=== PATIENT | female | born 1930 | race Caucasian/White ===

== ENCOUNTER 2016-10-07 02:12 | Inpatient (IN) | payer OTHER, MEDICARE ==
[~2016-10-07] VITALS: Ht 167.6 cm; Wt 69.3 kg
[2016-10-07] VITALS (8 sets, daily range): BP systolic 97–122; BP diastolic 45–59; PULSE 80–112; RESP 18–22; TEMP 97.2–98.5; O2SAT 94–100
[2016-10-07] MEDS ORDERED: ONDANSETRON HCL 4 MG/2 ML VIAL ONE (02:19)
[2016-10-07] MEDS ORDERED: SODIUM CHLORIDE 0.9% FLUSH 10 ML FLUSH IVF PRN (02:45)
[2016-10-07 02:58] LABS: AUTOMATED NEUTROPHIL # 7.1 TH/MM3 (1.8-7.7); BASOPHIL # 0.1 TH/MM3 (0-0.2); BASOPHIL % 0.9 % (0.0-2.0); EOSINOPHIL # 0.1 TH/MM3 (0-0.4); EOSINOPHIL % 1.2 % (0.0-4.0); HEMO FLAGS DIFF FINAL; LYMPH % 20.5 % (9.0-44.0); MEAN CORPUSCULAR HEMOGLOBIN 31.5 PG (27.0-34.0); MEAN CORPUSCULAR HGB CONC 34.3 % (32.0-36.0); MONO % 5.6 % (0.0-8.0); NEUT % 71.8 % (16.0-70.0); PLATELET COUNT 221 TH/MM3 (150-450); RED BLOOD COUNT 4.13 MIL/MM3 (4.00-5.30); RED CELL DISTRIBUTION WIDTH 15.8 % (11.6-17.2); WHITE BLOOD COUNT 9.8 TH/MM3 (4.0-11.0)
[2016-10-07] MEDS ORDERED: ONDANSETRON HCL 4 MG/2 ML VIAL IV PUSH ONE (03:00)
[2016-10-07 03:08] LABS: APTT (PATIENT) 22.9 SEC (24.3-30.1); PROTHROMBIN TIME - PATIENT 10.8 SEC (9.8-11.6)
[2016-10-07 03:14] LABS: ALT (GPT) 75 U/L (10-53); ANION GAP 8 MEQ/L (5-15); AST (GOT) 109 U/L (15-37); BICARBONATE 25.2 MEQ/L (21.0-32.0); CHLORIDE 107 MEQ/L (98-107); GLOMERULAR FILTRATION RATE 52 ML/MIN (>89); POTASSIUM 4.1 MEQ/L (3.5-5.1); SODIUM (NA) 140 MEQ/L (136-145)
--- NOTE | 2016-10-07 03:14 | RADRPT ---
EXAM DATE/TIME: 10/07/2016 02:59 [facility] COMPARISON: No previous studies available for comparison. INDICATIONS : Short of breath. MEDICAL HISTORY : None. SURGICAL HISTORY : None. ENCOUNTER: Initial ACUITY: 1 day PAIN SCORE: 6/10 LOCATION: Bilateral chest FINDINGS: There is bilateral mostly basilar lung consolidation, worse on the right. Heart size enlarged. Mitral annular calcifications present. Tortuous atherosclerotic aorta. CONCLUSION: 1. Bilateral mostly basilar lung consolidation. Cardiomegaly. Findings could be characteristic of con gestive heart failure. Cannot exclude underlying pneumonia on the right. No pneumothorax. Parker Holman MD on October 07, 2016 at 3:12 Board Certified Radiologist. This report was verified electronically.
[2016-10-07] MEDS ORDERED: FUROSEMIDE 40 MG/4 ML VIAL IV PUSH ONE (03:15)
[2016-10-07 03:20] LABS: ALKALINE PHOSPHATASE 122 U/L (45-117); BLOOD UREA NITROGEN 24 MG/DL (7-18); TOTAL BILIRUBIN ADULT 0.7 MG/DL (0.2-1.0)
[2016-10-07 03:28] LABS: CREATINE KINASE 94 U/L (26-192)
[2016-10-07] MEDS ORDERED: ASPIRIN 81 MG CHEW TAB CHEW ONE (03:45)
[2016-10-07] MEDS ORDERED: METF500T PO (03:59)
[2016-10-07] MEDS ORDERED: LEVO25TA4 PO (03:59)
[2016-10-07] MEDS ORDERED: TRAZ50TA12 PO (03:59)
[2016-10-07] MEDS ORDERED: TRAM50TA PO (03:59)
[2016-10-07] MEDS ORDERED: SIMV5TAB3 PO (03:59)
--- NOTE | 2016-10-07 04:19 | PD ---
HPI Chief Complaint: Respiratory Distress Time Seen by Provider: 02:32 Travel History International Travel<30 days: No Contact w/Intl Traveler<30days: No Traveled to known affect area: No History of Present Illness HPI Patient is a 86 year old female who comes in complaining of SOB. She says she has had worsening SOB for the past month. Tonight it got much worse and she had to call 9--1. When EMS arrived, she had an oxygen saturation of 80% and was struggling to breath. She was given albuterol and placed on CPAP. She says she never had any chest pain. She does say she has been feeling weak. Laying down and any exertion make the SOB worse. She denies fever or chills. She has not had any swelling of her extremities. PFSH Past Medical History High Cholesterol: Yes Diabetes: Yes Patient Takes Glucophage: Yes Diminished Hearing: No Thyroid Disease: Yes Tetanus Vaccination: Unknown Influenza Vaccination: Yes Social History Alcohol Use: No Tobacco Use: No Substance Use: No Allergies-Medications (Allergen,Severity, Reaction): Coded Allergies: Penicillin (Verified Allergy, Unknown, 10/07/16) Reported Meds & Prescriptions Reported Meds & Active Scripts Active Reported Simvastatin 5 Mg Tab 5 Mg PO DAILY Metformin (Metformin HCl) 500 Mg Tab 500 Mg PO DAILY With a meal Levothyroxine (Levothyroxine Sodium) 25 Mcg Tab 25 Mcg PO DAILY Tramadol (Tramadol HCl) 50 Mg Tab 50 Mg PO Q4H PRN Trazodone (Trazodone HCl) 50 Mg Tab 50 Mg PO HS Review of Systems Except as stated in HPI: all other systems reviewed are Neg General / Constitutional: No: Fever, Chills HENT: No: Headaches Cardiovascular: No: Chest Pain or Discomfort Respiratory: Positive: Shortness of Breath Gastrointestinal: No: Nausea, Vomiting Musculoskeletal: No: Edema, Pain Skin: No Rash, No Change in Pigmentation Neurologic: Positive: Weakness Physical Exam Narrative GENERAL: Awake and alert, in mild respiratory distress. SKIN: Focused skin assessment warm/dry. HEAD: Atraumatic. Normocephalic. EYES: Pupils equal and round. No scleral icterus. ENT: Mucous membranes pink and moist. NECK: Trachea midline. No JVD. CARDIOVASCULAR: Regular rate and rhythm. No murmur appreciated. RESPIRATORY: No accessory muscle use. Crackles at both lung bases. Breath sounds equal bilaterally. GASTROINTESTINAL: Abdomen soft, non-tender, nondistended. MUSCULOSKELETAL: No obvious deformities. No clubbing. No cyanosis. No edema. NEUROLOGICAL: Awake and alert. No obvious cranial nerve deficits. Motor grossly within normal limits. Normal speech. PSYCHIATRIC: Appropriate mood and affect; insight and judgment normal. Data Data Last Documented VS Vital Signs Date Time Temp Pulse Resp B/P Pulse Ox O2 Delivery O2 Flow Rate FiO2 10/07/16 02:25 110 22 96 Nasal Cannula 4 10/07/16 02:20 97.7 115/58 Orders Ondansetron Inj (Zofran Inj) (10/07/16 02:19) Complete Blood Count With Diff (10/07/16 02:33) Comprehensive Metabolic Panel (10/07/16 02:33) B-Type Natriuretic Peptide (10/07/16 02:33) Act Partial Throm Time (Ptt) (10/07/16 02:33) Prothrombin Time / Inr (Pt) (10/07/16 02:33) Ckmb (Isoenzyme) Profile (10/07/16 02:33) Troponin I (10/07/16 02:33) Iv Access Insert/Monitor (10/07/16 02:33) Ecg Monitoring (10/07/16 02:33) Oximetry (10/07/16 02:33) Oxygen Administration (10/07/16 02:33) Chest, Single Ap (10/07/16 02:33) Sodium Chloride 0.9% Flush (Ns Flush) (10/07/16 02:45) Ondansetron Inj (Zofran Inj) (10/07/16 03:00) Furosemide Inj (Lasix Inj) (10/07/16 03:15) Aspirin Chew (Aspirin Chew) (10/07/16 03:45) Admit Order (Ed Use Only) (10/07/16 ) Labs Laboratory Tests Test 10/07/16 02:30 White Blood Count 9.8 TH/MM3 Red Blood Count 4.13 MIL/MM3 Hemoglobin 13.0 GM/DL Hematocrit 38.0 % Mean Corpuscular Volume 92.0 FL Mean Corpuscular Hemoglobin 31.5 PG Mean Corpuscular Hemoglobin 34.3 % Concent Red Cell Distribution Width 15.8 % Platelet Count 221 TH/MM3 Mean Platelet Volume 8.4 FL Neutrophils (%) (Auto) 71.8 % Lymphocytes (%) (Auto) 20.5 % Monocytes (%) (Auto) 5.6 % Eosinophils (%) (Auto) 1.2 % Basophils (%) (Auto) 0.9 % Neutrophils # (Auto) 7.1 TH/MM3 Lymphocytes # (Auto) 2.0 TH/MM3 Monocytes # (Auto) 0.5 TH/MM3 Eosinophils # (Auto) 0.1 TH/MM3 Basophils # (Auto) 0.1 TH/MM3 CBC Comment DIFF FINAL Differential Comment Prothrombin Time 10.8 SEC Prothromb Time International 1.0 RATIO Ratio Activated Partial 22.9 SEC Thromboplast Time Sodium Level 140 MEQ/L Potassium Level 4.1 MEQ/L Chloride Level 107 MEQ/L Carbon Dioxide Level 25.2 MEQ/L Anion Gap 8 MEQ/L Blood Urea Nitrogen 24 MG/DL Creatinine 1.00 MG/DL Estimat Glomerular Filtration 52 ML/MIN Rate Random Glucose 233 MG/DL Calcium Level 9.1 MG/DL Total Bilirubin 0.7 MG/DL Aspartate Amino Transf 109 U/L (AST/SGOT) Alanine Aminotransferase 75 U/L (ALT/SGPT) Alkaline Phosphatase 122 U/L Total Creatine Kinase 94 U/L Troponin I 0.14 NG/ML B-Type Natriuretic Peptide 429 PG/ML Total Protein 6.7 GM/DL Albumin 3.5 GM/DL Thyroid Stimulating Hormone 0.416 uIU/ML 3rd Gen [facility] Medical Decision Making Medical Screen Exam Complete: Yes Emergency Medical Condition: Yes Interpretation(s) ECG shows sinus tachycardia, no ST elevation, t wave inversions in V5 and V6, 1mm depression in I and avL. Differential Diagnosis ACS vs pneumonia vs CHF Narrative Course Patient is a 86 year old female who comes in complaining of SOB. Exam shows crackles at both bases of the lungs. Patient is maintaining an oxygen saturation of 96% on NC. She is much more comfortable with her breathing now. IV established, labs sent. Connected to a dynamometer tuner. Labs show a troponin of 0.14. Patient given aspirin. She never had chest pain , so will hold heparin for now and see if her troponin goes up. BNP is elevated to 429. Given Lasix. AST and ALT are also mildly elevated. Chest XR shows bilateral pleural effusions and cardiomegaly. Patient will be admitted for further management. Diagnosis Primary Impression: CHF (congestive heart failure) Qualified Code: I50.21 - Acute systolic congestive heart failure Additional Impression: Hypoxia Admitting Information Admitting Physician Requests: Admit Donna Carreno MD Oct 07, 2016 04:19
[2016-10-07] MEDS ORDERED: LEVOFLOXACIN 750 MG TAB PO ONE (04:45)
[2016-10-07] MEDS ORDERED: traMADol HCL 50 MG TAB PO PRN (04:45)
[2016-10-07] MEDS ORDERED: BISACODYL 10 MG SUPP PR PRN (04:45)
[2016-10-07] MEDS ORDERED: SENNOSIDES 8.6 MG TAB PO PRN (04:45)
[2016-10-07] MEDS ORDERED: NALOXONE HCL 0.4 MG/ML AMP IV PRN (04:45)
[2016-10-07] MEDS ORDERED: ONDANSETRON HCL 4 MG/2 ML VIAL IVP PRN (04:45)
[2016-10-07] MEDS ORDERED: MAGNESIUM HYDROXIDE SUSP 30 ML CUP PO PRN (04:45)
[2016-10-07] MEDS ORDERED: SODIUM CHLORIDE 0.9% FLUSH 10 ML FLUSH IV FLUSH PRN (04:45)
[2016-10-07] MEDS ORDERED: DEXTROSE 50% IN WATER 50 ML VIAL(D50) IV PUSH PRN (05:00)
[2016-10-07] MEDS ORDERED: RESP: IPRATROPIUM 0.5 MG/2.5 ML NEB NEB PRN (05:00)
[2016-10-07] MEDS ORDERED: GLUCAGON 1 MG/ML VIAL OTHER PRN (05:00)
[2016-10-07] MEDS: LEVOTHYROXINE SODIUM 25 MCG TAB PO SCH (05:54)
--- NOTE | 2016-10-07 06:58 | RADRPT ---
EXAM DATE/TIME: 10/07/2016 06:36 [facility] COMPARISON: CHEST SINGLE AP, October 07, 2016, 2:59. INDICATIONS : Possible pneumonia. Short of breath. MEDICAL HISTORY : None. SURGICAL HISTORY : None. ENCOUNTER: Subsequent ACUITY: 2 days PAIN SCORE: 6/10 LOCATION: Bilateral chest FINDINGS: PA and lateral views of the chest demonstrate bilateral pleural effusions, right greater than left wi th basilar airspace consolidation. No pneumothorax. CONCLUSION: Basilar airspace disease and pleural effusions, right greater than left with cardiomegaly. Findings m ost characteristic of congestive heart failure. No significant change from earlier exam. Parker Holman MD on October 07, 2016 at 6:55 Board Certified Radiologist. This report was verified electronically.
[2016-10-07] MEDS: INSULIN ASPART SUPPLEMENTAL SCALE SQ SCH ×4 (07:00→21:00)
[2016-10-07] MEDS: SODIUM CHLORIDE 0.9% FLUSH 10 ML FLUSH IV FLUSH SCH ×2 (09:00→21:00)
[2016-10-07] MEDS ORDERED: HEPARIN-D5W INJ 250 ML IV SCH (10:00)
[2016-10-07 10:44] LABS: MEAN CELL VOLUME 89.6 FL (80.0-100.0); MEAN CORPUSCULAR HEMOGLOBIN 30.8 PG (27.0-34.0); MEAN CORPUSCULAR HGB CONC 34.4 % (32.0-36.0); PLATELET COUNT 191 TH/MM3 (150-450); RED BLOOD COUNT 3.68 MIL/MM3 (4.00-5.30); REVIEW FLAG FINAL; WHITE BLOOD COUNT 5.9 TH/MM3 (4.0-11.0)
[2016-10-07 10:52] LABS: APTT (PATIENT) 25.8 SEC (24.3-30.1); PROTHROMBIN TIME - PATIENT 10.9 SEC (9.8-11.6)
[2016-10-07] MEDS: PRAVASTATIN SOD 10 MG TAB PO SCH (11:20)
[2016-10-07] MEDS: ASPIRIN EC 81 MG TABEC PO SCH (11:20)
--- NOTE | 2016-10-07 11:42 | HHI.HP ---
HPI Service [facility] Primary Care Physician Merari Hopkins M.D. Admission Diagnosis CHF, SOB Diagnoses: Chief Complaint: Shortness of breath Travel History International Travel<30 Days: No Contact w/Intl Traveler <30 Da: No Traveled to Known Affected Are: No History of Present Illness 86-year-old female with past medical history of DM, HLD, depression/insomnia, hypothyroidism, Hx breast CA who presented with shortness of breath. The patient states that she's been having worsening shortness of breath over the past month. She states yesterday the shortness of breath became severe and she could not find a position to catch her breath so she called the paramedics. She actually had an appointment to see her PCP about this problem today. She states the shortness breath is worse whenever she lays flat. She states occasionally she gets mild leg swelling, none currently. She states she does not exert herself, so she does not know if that makes the shortness of breath worse. She denies any chest pain. She has been having night sweats recently. She's also been having dry coughing. She has been following with a reworker for a lung nodule seen on imaging 3 months ago, has follow-up imaging scheduled. She's not sure what her reworker name is. She also believes that she had an ultrasound for chest 3 or 4 months ago, believes that was normal. Review of Systems Except as stated in HPI: all other systems reviewed are Neg Past Family Social History Past Medical History Diabetes mellitus Hyperlipidemia Depression/insomnia History of lung nodule Hypothyroidism History of breast cancer treated with radiation, chemotherapy, mastectomy in 2006 Past Surgical History Mastectomy Hernia surgeries 2 due to bowel obstruction Cholecystectomy Hysterectomy with associated bladder surgery Appendectomy Reported Medications Simvastatin 5 Mg Tab 5 Mg PO DAILY Metformin (Metformin HCl) 500 Mg Tab 500 Mg PO DAILY With a meal Levothyroxine (Levothyroxine Sodium) 25 Mcg Tab 25 Mcg PO DAILY Tramadol (Tramadol HCl) 50 Mg Tab 50 Mg PO Q4H PRN Trazodone (Trazodone HCl) 50 Mg Tab 50 Mg PO HS Allergies: Coded Allergies: Penicillin (Verified Allergy, Unknown, 3/29/17) Active Ordered Medications Current Medications Medications (Trade) Dose Ordered Sig/Eddie Route Start Time Stop Time Status Last Admin (NS Flush) 2 ml UNSCH PRN IV FLUSH 10/07/16 04:45 (NS Flush) 2 ml BID IV FLUSH 10/07/16 09:00 (Zofran Inj) 4 mg Q6H PRN IVP 10/07/16 04:45 (Dulcolax Supp) 10 mg DAILY PRN GA 10/07/16 04:45 (Milk Of Magnesia Liq) 30 ml Q12H PRN PO 10/07/16 04:45 (Senokot) 17.2 mg Q12H PRN PO 10/07/16 04:45 (Narcan Inj) 0.4 mg UNSCH PRN IV 10/07/16 04:45 (Synthroid) 25 mcg DAILY@0600 PO 10/07/16 06:00 10/07/16 05:54 (Ultram) 50 mg Q4H PRN PO 10/07/16 04:45 (Desyrel) 50 mg HS PO 10/07/16 21:00 (Pravachol) 10 mg DAILY PO 10/07/16 09:00 10/07/16 11:20 (Levaquin) 750 mg DAILY PO 10/08/16 09:00 (Ecotrin Ec) 81 mg DAILY PO 10/07/16 09:00 10/07/16 11:20 (D50w (Vial) Inj) 25 ml UNSCH PRN IV PUSH 10/07/16 05:00 Glucagon 1 mg 1 mg UNSCH PRN OTHER 10/07/16 05:00 (Heparin-D5W Inj) 250 ml @ 0 mls/hr TITRATE IV 10/07/16 10:00 (Lasix Inj) 40 mg BID@09,18 IV PUSH 10/07/16 18:00 Family History Mother at age 32 of pneumonia during childbirth Father age 80 of PE Social History Denies any alcohol or tobacco use , lives at home by herself Physical Exam Vital Signs Vital Signs Date Time Temp Pulse Resp B/P Pulse Ox O2 Delivery O2 Flow Rate FiO2 10/07/16 05:13 80 18 97/45 96 4 10/07/16 04:45 87 18 119/58 100 Nasal Cannula 4 10/07/16 04:45 87 18 99 4 10/07/16 04:45 99 Nasal Cannula 4 10/07/16 02:25 110 22 96 Nasal Cannula 4 10/07/16 02:20 97.7 112 22 115/58 96 10/07/16 02:15 94 Nasal Cannula 4.00 10/07/16 02:15 94 4.00 Physical Exam GENERAL: Well-developed well-nourished. In no acute distress. SKIN: Warm and dry. No lesions noted. HEENT: Normocephalic. Pupils equal and round. Mucous membranes pink and moist. CARDIOVASCULAR: Regular rate and rhythm. No murmur appreciated. RESPIRATORY: No accessory muscle use. Clear to auscultation. Bibasilar crackles. GASTROINTESTINAL: Abdomen soft, non-tender, nondistended. Bowel sounds x4. MUSCULOSKELETAL: No obvious deformities. No clubbing or cyanosis. No edema. NEUROLOGICAL: Awake and alert. No focal neurological deficits. Moves upper and lower extremities spontaneously. Normal speech. PSYCHIATRIC: Appropriate mood and affect; insight and judgment normal. Laboratory Laboratory Tests Test 10/07/16 10/07/16 10/07/16 02:30 08:40 10:24 White Blood Count 9.8 5.9 Red Blood Count 4.13 3.68 Hemoglobin 13.0 11.3 Hematocrit 38.0 33.0 Mean Corpuscular Volume 92.0 89.6 Mean Corpuscular Hemoglobin 31.5 30.8 Mean Corpuscular Hemoglobin 34.3 34.4 Concent Red Cell Distribution Width 15.8 16.0 Platelet Count 221 191 Mean Platelet Volume 8.4 7.8 Neutrophils (%) (Auto) 71.8 Lymphocytes (%) (Auto) 20.5 Monocytes (%) (Auto) 5.6 Eosinophils (%) (Auto) 1.2 Basophils (%) (Auto) 0.9 Neutrophils # (Auto) 7.1 Lymphocytes # (Auto) 2.0 Monocytes # (Auto) 0.5 Eosinophils # (Auto) 0.1 Basophils # (Auto) 0.1 CBC Comment DIFF FINAL Differential Comment Prothrombin Time 10.8 10.9 Prothromb Time International 1.0 1.0 Ratio Activated Partial 22.9 25.8 Thromboplast Time Sodium Level 140 Potassium Level 4.1 Chloride Level 107 Carbon Dioxide Level 25.2 Anion Gap 8 Blood Urea Nitrogen 24 Creatinine 1.00 Estimat Glomerular Filtration 52 Rate Random Glucose 233 Calcium Level 9.1 Total Bilirubin 0.7 Aspartate Amino Transf 109 (AST/SGOT) Alanine Aminotransferase 75 (ALT/SGPT) Alkaline Phosphatase 122 Total Creatine Kinase 94 Troponin I 0.14 0.48 B-Type Natriuretic Peptide 429 Total Protein 6.7 Albumin 3.5 Thyroid Stimulating Hormone 0.416 3rd Gen Result Diagram: 10/07/16 1024 10/07/16229 Imaging Last Impressions Chest X-Ray 10/07/16232 Signed Impressions: Service Date/Time: Friday, October 07, 2016 02:59 - CONCLUSION: 1. Bilateral mostly basilar lung consolidation. Cardiomegaly. Findings could be characteristic of congestive heart failure. Cannot exclude underlying pneumonia on the right. No pneumothorax. Parker Holman MD Assessment and Plan Assessment and Plan 86-year-old female with past medical history of DM, HLD, depression/insomnia, hypothyroidism, Hx breast CA who presented with shortness of breath NSTEMI: Troponin 0.14->0.48. Third set pending. EKG with NSR, lateral T-wave inversions, no previous EKGs for comparison. Discussed with cardiology, Dr. Augustin, recommended treating for CHF for now, heparin drip, and he will evaluate the patient. Start on aspirin daily. Continue statin. Suspected new onset CHF: Presented with orthopnea, BNP 429, chest x-ray with bibasilar airspace disease and pleural effusions. Diuresis with IV Lasix. Monitor I's and O's. Echocardiogram. Cardiology eval as above. History of pulmonary nodule: With new pleural effusions as above. Continue Levaquin for now. Consult pulmonology. O2 and nebs as needed. Diabetes mellitus: Hold home metformin. SSI with Accu-Cheks. Check hemoglobin A1c. Other chronic medical conditions including hypothyroidism and insomnia: Stable at this time will continue home medications as indicated. DVT prophylaxis: On heparin GTT Written by Harris Dyer, acting as scribe for Dr. Breen on 10/07/16 at 11:42. All or portions of this note were transcribed by damian PHILLIPS. I, Dr. Magalis Breen personally performed the history, physical exam, and medical decision making; and confirmed the accuracy of the information in the transcribed note. Authenticated by Dr. Magalis Breen on 10/07/16 at 11:42. Discussed Condition With Patient with son at bedside, Harris Navarro Oct 07, 2016 11:42 Magalis Breen MD Oct 07, 2016 15:40
--- NOTE | 2016-10-07 12:26 | EC ---
Study Study Date:10/07/2016 STUDY CONCLUSIONS SUMMARY - Left ventricle: The cavity size was normal. Wall thickness was normal. Systolic function was normal. The estimated ejection fraction was 55%, in the range of 50% to 55%. Possible mild hypokinesis of the posterior myocardium. - Mitral valve: Severely calcified annulus. Moderate to severe regurgitation directed eccentrically and posteriorly. - Tricuspid valve: Mild regurgitation. - Pericardium, extracardiac: A trivial pericardial effusion was identified. If LV function is below 40, please consider prescribing an ACEI or ARB or document rationale for non-use. PROCEDURE DATA STUDY STATUS: Elective. Procedure: Transthoracic echocardiography. Image quality was good. Scanning was performed from the parasternal, apical, and subcostal acoustic windows. Study completion: The patient tolerated the procedure well. Transthoracic echocardiography. M-mode, complete 2D, complete spectral Doppler, and color Doppler. Patient status: Inpatient. CARDIAC ANATOMY LEFT VENTRICLE: The cavity size was normal. Wall thickness was normal. Systolic function was normal. The estimated ejection fraction was 55%, in the range of 50% to 55%. Regional wall motion abnormalities: Possible mild hypokinesis of the posterior myocardium. AORTIC VALVE: Trileaflet; mildly thickened leaflets. Doppler: Transvalvular velocity was within the normal range. There was no stenosis. No regurgitation. AORTA: Aortic root: The aortic root was normal in size. MITRAL VALVE: Severely calcified annulus. Doppler: Transvalvular velocity was within the normal range. There was no evidence for stenosis. Moderate to severe regurgitation directed eccentrically and posteriorly. LEFT ATRIUM: The atrium was at the upper limits of normal in size. RIGHT VENTRICLE: The cavity size was normal. Wall thickness was normal. PULMONIC VALVE: Doppler: Transvalvular velocity was within the normal range. There was no evidence for stenosis. No regurgitation. TRICUSPID VALVE: Structurally normal valve. Doppler: Transvalvular velocity was within the normal range. Mild regurgitation. PULMONARY ARTERY: The main pulmonary artery was normal-sized. Systolic pressure was within the normal range. RIGHT ATRIUM: The atrium was normal in size. PERICARDIUM: A trivial pericardial effusion was identified. Prepared and signed by Flynn Augustin [id number]
[2016-10-07] MEDS: LISINOPRIL 5 MG TAB PO SCH ×2 (13:21→22:52)
[2016-10-07] MEDS: POTASSIUM CHLORIDE 20 MEQ CONTROLLED RELEASE TAB PO SCH ×2 (13:21→22:52)
--- NOTE | 2016-10-07 14:41 | MB ---
cc: OMAR HERNANDEZ M.D. DATE OF CONSULTATION: 10/07/2016 REASON FOR CONSULTATION: Pulmonary edema. HISTORY OF PRESENT ILLNESS Judy Quinones is a 86-year-old female with no previous history of heart disease. She has had longstanding diabetes, she has hyperlipidemia. She began noticing shortness of breath for at least a month. She decided not to see her primary care doctor even though she was not feeling well. She has had orthopnea. She has not noticed any peripheral edema. Her breathing has gotten progressively worse to the point where it became acutely severe and she called paramedics and was brought to the hospital. Chest x-ray showing clear evidence of CHF and her echo showing severe mitral regurgitation. She has had a cardiac workup many years ago which was unremarkable, it was part of a preop clearance. She has not had any typical anginal pain. She did have some pain in her back by her left shoulder blade lasting about 20 minutes about two nights ago and no other symptoms that I could construe as angina. She has had radiation to the mediastinum when she had radiation for her breast cancer. PAST MEDICAL HISTORY Past medical history includes: 1. Type 2 diabetes. 2. Hypothyroidism on replacement therapy. 3. Hyperlipidemia on treatment. 4. History of lung nodule. 5. She had breast cancer in 2006 treated with mastectomy, chemotherapy and radiation therapy. 6. Spinal stenosis. 7. 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 8. Chronic back pain. PAST SURGICAL HISTORY Past surgical history includes: 1. Right mastectomy. 2. Hernia surgeries. 3. Cholecystectomy. 4. Hysterectomy. 5. Appendectomy. 6. Tonsillectomy. 7. Hemorrhoidectomy. 8. She has had right rotator cuff repair. SOCIAL HISTORY Lives alone. 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 She was born in [place]. 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 ALLERGIES PENICILLIN. FAMILY HISTORY Mother at age 82, she does not know her medical history. Her father of a pulmonary embolism and had angina before his , he was 80 years old. REVIEW OF SYSTEMS Notable for incontinence. PHYSICAL EXAMINATION GENERAL: Reveals an elderly but alert, spry female. She is wrapped in multiple blankets because she is cold. Shortness of breath has been improving since she came in. VITAL SIGNS: Charted. She is not hypertensive. She was hypoxic down to 80% when paramedics first arrived. HEENT: Exam unremarkable. NECK: Notable for jugular venous distension. CHEST: Shows bibasilar rales. CARDIAC: Exam shows a grade 2/6 mitral regurgitation murmur heard out lateral on the left anterior axillary line region. Normal first and second heart sounds. Regular rate and rhythm. ABDOMEN: Soft, nontender. EXTREMITIES: Show no peripheral edema. Peripheral pulses are intact. IMAGING STUDIES Chest x-ray showing cardiomegaly and CHF. ECHOCARDIOGRAM Echo shows preserved ejection fraction but with moderate to severe mitral regurgitation with a highly eccentric jet oriented posteriorly. LABORATORY DATA BUN is 24, creatinine 1.0. Liver tests are mildly elevated. Troponin has gone from 0.14 to 0.48. BNP is elevated at 429, hematocrit 33.0, it was 38.0 yesterday. IMPRESSION Acute CHF. Ejection fraction is normal, so we will classify it as acute diastolic CHF related to CHF due to mitral regurgitation. Troponin is mildly elevated but her sat was only 80% which has picked up, so do not know if this is a type 1 or a type 2 CO. She certainly does not have symptoms to suggest a type 1 CO. EKG just shows sinus rhythm, low voltage and nonspecific mildly inverted T-waves, V5, V6 and inferiorly. She seems to be improving with diuretic therapy. I am going to add LANA inhibitor for unloading purposes. I will see how her blood pressure responds. I would like to add a beta-harsha too, but I am going to start with the LANA inhibitor. She needs to continue diuresis, monitoring electrolytes. Further therapy to be determined. MD KALLI Bustillos/ARMIN /12:40 PM /2:08 PM
[2016-10-07 16:03] LABS: HEMOGLOBIN A1a 0.9 %; HEMOGLOBIN A1b 0.5 %; HEMOGLOBIN Ao 87.7 %; HEMOGLOBIN F 0.9 %; HEMOGLOBIN LA1C 1.8 %; HEMOGLOBIN P3 3.4 %
[2016-10-07] MEDS: FUROSEMIDE 40 MG/4 ML VIAL IV PUSH SCH (17:26)
[2016-10-07] MEDS: ENOXAPARIN SODIUM 80 MG/0.8 ML SYRINGE SQ SCH (17:26)
[2016-10-07 19:18] LABS: BLOOD GAS BASE EXCESS 3.4 mmol/L (-2-2); BLOOD GAS CARBOXYHEMOGLOBIN 1.7 % (0-4); BLOOD GAS HCO3 27 mmol/L (22-26); BLOOD GAS METHEMOGLOBIN 0.7 % (0-2); BLOOD GAS O2 HGB SATURATION 91 % (90-100); BLOOD GAS OXYGEN CONTENT 14.9 Vol % (12.0-20.0); BLOOD GAS PCO2 37 mmHg (38-42); BLOOD GAS PO2 63 mmHg (61-120); BLOOD GAS TOTAL HGB 11.7 G/DL (12.0-16.0); CRITICAL VALUE NO; TEMP CORR TO 98.6
[2016-10-07 19:19] LABS: DRAW SITE LT RADIAL; FIO2 21 %; NUMBER OF ARTERIAL PUNCTURES 1; OXYGEN DEVICE ROOM AIR; STAT NO; ULNAR PULSE PRESENT
--- NOTE | 2016-10-07 19:58 | EKG ---
Date Performed: 10/07/2016 Time Performed: 09:00:49 PTAGE: 86 years EKG: Sinus rhythm LOW QRS VOLTAGE IN EXTREMITY LEADS NONSPECIFIC ST & T-WAVE ABNORMALITY BORDERLINE ECG PREVIOUS TRACING : 10/07/2016 02.21 Compared to the previous tracing rate slower DOCTOR: Latasha Jacobo Interpretating Date/Time 10/07/2016 19:56:52
--- NOTE | 2016-10-07 20:20 | EKG ---
Date Performed: 10/07/2016 Time Performed: 02:21:40 PTAGE: 86 years EKG: SINUS TACHYCARDIA ST DEVIATION AND MODERATE T-WAVE ABNORMALITY ABNORMAL ECG NO PREVIOUS TRACING DOCTOR: Latasha Jacobo Interpretating Date/Time 10/07/2016 20:19:01
--- NOTE | 2016-10-07 21:09 | MB ---
cc: ROBYN RAI DATE OF CONSULTATION 10/07/2016 REASON FOR CONSULTATION Respiratory distress and hypoxia. HISTORY OF THE PRESENT ILLNESS This is an 86-year-old lady with a history of diabetes and depression as well as hypothyroidism presented to the emergency room with shortness of breath and epigastric distress. The patient apparently has been more short of breath over the past several weeks and on the day of admission she could not catch her breath and thus was brought by [facility] and evaluated in the emergency room. The patient also complained of some leg swelling but denied chest pains. She had some epigastric pains. She has had no nausea or vomiting but has reflux. She has been coughing and apparently does have a lung nodule which was evaluated [address] scan. PAST HISTORY The patient's past history has included: 1. Diabetes mellitus. 2. History of hyperlipidemia. 3. History of depression and anxiety. 4. History of hypothyroidism. 5. Prior history of breast cancer with radiation and chemotherapy. Mastectomy on the right and lumpectomy on the left. 6. She has had a bowel obstruction with two surgeries on her abdomen. 7. And a previous hysterectomy with bladder repair. 8. As well as a cholecystectomy. 9. And appendectomy. MEDICATIONS List: 1. Metformin 500 mg daily. 2. Levothyroxine 25 mcg a day. 3. Tramadol p.r.n. 4. Trazodone 50 milligrams bedtime. ALLERGIES PENICILLIN. FAMILY HISTORY Significant for pulmonary emboli in her father. Mother of pneumonia. SOCIAL HISTORY Habits, the patient smoked remotely for about 10 years and then quit. No alcohol use. Lives by herself. REVIEW OF SYSTEMS The patient has lost some weight. She has no headaches or blackouts. No urinary symptoms. No leg or calf muscle pains. She has some joint pains of her extremities. No GI symptoms except for history of diarrhea. PHYSICAL EXAMINATION GENERAL: This is average built elderly white female who is alert in no acute distress. VITAL SIGNS: Blood pressure is 120/60, pulse is 90, respiratory rate 18, temperature 97.5. HEENT: Head is normocephalic. Pupils are reactive and equal. Tongue is moist. Throat is not injected. NECK: Supple. No lymphadenopathy. No bruits or thyroid enlargement. CHEST: Decreased excursions with diminished breath sounds over the bases with a few basilar crackles. HEART: The heart sounds are regular S1-S2. No murmur. No S3 gallop. ABDOMEN: Soft. Protuberant without masses. No organomegaly or tenderness. EXTREMITIES: No edema. No calf tenderness. Reflexes 1+ with no gross motor deficits. NEUROLOGICAL: Cranial nerves are grossly intact. SKIN: No lesions observed. IMPRESSION 1. Pulmonary edema with basilar atelectasis. 2. History of lung nodule. 3. History of breast cancer status post radiation and chemotherapy and mastectomy. 4. Hyperlipidemia. 5. Diabetes mellitus type 2. PLAN The patient has been placed on O2 at 2 liters p.r.n. We will get a bedside pulmonary function study and get a CTA of the chest to rule out PE and also evaluate the lung nodule. We will follow up with a chest x-ray PA and lateral. The patient will be placed on DuoNeb solution with a nebulizer q.i.d. Diuretic therapy is being managed by cardiology and anticoagulation as well. Thank you Dr. Breen for this consultation. MD ALIYAH Davis/ABBI /6:48 PM /8:57 PM
[2016-10-07] MEDS: RESP: ALBUTEROL 2.5 MG/IPRATROPIUM 0.5 MG NEB (SCH) NEB (22:14)
[2016-10-07] MEDS: traZODone HCL 50 MG TAB PO SCH (22:52)
[2016-10-08] VITALS (10 sets, daily range): BP systolic 98–133; BP diastolic 54–67; PULSE 76–89; RESP 16–20; TEMP 97.4–97.8; O2SAT 93–98
[2016-10-08] MEDS: ENOXAPARIN SODIUM 80 MG/0.8 ML SYRINGE SQ SCH ×2 (06:36→18:41)
[2016-10-08] MEDS: LEVOTHYROXINE SODIUM 25 MCG TAB PO SCH (06:36)
[2016-10-08] MEDS: INSULIN ASPART SUPPLEMENTAL SCALE SQ SCH ×4 (06:36→21:00)
[2016-10-08] MEDS: RESP: ALBUTEROL 2.5 MG/IPRATROPIUM 0.5 MG NEB (SCH) NEB ×4 (08:00→19:53)
[2016-10-08 08:05] LABS: AUTOMATED NEUTROPHIL # 3.4 TH/MM3 (1.8-7.7); BASOPHIL % 0.6 % (0.0-2.0); EOSINOPHIL # 0.1 TH/MM3 (0-0.4); EOSINOPHIL % 1.8 % (0.0-4.0); HEMO FLAGS DIFF FINAL; LYMPH % 19.1 % (9.0-44.0); MEAN CELL VOLUME 89.2 FL (80.0-100.0); MEAN CORPUSCULAR HEMOGLOBIN 30.9 PG (27.0-34.0); MEAN CORPUSCULAR HGB CONC 34.7 % (32.0-36.0); MONO % 10.4 % (0.0-8.0); NEUT % 68.1 % (16.0-70.0); PLATELET COUNT 169 TH/MM3 (150-450); RED BLOOD COUNT 4.03 MIL/MM3 (4.00-5.30); RED CELL DISTRIBUTION WIDTH 15.6 % (11.6-17.2)
[2016-10-08 08:12] LABS: CHLORIDE 106 MEQ/L (98-107); POTASSIUM 3.7 MEQ/L (3.5-5.1); SODIUM (NA) 143 MEQ/L (136-145)
[2016-10-08] MEDS ORDERED: IOHEXOL 350 MG/ML 10 ML VIAL (for RAD DIAG) IV ONE (08:35)
[2016-10-08 08:44] LABS: ALKALINE PHOSPHATASE 92 U/L (45-117); ALT (GPT) 50 U/L (10-53); ANION GAP 8 MEQ/L (5-15); AST (GOT) 39 U/L (15-37); BICARBONATE 29.3 MEQ/L (21.0-32.0); BLOOD UREA NITROGEN 19 MG/DL (7-18); CREATINE KINASE 123 U/L (26-192); GLOMERULAR FILTRATION RATE 55 ML/MIN (>89); HDL CHOLESTEROL 72.6 MG/DL (40.0-60.0); LDL CHOLESTEROL 55 MG/DL (0-99); MAGNESIUM 2.1 MG/DL (1.5-2.5); TOTAL BILIRUBIN ADULT 0.7 MG/DL (0.2-1.0)
--- NOTE | 2016-10-08 08:56 | RADRPT ---
EXAM DATE/TIME: 10/08/2016 08:19 [facility] COMPARISON: No previous studies available for comparison. INDICATIONS : Shortness of breath, chest pain. IV CONTRAST: 50 cc Omnipaque 350 (iohexol) IV RADIATION DOSE: 11.65 CTDIvol (mGy) MEDICAL HISTORY : Diabetes mellitus type 2. SURGICAL HISTORY : None. ENCOUNTER: Initial ACUITY: 1 day PAIN SCALE: 0/10 LOCATION: chest TECHNIQUE: Volumetric scanning of the chest was performed using a pulmonary embolism protocol MIP images were re constructed. Using automated exposure control and adjustment of the mA and/or kV according to patien t size, radiation dose was kept as low as reasonably achievable to obtain optimal diagnostic quality images. FINDINGS: Examination of the pulmonary vasculature demonstrates good filling of the main, lobar and segmental b ranches. There are no filling defects to suggest pulmonary embolism. Multiplanar reconstructions are also unremarkable. Large right-sided and moderate left-sided effusion is present. No pulmonary nodules are identified. T here is subsegmental atelectasis in the both bases. Examination of the mediastinum demonstrates no abnormally enlarged lymph nodes by CT criteria. No axi llary or hilar abnormalities are identified. Coronary artery calcifications are present. The visualiz ed upper abdomen demonstrates no abnormality. There is heavy calcification of the mitral valve annulu s CONCLUSION: 1. No evidence of pulmonary embolism. 2. Bilateral effusions right greater than left Trevor Clemons MD on October 08, 2016 at 8:52 Board Certified Radiologist. This report was verified electronically.
[2016-10-08] MEDS ORDERED: LEVOFLOXACIN 750 MG TAB PO SCH (09:00)
--- NOTE | 2016-10-08 09:45 | PD.CARD.PN ---
Subjective Subjective Remarks SOB improving Objective Medications Current Medications Medications (Trade) Dose Ordered Sig/Eddie Route Start Time Stop Time Status Last Admin (NS Flush) 2 ml UNSCH PRN IV FLUSH 10/07/16 04:45 (NS Flush) 2 ml BID IV FLUSH 10/07/16 09:00 10/07/16 21:00 (Zofran Inj) 4 mg Q6H PRN IVP 10/07/16 04:45 (Dulcolax Supp) 10 mg DAILY PRN MD 10/07/16 04:45 (Milk Of Magnesia Liq) 30 ml Q12H PRN PO 10/07/16 04:45 (Senokot) 17.2 mg Q12H PRN PO 10/07/16 04:45 (Narcan Inj) 0.4 mg UNSCH PRN IV 10/07/16 04:45 (Synthroid) 25 mcg DAILY@0600 PO 10/07/16 06:00 10/08/16 06:36 (Ultram) 50 mg Q4H PRN PO 10/07/16 04:45 (Desyrel) 50 mg HS PO 10/07/16 21:00 10/07/16 22:52 (Pravachol) 10 mg DAILY PO 10/07/16 09:00 10/07/16 11:20 (Levaquin) 750 mg DAILY PO 10/08/16 09:00 (Ecotrin Ec) 81 mg DAILY PO 10/07/16 09:00 10/07/16 11:20 (D50w (Vial) Inj) 25 ml UNSCH PRN IV PUSH 10/07/16 05:00 (Glucagon Inj) 1 mg UNSCH PRN OTHER 10/07/16 05:00 (Lasix Inj) 40 mg BID@09,18 IV PUSH 10/07/16 18:00 10/07/16 17:26 (Prinivil) 5 mg BID PO 10/07/16 13:00 10/07/16 22:52 (Lovenox Inj) 68 mg Q12H SQ 10/07/16 18:00 10/08/16 06:36 Vital Signs / I&O Vital Signs Date Time Temp Pulse Resp B/P Pulse Ox O2 Delivery O2 Flow Rate FiO2 10/08/16 08:00 97.8 83 18 133/67 94 10/08/16 04:00 97.5 84 16 118/60 96 10/08/16 04:00 Room Air 10/08/16 00:01 97.6 86 17 111/60 96 10/08/16 00:01 Room Air 10/07/16 20:09 87 10/07/16 20:00 97.2 89 18 122/59 96 10/07/16 20:00 Room Air 10/07/16 14:45 98.5 87 20 109/58 95 10/07/16 13:05 90 20 114/56 99 Nasal Cannula 2 I/O 10/07/16 10/07/16 10/07/16 10/08/16 10/08/16 10/08/16 07:00 15:00 23:00 07:00 15:00 23:00 Intake Total 240 ml Balance 240 ml Intake Oral 240 ml # Voids 2 2 Physical Exam Alert CVP mildly elevated Chest dimished bases CV S1S2 RRR Abd soft Ext: no edema Laboratory Laboratory Tests Test 10/07/16 10/07/16 10/07/16 10/08/16 10:24 15:03 19:08 06:15 White Blood Count 5.9 TH/MM3 5.0 TH/MM3 Red Blood Count 3.68 MIL/MM3 4.03 MIL/MM3 Hemoglobin 11.3 GM/DL 12.5 GM/DL Hematocrit 33.0 % 36.0 % Mean Corpuscular Volume 89.6 FL 89.2 FL Mean Corpuscular Hemoglobin 30.8 PG 30.9 PG Mean Corpuscular Hemoglobin 34.4 % 34.7 % Concent Red Cell Distribution Width 16.0 % 15.6 % Platelet Count 191 TH/MM3 169 TH/MM3 Mean Platelet Volume 7.8 FL 8.2 FL Prothrombin Time 10.9 SEC Prothromb Time International 1.0 RATIO Ratio Activated Partial 25.8 SEC Thromboplast Time Troponin I 0.71 NG/ML Blood Gas Puncture Site LT RADIAL Blood Gas Patient Temperature 98.6 Blood Gas HCO3 27 mmol/L Blood Gas Base Excess 3.4 mmol/L Blood Gas Oxygen Saturation 91 % Arterial Blood pH 7.48 Arterial Blood Partial 37 mmHg Pressure CO2 Arterial Blood Partial 63 mmHg Pressure O2 Arterial Blood Oxygen Content 14.9 Vol % Arterial Blood 1.7 % Carboxyhemoglobin Arterial Blood Methemoglobin 0.7 % Blood Gas Hemoglobin 11.7 G/DL Oxygen Delivery Device ROOM AIR Blood Gas Inspired Oxygen 21 % Neutrophils (%) (Auto) 68.1 % Lymphocytes (%) (Auto) 19.1 % Monocytes (%) (Auto) 10.4 % Eosinophils (%) (Auto) 1.8 % Basophils (%) (Auto) 0.6 % Neutrophils # (Auto) 3.4 TH/MM3 Lymphocytes # (Auto) 1.0 TH/MM3 Monocytes # (Auto) 0.5 TH/MM3 Eosinophils # (Auto) 0.1 TH/MM3 Basophils # (Auto) 0.0 TH/MM3 CBC Comment DIFF FINAL Differential Comment Sodium Level 143 MEQ/L Potassium Level 3.7 MEQ/L Chloride Level 106 MEQ/L Carbon Dioxide Level 29.3 MEQ/L Anion Gap 8 MEQ/L Blood Urea Nitrogen 19 MG/DL Creatinine 0.96 MG/DL Estimat Glomerular Filtration 55 ML/MIN Rate Random Glucose 95 MG/DL Calcium Level 8.6 MG/DL Magnesium Level 2.1 MG/DL Total Bilirubin 0.7 MG/DL Aspartate Amino Transf 39 U/L (AST/SGOT) Alanine Aminotransferase 50 U/L (ALT/SGPT) Alkaline Phosphatase 92 U/L Total Creatine Kinase 123 U/L Total Protein 6.3 GM/DL Albumin 3.3 GM/DL Triglycerides Level 72 MG/DL Cholesterol Level 142 MG/DL LDL Cholesterol 55 MG/DL HDL Cholesterol 72.6 MG/DL Cholesterol/HDL Ratio 1.95 RATIO Imaging Last [address] Angiography 10/08/16 1842 Signed Impressions: Service Date/Time: September 08:19 - CONCLUSION: 1. No evidence of pulmonary embolism. 2. Bilateral effusions right greater than left Trevor Clemons MD Chest X-Ray 10/07/16 0233 Signed Impressions: Service Date/Time: Friday, October 07, 2016 02:59 - CONCLUSION: 1. Bilateral mostly basilar lung consolidation. Cardiomegaly. Findings could be characteristic of congestive heart failure. Cannot exclude underlying pneumonia on the right. No pneumothorax. Parker Holman MD Chest X-Ray 10/07/16 0000 Signed Impressions: Service Date/Time: Friday, October 07, 2016 06:36 - CONCLUSION: Basilar airspace disease and pleural effusions, right greater than left with cardiomegaly. Findings most characteristic of congestive heart failure. No significant change from earlier exam. Parker Holman MD Assessment and Plan Problem List: (1) CHF (congestive heart failure) Assessment and Plan: due to MR (2) Mitral regurgitation Assessment and Plan: Mod to severe (3) Pleural effusion due to CHF (congestive heart failure) Assessment and Plan: will need much more diuresis (4) Elevated troponin Assessment and Plan: possible type 2 CA secondary to prior severe hypoxia. No angina. Medical therapy due to age Problem Qualifiers (1) CHF (congestive heart failure): Qualified Code: I50.21 - Acute systolic congestive heart failure Flynn Augustin MD Oct 08, 2016 09:45
[2016-10-08] MEDS: LISINOPRIL 5 MG TAB PO SCH ×2 (10:25→23:01)
[2016-10-08] MEDS: PRAVASTATIN SOD 10 MG TAB PO SCH (10:25)
[2016-10-08] MEDS: ASPIRIN EC 81 MG TABEC PO SCH (10:25)
[2016-10-08] MEDS: SODIUM CHLORIDE 0.9% FLUSH 10 ML FLUSH IV FLUSH SCH ×2 (10:26→21:00)
[2016-10-08] MEDS: FUROSEMIDE 40 MG/4 ML VIAL IV PUSH SCH ×2 (10:26→18:41)
--- NOTE | 2016-10-08 11:01 | HHI.PR ---
Subjective Remarks Follow-up for shortness of breath. The patient reports her shortness of breath is much improved today. She's been having very good urine output. She denies any chest pain or palpitations. She states she been ambulating to the restroom with assistance and hasn't had any shortness of breath with activity. Objective Vitals Vital Signs Date Time Temp Pulse Resp B/P Pulse Ox O2 Delivery O2 Flow Rate FiO2 10/08/16 08:00 97.8 83 18 133/67 94 10/08/16 04:00 97.5 84 16 118/60 96 10/08/16 04:00 Room Air 10/08/16 00:01 97.6 86 17 111/60 96 10/08/16 00:01 Room Air 10/07/16 20:09 87 10/07/16 20:00 97.2 89 18 122/59 96 10/07/16 20:00 Room Air 10/07/16 14:45 98.5 87 20 109/58 95 10/07/16 13:05 90 20 114/56 99 Nasal Cannula 2 I/O 10/07/16 10/07/16 10/07/16 10/08/16 10/08/16 10/08/16 07:00 15:00 23:00 07:00 15:00 23:00 Intake Total 240 ml Balance 240 ml Intake Oral 240 ml # Voids 2 2 Result Diagram: 10/08/16 0615 10/08/16 [address] Angiography 10/08/16 1842 Signed Impressions: Service Date/Time: September 08:19 - CONCLUSION: 1. No evidence of pulmonary embolism. 2. Bilateral effusions right greater than left Trevor Clemons MD Chest X-Ray 10/07/16 0233 Signed Impressions: Service Date/Time: Friday, October 07, 2016 02:59 - CONCLUSION: 1. Bilateral mostly basilar lung consolidation. Cardiomegaly. Findings could be characteristic of congestive heart failure. Cannot exclude underlying pneumonia on the right. No pneumothorax. Parker Holman MD Objective Remarks GENERAL: Well-developed well-nourished. In no acute distress. SKIN: Warm and dry. No lesions noted. HEENT: Normocephalic. Pupils equal and round. Mucous membranes pink and moist. CARDIOVASCULAR: Regular rate and rhythm. No murmur appreciated. RESPIRATORY: No accessory muscle use. Clear to auscultation. Breath sounds equal bilaterally. Bibasilar crackles. GASTROINTESTINAL: Abdomen soft, non-tender, nondistended. Bowel sounds x4. MUSCULOSKELETAL: No obvious deformities. No clubbing or cyanosis. No edema. NEUROLOGICAL: Awake and alert. No focal neurological deficits. Moves upper and lower extremities spontaneously. Normal speech. PSYCHIATRIC: Appropriate mood and affect; insight and judgment normal. A/P Problem List: (1) Hypoxia ICD Code: R09.02 Status: Acute (2) CHF (congestive heart failure) ICD Code: I50.9 Status: Acute (3) Mitral regurgitation ICD Code: I34.0 Status: Acute (4) Elevated troponin ICD Code: R74.8 Status: Acute (5) Pleural effusion due to CHF (congestive heart failure) ICD Code: I50.9 Status: Acute Assessment and Plan 86-year-old female with past medical history of DM, HLD, depression/insomnia, hypothyroidism, Hx breast CA who presented with shortness of breath NSTEMI: Troponin 0.14->0.48->0.71. EKG with NSR, lateral T-wave inversions, no previous EKGs for comparison. Evaluated by cardiology, Dr. Augustin, patient is on full dose Lovenox, recommended medical management. Aspirin, beta harsha, statin. Lipid profile reviewed, LDL 55 and favorable HDL. New-onset diastolic CHF secondary to mitral regurgitation: Presented with orthopnea, BNP 429, chest x-ray with bibasilar airspace disease and pleural effusions. Echocardiogram showed EF 55% with severely calcified mitral annulus with moderate to severe regurgitation. Diuresis with IV Lasix. Monitor I's and O's. Cardiology consulted, started the patient on carvedilol and lisinopril. History of pulmonary nodule: With new pleural effusions as above. Continue Levaquin for now. Consulted pulmonology, recommended CTA chest. Chest CTA showed no PE, bilateral effusions right greater than left, and no nodules. O2 and nebs as needed. Appreciate pulmonology input. Diabetes mellitus: Hemoglobin A1c 4.7. Not requiring any sliding scale here. Likely DC home metformin. SSI with Accu-Cheks for now, but if blood glucoses remain low Will DC. Other chronic medical conditions including hypothyroidism and insomnia: Stable at this time will continue home medications as indicated. DVT prophylaxis: On full dose Lovenox Written by Harris Dyer, acting as scribe for Dr. Breen on 10/08/16 at 11:01. All or portions of this note were transcribed by damian PHILLIPS. I, Dr. Magalis Breen personally performed the history, physical exam, and medical decision making; and confirmed the accuracy of the information in the transcribed note. Authenticated by Dr. Magalis Breen on 10/08/16 at 11:01. Discharge Planning Discharge planning pending further clinical improvement and specialist clearance. Problem Qualifiers (1) CHF (congestive heart failure): Qualified Code: I50.31 - Acute diastolic congestive heart failure (2) Mitral regurgitation: Qualified Code: I34.0 - Mitral valve insufficiency, unspecified etiology Harris Dyer Oct 08, 2016 11:01 Magalis Breen MD Oct 08, 2016 13:08
[2016-10-08] MEDS: POTASSIUM CHLORIDE 20 MEQ CONTROLLED RELEASE TAB PO SCH ×3 (13:11→23:01)
--- NOTE | 2016-10-08 18:59 | HHI.PR ---
Subjective Remarks She is better. Off O2 . CTA chest shows Bilateral effusions and no Nodules Objective Vital Signs Date Time Temp Pulse Resp B/P Pulse Ox O2 Delivery O2 Flow Rate FiO2 10/08/16 16:00 97.4 80 20 114/54 96 10/08/16 12:39 95 21 10/08/16 12:00 97.6 76 20 112/59 93 10/08/16 10:35 Nasal Cannula 2.00 10/08/16 10:35 83 10/08/16 08:00 97.8 83 18 133/67 94 10/08/16 04:00 97.5 84 16 118/60 96 10/08/16 04:00 Room Air 10/08/16 00:01 97.6 86 17 111/60 96 10/08/16 00:01 Room Air 10/07/16 20:09 87 10/07/16 20:00 97.2 89 18 122/59 96 10/07/16 20:00 Room Air I/O 10/07/16 10/07/16 10/07/16 10/08/16 10/08/16 10/08/16 07:00 15:00 23:00 07:00 15:00 23:00 Intake Total 240 ml 480 ml Output Total 1000 ml Balance 240 ml -520 ml Intake Oral 240 ml 480 ml Output Urine Total 1000 ml # Voids 2 2 2 # Bowel Movements 0 Result Diagram: 10/08/16 0615 10/08/16 0615 Objective Remarks GENERAL: This is average built elderly white female who is alert in no acute distress. HEENT: Head is normocephalic. Pupils are reactive and equal. Tongue is moist. Throat is not injected. NECK: Supple. No lymphadenopathy. No bruits or thyroid enlargement. CHEST: Decreased excursions with diminished breath sounds over the bases. HEART: The heart sounds are regular S1-S2. No murmur. No S3 gallop. ABDOMEN: Soft. Protuberant without masses. No organomegaly or tenderness. EXTREMITIES: No edema. No calf tenderness. Reflexes 1+ with no gross motor deficits. NEUROLOGICAL: Cranial nerves are grossly intact. SKIN: No lesions observed. Assessment and Plan Assessment and Plan IMPRESSION 1. Pulmonary edema with basilar atelectasis. 2. History of lung nodule. 3. History of breast cancer status post radiation and chemotherapy and mastectomy. 4. Hyperlipidemia. 5. Diabetes mellitus type 2. Plan : 1. Get ultrasound of chest for effusions. 2. D/C O2. 3. Continue diuretics. 4. Albuterol nebs qid , PRN. 5. Cardiac Evaluation. 6. Home soon Jaja Franco MD Oct 08, 2016 18:59
--- NOTE | 2016-10-08 19:03 | PD.PN.STU ---
Subjective Remarks Resting comfortably in bed, sitting up and eating lunch. On NC 1L O2 sats 93. No SOB, no chest pain. Objective Vitals Vital Signs Date Time Temp Pulse Resp B/P Pulse Ox O2 Delivery O2 Flow Rate FiO2 10/08/16 16:00 97.4 80 20 114/54 96 10/08/16 12:39 95 21 10/08/16 12:00 97.6 76 20 112/59 93 10/08/16 10:35 Nasal Cannula 2.00 10/08/16 10:35 83 10/08/16 08:00 97.8 83 18 133/67 94 10/08/16 04:00 97.5 84 16 118/60 96 10/08/16 04:00 Room Air 10/08/16 00:01 97.6 86 17 111/60 96 10/08/16 00:01 Room Air 10/07/16 20:09 87 10/07/16 20:00 97.2 89 18 122/59 96 10/07/16 20:00 Room Air I/O 10/07/16 10/07/16 10/07/16 10/08/16 10/08/16 10/08/16 07:00 15:00 23:00 07:00 15:00 23:00 Intake Total 240 ml 480 ml Output Total 1000 ml Balance 240 ml -520 ml Intake Oral 240 ml 480 ml Output Urine Total 1000 ml # Voids 2 2 2 # Bowel Movements 0 Result Diagram: 10/08/16 0615 10/08/16 0615 Objective Remarks GENERAL: Thin elder woman, no acute distress. VITAL SIGNS: Temperature 97.6 Heart rate 76 Blood pressure 112/52 pulse ox 93 HEENT: Head is normocephalic. Pupils are reactive and equal. Tongue is moist. Throat is non injected. NECK: Supple. No lymphadenopathy. No bruits or thyroid enlargement. CHEST: Decreased excursions with diminished breath sounds over the bases, bibasilar crackles. HEART: The heart sounds are regular S1, S2. No murmur, No S3 gallop. ABDOMEN: Soft, nontender. EXTREMITIES: No edema, no calf tenderness. NEUROLOGICAL: No gross motor deficits. CN intact grossly. A/P Assessment and Plan IMPRESSION: 1. Pulmonary edema with bibasilar atelectasis. 2. History of lung nodule. 3. History of breast cancer status post radiation and chemotherapy and masectomy. 4. Hyperlipidemia. 5. DM type II 6. Bilateral pleural diffusions. PLAN: 1. Wean off O2 to RA keep sats >92 2. Continue sherri neb qid prn 3. Maintain BP 4. Continue Abx 5. U/S of pleural effusions to evaluate possible thoracentesis. Ninfa Franks M3 Oct 08, 2016 19:03
--- NOTE | 2016-10-08 21:20 | RADRPT ---
EXAM DATE/TIME: 10/08/2016 19:17 [facility] COMPARISON: No previous studies available for comparison. EXTERNAL COMPARISON : [facility], PET/CT - TUMOR METABOLISM, August 12, 2016, CT THORAX, W/O CONTRAST, May. INDICATIONS : Right pleural effusion. MEDICAL HISTORY : Hypercholesterolemia. Carcinoma, breast. Hypothyroidism. Lung nodule. IBS. Dyspnea. Diabetes. Spinost enosis. Hyperlipidemia. Insomnia. Depression. SURGICAL HISTORY : Cholecystectomy. Hysterectomy. Appendectomy. Mastectomy. Hernia surgeries x2. Chemotherapy. Radiation therapy. ENCOUNTER: Initial ACUITY: 1 day PAIN SCORE: 0/10 LOCATION: Right chest MEASUREMENTS: SKIN TO PARIETAL PLEURA: 1.6 cm SKIN TO MAX SAFE DEPTH: 4.7 cm ESTIMATED FLUID VOLUME: 948 cc FLUID COMPOSITION: simple FINDINGS: Pleural effusion as above. A ying was placed on the skin surface superficial to the pleural fluid col lection. CONCLUSION: Right pleural effusion confirmed sonographically and marked for subsequent thoracente sis. Tj Aguilar MD on October 08, 2016 at 21:17 Board Certified Radiologist. This report was verified electronically.
[2016-10-08] MEDS: traZODone HCL 50 MG TAB PO SCH (23:01)
[2016-10-08] MEDS: CARVEDILOL 3.125 MG TAB PO SCH (23:01)
[2016-10-09] VITALS (10 sets, daily range): BP systolic 80–109; BP diastolic 46–80; PULSE 69–90; RESP 16–20; TEMP 97.3–98.3; O2SAT 90–98
[2016-10-09 05:50] LABS: BICARBONATE 28.5 MEQ/L (21.0-32.0); MAGNESIUM 2.3 MG/DL (1.5-2.5); POTASSIUM 4.4 MEQ/L (3.5-5.1)
[2016-10-09] MEDS: INSULIN ASPART SUPPLEMENTAL SCALE SQ SCH ×4 (06:50→20:05)
[2016-10-09] MEDS: LEVOTHYROXINE SODIUM 25 MCG TAB PO SCH (06:50)
[2016-10-09] MEDS: ENOXAPARIN SODIUM 80 MG/0.8 ML SYRINGE SQ SCH (06:50)
[2016-10-09] MEDS: RESP: ALBUTEROL 2.5 MG/IPRATROPIUM 0.5 MG NEB (SCH) NEB ×4 (08:22→19:47)
[2016-10-09] MEDS: SODIUM CHLORIDE 0.9% FLUSH 10 ML FLUSH IV FLUSH SCH ×2 (09:00→20:04)
[2016-10-09] MEDS: LISINOPRIL 5 MG TAB PO SCH (10:14)
[2016-10-09] MEDS: ASPIRIN EC 81 MG TABEC PO SCH (10:14)
[2016-10-09] MEDS: PRAVASTATIN SOD 10 MG TAB PO SCH (10:15)
[2016-10-09] MEDS: POTASSIUM CHLORIDE 20 MEQ CONTROLLED RELEASE TAB PO SCH ×2 (10:15→14:31)
[2016-10-09] MEDS: FUROSEMIDE 20 MG/2 ML VIAL IV PUSH SCH ×2 (10:15→17:23)
[2016-10-09] MEDS: LEVOFLOXACIN 250 MG TAB PO SCH (10:15)
[2016-10-09] MEDS: CARVEDILOL 3.125 MG TAB PO SCH (10:15)
--- NOTE | 2016-10-09 12:58 | HHI.PR ---
Subjective Remarks Follow-up for shortness of breath. Patient states her shortness of breath continues to improve. She does still have an uncomfortable feeling in her chest whenever she takes a deep breath, but denies any specific pain. She denies any nausea, vomiting, abdominal pain. She reports that urine output seemed to slow down overnight. Objective Vitals Vital Signs Date Time Temp Pulse Resp B/P Pulse Ox O2 Delivery O2 Flow Rate FiO2 10/09/16 11:54 98.3 83 18 90/55 98 10/09/16 09:00 69 10/09/16 08:24 98 Nasal Cannula 2.00 10/09/16 08:00 97.9 72 20 109/53 98 10/09/16 04:24 Nasal Cannula 2.00 10/09/16 04:24 97.3 73 20 97/55 97 10/09/16 00:23 98.2 78 18 80/46 96 10/08/16 20:14 89 10/08/16 20:00 97.7 78 20 98/62 96 10/08/16 20:00 Nasal Cannula 2.00 10/08/16 19:53 98 Nasal Cannula 2.00 10/08/16 16:00 97.4 80 20 114/54 96 I/O 10/08/16 10/08/16 10/08/16 10/09/16 10/09/16 10/09/16 07:00 15:00 23:00 07:00 15:00 23:00 Intake Total 480 ml 650 ml 600 ml Output Total 1000 ml 600 ml 650 ml Balance -520 ml 50 ml -50 ml Intake Oral 480 ml 650 ml 600 ml Output Urine Total 1000 ml 600 ml 650 ml # Voids 2 # Bowel Movements 0 0 0 Result Diagram: 10/08/16 0615 10/09/16 [address] Angiography 10/08/16 1842 Signed Impressions: Service Date/Time: September 08:19 - CONCLUSION: 1. No evidence of pulmonary embolism. 2. Bilateral effusions right greater than left Trevor Clemons MD Chest Ultrasound 10/08/16 0000 Signed Impressions: Service Date/Time: September 19:17 - CONCLUSION: Right pleural effusion confirmed sonographically and marked for subsequent thoracentesis. Tj Aguilar MD Chest X-Ray 10/07/16 0233 Signed Impressions: Service Date/Time: Friday, October 07, 2016 02:59 - CONCLUSION: 1. Bilateral mostly basilar lung consolidation. Cardiomegaly. Findings could be characteristic of congestive heart failure. Cannot exclude underlying pneumonia on the right. No pneumothorax. Parker Holman MD Objective Remarks GENERAL: Well-developed well-nourished. In no acute distress. SKIN: Warm and dry. No lesions noted. HEENT: Normocephalic. Pupils equal and round. Mucous membranes pink and moist. CARDIOVASCULAR: Regular rate and rhythm. No murmur appreciated. RESPIRATORY: No accessory muscle use. Clear to auscultation. Decreased breath sounds in the bases. GASTROINTESTINAL: Abdomen soft, non-tender, nondistended. Bowel sounds x4. MUSCULOSKELETAL: No obvious deformities. No clubbing or cyanosis. No edema. NEUROLOGICAL: Awake and alert. No focal neurological deficits. Moves upper and lower extremities spontaneously. Normal speech. PSYCHIATRIC: Appropriate mood and affect; insight and judgment normal. A/P Problem List: (1) Hypoxia ICD Code: R09.02 Status: Acute (2) CHF (congestive heart failure) ICD Code: I50.9 Status: Acute (3) Mitral regurgitation ICD Code: I34.0 Status: Acute (4) Elevated troponin ICD Code: R74.8 Status: Acute (5) Pleural effusion due to CHF (congestive heart failure) ICD Code: I50.9 Status: Acute Assessment and Plan 86-year-old female with past medical history of DM, HLD, depression/insomnia, hypothyroidism, Hx breast CA who presented with shortness of breath NSTEMI: Troponin 0.14->0.48->0.71. EKG with NSR, lateral T-wave inversions, no previous EKGs for comparison. Evaluated by cardiology, Dr. Augustin, patient is on full dose Lovenox, recommended medical management. Aspirin, beta harsha, statin. Lipid profile reviewed, LDL 55 and favorable HDL. New-onset diastolic CHF secondary to mitral regurgitation: Presented with orthopnea, BNP 429, chest x-ray with bibasilar airspace disease and pleural effusions. Echocardiogram showed EF 55% with severely calcified mitral annulus with moderate to severe regurgitation. Diuresis with IV Lasix, decrease dose with increased creatinine. Monitor I's and O's. Cardiology consulted, started the patient on carvedilol and lisinopril. We'll decrease lisinopril dose with soft BP. Follow-up BMP. History of pulmonary nodule: With new pleural effusions as above. Continue Levaquin for now. Consulted pulmonology, recommended CTA chest. Chest CTA showed no PE, bilateral effusions right greater than left, and no nodules. O2 and nebs as needed. Pulmonology ordered chest ultrasound, showed right pleural effusion. Possible thoracentesis with pulm today? Appreciate pulmonology input. Diabetes mellitus: Hemoglobin A1c 4.7. Not requiring any sliding scale here. Will decrease or DC home metformin. SSI with Accu-Cheks for now, but if blood glucoses remain low will DC. Other chronic medical conditions including hypothyroidism and insomnia: Stable at this time will continue home medications as indicated. DVT prophylaxis: On full dose Lovenox Written by Harris Dyer, acting as scribe for Dr. Breen on 10/09/16 at 12:55. All or portions of this note were transcribed by damian PHILLIPS. I, Dr. Magalis Breen personally performed the history, physical exam, and medical decision making; and confirmed the accuracy of the information in the transcribed note. Authenticated by Dr. Magalis Breen on 10/09/16 at 12:55. Discharge Planning Discharge pending specialist clearance. Plan for [facility] at [place], case management consulted. Problem Qualifiers (1) CHF (congestive heart failure): Qualified Code: I50.31 - Acute diastolic congestive heart failure (2) Mitral regurgitation: Qualified Code: I34.0 - Mitral valve insufficiency, unspecified etiology Harris Dyer Oct 09, 2016 12:58 Magalis Breen MD Oct 09, 2016 15:30
--- NOTE | 2016-10-09 13:01 | PD.PN.STU ---
Subjective Remarks Patient feeling well, sitting up in chair. Son at bedside. On O2 NC 2L, not SOB , no CP. Objective Vitals Vital Signs Date Time Temp Pulse Resp B/P Pulse Ox O2 Delivery O2 Flow Rate FiO2 10/09/16 11:54 98.3 83 18 90/55 98 10/09/16 09:00 69 10/09/16 08:24 98 Nasal Cannula 2.00 10/09/16 08:00 97.9 72 20 109/53 98 10/09/16 04:24 Nasal Cannula 2.00 10/09/16 04:24 97.3 73 20 97/55 97 10/09/16 00:23 98.2 78 18 80/46 96 10/08/16 20:14 89 10/08/16 20:00 97.7 78 20 98/62 96 10/08/16 20:00 Nasal Cannula 2.00 10/08/16 19:53 98 Nasal Cannula 2.00 10/08/16 16:00 97.4 80 20 114/54 96 I/O 10/08/16 10/08/16 10/08/16 10/09/16 10/09/16 10/09/16 07:00 15:00 23:00 07:00 15:00 23:00 Intake Total 480 ml 650 ml 600 ml Output Total 1000 ml 600 ml 650 ml Balance -520 ml 50 ml -50 ml Intake Oral 480 ml 650 ml 600 ml Output Urine Total 1000 ml 600 ml 650 ml # Voids 2 # Bowel Movements 0 0 0 Result Diagram: 10/08/16 0615 10/09/16 0416 Objective Remarks GENERAL: This is average built elderly white female who is alert in no acute distress. HEENT: Head is normocephalic. Pupils are reactive and equal. Tongue is moist. Throat is not injected. NECK: Supple. No lymphadenopathy. No bruits or thyroid enlargement. CHEST: Decreased excursions with diminished breath sounds over the bases. No wheezing. HEART: The heart sounds are regular S1-S2. No murmur. No S3 gallop. ABDOMEN: Soft. Protuberant without masses. No organomegaly or tenderness. EXTREMITIES: No edema. No calf tenderness. Reflexes 1+ with no gross motor deficits. NEUROLOGICAL: Cranial nerves are grossly intact. SKIN: No lesions observed. A/P Assessment and Plan IMPRESSION 1. Pulmonary edema with basilar atelectasis. 2. History of lung nodule. 3. History of breast cancer status post radiation and chemotherapy and mastectomy. 4. Hyperlipidemia. 5. Diabetes mellitus type 2. 6. Pleural effusion bilaterally Plan : 1. Thoracentesis right chest 2. D/C O2 wean to RA as tolerated 3. Continue diuretics. 4. Albuterol nebs qid , PRN. 5. Cardiac Evaluation. 6. Hold Lovenox for thoracentesis 7. Home soon. Ninfa Franks M3 Oct 09, 2016 13:01
--- NOTE | 2016-10-09 17:35 | PD.CARD.PN ---
Subjective Subjective Remarks Notices pain with swallowing Objective Medications Current Medications Medications (Trade) Dose Ordered Sig/Eddie Route Start Time Stop Time Status Last Admin (NS Flush) 2 ml UNSCH PRN IV FLUSH 10/07/16 04:45 (NS Flush) 2 ml BID IV FLUSH 10/07/16 09:00 10/09/16 09:00 (Zofran Inj) 4 mg Q6H PRN IVP 10/07/16 04:45 (Dulcolax Supp) 10 mg DAILY PRN MT 10/07/16 04:45 (Milk Of Magnesia Liq) 30 ml Q12H PRN PO 10/07/16 04:45 (Senokot) 17.2 mg Q12H PRN PO 10/07/16 04:45 (Narcan Inj) 0.4 mg UNSCH PRN IV 10/07/16 04:45 (Synthroid) 25 mcg DAILY@0600 PO 10/07/16 06:00 10/09/16 06:50 (Ultram) 50 mg Q4H PRN PO 10/07/16 04:45 (Desyrel) 50 mg HS PO 10/07/16 21:00 10/08/16 23:01 (Pravachol) 10 mg DAILY PO 10/07/16 09:00 10/09/16 10:15 (Ecotrin Ec) 81 mg DAILY PO 10/07/16 09:00 10/09/16 10:14 (D50w (Vial) Inj) 25 ml UNSCH PRN IV PUSH 10/07/16 05:00 (Glucagon Inj) 1 mg UNSCH PRN OTHER 10/07/16 05:00 (Lovenox Inj) 68 mg Q12H SQ 10/07/16 18:00 Hold 10/09/16 06:50 (Levaquin) 250 mg DAILY PO 10/09/16 09:00 10/09/16 10:15 (Lasix Inj) 20 mg BID@,18 IV PUSH 10/09/16 09:00 10/09/16 17:23 (Prinivil) 5 mg DAILY PO 10/10/16 09:00 (KCl) 20 meq DAILY PO 10/10/16 09:00 Vital Signs / I&O Vital Signs Date Time Temp Pulse Resp B/P Pulse Ox O2 Delivery O2 Flow Rate FiO2 10/09/16 11:54 98.3 83 18 90/55 98 10/09/16 09:00 69 10/09/16 08:24 98 Nasal Cannula 2.00 10/09/16 08:00 97.9 72 20 109/53 98 10/09/16 08:00 Room Air 10/09/16 04:24 Nasal Cannula 2.00 10/09/16 04:24 97.3 73 20 97/55 97 10/09/16 00:23 98.2 78 18 80/46 96 10/08/16 20:14 89 10/08/16 20:00 97.7 78 20 98/62 96 10/08/16 20:00 Nasal Cannula 2.00 10/08/16 19:53 98 Nasal Cannula 2.00 I/O 10/08/16 10/08/16 10/08/16 10/09/16 10/09/16 10/09/16 07:00 15:00 23:00 07:00 15:00 23:00 Intake Total 480 ml 650 ml 600 ml Output Total 1000 ml 600 ml 650 ml Balance -520 ml 50 ml -50 ml Intake Oral 480 ml 650 ml 600 ml Output Urine Total 1000 ml 600 ml 650 ml # Voids 2 # Bowel Movements 0 0 0 Physical Exam Alert CVP nl Chest Absent breath sounds right base > left base. No rales CV S1S2 RRR; 2/6 MR murmur at anterior axillary line Abd soft Ext: no edema Laboratory Laboratory Tests Test 10/09/16 04:16 Sodium Level 141 MEQ/L Potassium Level 4.4 MEQ/L Chloride Level 105 MEQ/L Carbon Dioxide Level 28.5 MEQ/L Anion Gap 8 MEQ/L Blood Urea Nitrogen 31 MG/DL Creatinine 1.23 MG/DL Estimat Glomerular Filtration 41 ML/MIN Rate Random Glucose 118 MG/DL Calcium Level 8.7 MG/DL Magnesium Level 2.3 MG/DL Assessment and Plan Problem List: (1) CHF (congestive heart failure) Assessment and Plan: secondary to MR (2) Mitral regurgitation (3) Pleural effusion due to CHF (congestive heart failure) Assessment and Plan: Agree with thoracentesis of right lung (4) Elevated troponin Assessment and Plan: most likely secondary to severe hypoxia prior to admit from CHF. No angina (5) Acute renal insufficiency Assessment and Plan: Possibly from diuresis or low BP. carvedilol stopped. Poatassium supp lowered Problem Qualifiers (1) CHF (congestive heart failure): Qualified Code: I50.31 - Acute diastolic congestive heart failure (2) Mitral regurgitation: Qualified Code: I34.0 - Mitral valve insufficiency, unspecified etiology Flynn Augustin MD Oct 09, 2016 17:35
[2016-10-09 20:45] LABS: TOTAL PROTEIN,PLEURAL FLUID 3.2 GM/DL
--- NOTE | 2016-10-09 20:45 | RADRPT ---
EXAM DATE/TIME: 10/09/2016 20:21 [place] COMPARISON: CHEST SINGLE AP, October 07, 2016, 2:59. INDICATIONS : Evaluate chest, post thoracentesis. MEDICAL HISTORY : Carcinoma, breast. SURGICAL HISTORY : Cholecystectomy. Hysterectomy. Appendectomy. Mastectomy. Hernia surgeries x2. ENCOUNTER: Subsequent ACUITY: 3 days PAIN SCORE: 0/10 LOCATION: Bilateral chest FINDINGS: There has been interval improved aeration of the lungs status post thoracentesis. No pneumothorax is noted. The heart is stable. No acute focal pulmonary infiltrate is noted. Degenerative changes an d scoliosis of the thoracic spine are noted. CONCLUSION: 1. Improved aeration of the lungs status post thoracentesis. 2. No pneumothorax. Tj Aguilar MD on October 09, 2016 at 20:40 Board Certified Radiologist. This report was verified electronically.
[2016-10-09 21:25] LABS: PLEURAL FLUID LYMPHS 48 %; PLEURAL FLUID PH 7.5
[2016-10-09] MEDS: traZODone HCL 50 MG TAB PO SCH (23:14)
[2016-10-10] VITALS (9 sets, daily range): BP systolic 95–118; BP diastolic 50–67; PULSE 79–85; RESP 18–19; TEMP 97.8–98.2; O2SAT 94–97
[2016-10-10] MEDS: LEVOTHYROXINE SODIUM 25 MCG TAB PO SCH (05:09)
[2016-10-10] MEDS: INSULIN ASPART SUPPLEMENTAL SCALE SQ SCH ×4 (07:00→20:31)
[2016-10-10] MEDS: RESP: ALBUTEROL 2.5 MG/IPRATROPIUM 0.5 MG NEB (SCH) NEB ×4 (08:13→19:05)
[2016-10-10] MEDS: ASPIRIN EC 81 MG TABEC PO SCH (08:22)
[2016-10-10] MEDS: LISINOPRIL 5 MG TAB PO SCH (08:22)
[2016-10-10] MEDS: LEVOFLOXACIN 250 MG TAB PO SCH (08:22)
[2016-10-10] MEDS: POTASSIUM CHLORIDE 20 MEQ CONTROLLED RELEASE TAB PO SCH (08:23)
[2016-10-10] MEDS: FUROSEMIDE 20 MG/2 ML VIAL IV PUSH SCH (08:23)
[2016-10-10] MEDS: SODIUM CHLORIDE 0.9% FLUSH 10 ML FLUSH IV FLUSH SCH ×2 (08:23→20:30)
[2016-10-10] MEDS: PRAVASTATIN SOD 10 MG TAB PO SCH (08:23)
--- NOTE | 2016-10-10 08:28 | HHI.PR ---
Subjective Remarks Patient in nad. Says she feels improved after thoracentesis, less sob. No pain. No n/v/d/c. Feels tired. No cough. Objective Vitals Vital Signs Date Time Temp Pulse Resp B/P Pulse Ox O2 Delivery O2 Flow Rate FiO2 10/10/16 08:13 95 21 10/10/16 05:44 97.8 84 18 117/59 94 10/10/16 00:49 97.9 80 19 99/54 97 10/09/16 21:50 97.9 81 19 102/80 94 10/09/16 20:00 83 10/09/16 19:50 97 10/09/16 19:45 Nasal Cannula 2.00 10/09/16 16:00 97.8 90 16 98/53 90 10/09/16 11:54 98.3 83 18 90/55 98 10/09/16 09:00 69 I/O 10/09/16 10/09/16 10/09/16 10/10/16 10/10/16 10/10/16 07:00 15:00 23:00 07:00 15:00 23:00 Intake Total 600 ml 480 ml Output Total 650 ml 200 ml 400 ml Balance -50 ml 280 ml -400 ml Intake Oral 600 ml 480 ml Output Urine Total 650 ml 200 ml 400 ml # Bowel Movements 0 0 Result Diagram: 10/08/16 0615 10/09/16 0416 Imaging Last Impressions Chest X-Ray 10/09/16 0000 Signed Impressions: Service Date/Time: Sunday, October 09, 2016 20:21 - CONCLUSION: 1. Improved aeration of the lungs status post thoracentesis. 2. No pneumothorax. Tj Aguilar MD CT Angiography 10/08/16 1842 Signed Impressions: Service Date/Time: September 08:19 - CONCLUSION: 1. No evidence of pulmonary embolism. 2. Bilateral effusions right greater than left Trevor Clemons MD Chest Ultrasound 10/08/16 0000 Signed Impressions: Service Date/Time: September 19:17 - CONCLUSION: Right pleural effusion confirmed sonographically and marked for subsequent thoracentesis. Tj Aguilar MD Objective Remarks GENERAL: Well-developed well-nourished. In no acute distress. SKIN: Warm and dry. No lesions noted. HEENT: Normocephalic. Pupils equal and round. Mucous membranes pink and moist. CARDIOVASCULAR: Regular rate and rhythm. No murmur appreciated. RESPIRATORY: No accessory muscle use. Clear to auscultation. Decreased breath sounds in the bases. GASTROINTESTINAL: Abdomen soft, non-tender, nondistended. Bowel sounds x4. MUSCULOSKELETAL: No obvious deformities. No clubbing or cyanosis. No edema. NEUROLOGICAL: Awake and alert. No focal neurological deficits. Moves upper and lower extremities spontaneously. Normal speech. PSYCHIATRIC: Appropriate mood and affect; insight and judgment normal. A/P Problem List: (1) Hypoxia ICD Code: R09.02 Status: Acute (2) CHF (congestive heart failure) ICD Code: I50.9 Status: Acute (3) Mitral regurgitation ICD Code: I34.0 Status: Acute (4) Elevated troponin ICD Code: R74.8 Status: Acute (5) Pleural effusion due to CHF (congestive heart failure) ICD Code: I50.9 Status: Acute Assessment and Plan 86-year-old female with past medical history of DM, HLD, depression/insomnia, hypothyroidism, Hx breast CA who presented with shortness of breath NSTEMI: Troponin 0.14->0.48->0.71. EKG with NSR, lateral T-wave inversions, no previous EKGs for comparison. Evaluated by cardiology, Dr. Augustin, patient is on full dose Lovenox, recommended medical management. Aspirin, beta harsha, statin. Lipid profile reviewed, LDL 55 and favorable HDL. New-onset diastolic CHF secondary to mitral regurgitation: Presented with orthopnea, BNP 429, chest x-ray with bibasilar airspace disease and pleural effusions. Echocardiogram showed EF 55% with severely calcified mitral annulus with moderate to severe regurgitation. Diuresis with IV Lasix, decrease dose with increased creatinine. Monitor I's and O's. Cardiology consulted, started the patient on carvedilol and lisinopril. We'll decrease lisinopril dose with soft BP. Follow-up BMP. History of pulmonary nodule: With new pleural effusions as above. Continue Levaquin for now. Consulted pulmonology, recommended CTA chest. Chest CTA showed no PE, bilateral effusions right greater than left, and no nodules. O2 and nebs as needed. Pulmonology ordered chest ultrasound, showed right pleural effusion. S/P thoracentesis 10/09. Appreciate pulmonology input. Diabetes mellitus: Hemoglobin A1c 4.7. Not requiring any sliding scale here. Will decrease or DC home metformin. SSI with Accu-Cheks for now, but if blood glucoses remain low will DC. Other chronic medical conditions including hypothyroidism and insomnia: Stable at this time will continue home medications as indicated. DVT prophylaxis: On full dose Lovenox Discussed with the patient, nurse. PT recommends rehab , patient agrees to go to SNF says she lives alone. DC plan: DC to SNF when cleared by consultants and when arrangements done Problem Qualifiers (1) CHF (congestive heart failure): Qualified Code: I50.31 - Acute diastolic congestive heart failure (2) Mitral regurgitation: Qualified Code: I34.0 - Mitral valve insufficiency, unspecified etiology Magalis Breen MD Oct 10, 2016 08:28
--- NOTE | 2016-10-10 08:31 | HHI.DCPOC ---
Discharge Care Plan Goals to Promote Your Health * To prevent worsening of your condition and complications * To maintain your health at the optimal level Directions to Meet Your Goals Take your medications as prescribed Follow your dietary instruction Follow activity as directed Keep your appointments as scheduled Take your immunizations and boosters as scheduled If your symptoms worsen call your PCP, if no PCP go to Urgent Care Center or Emergency Room Smoking is Dangerous to Your Health. Avoid second hand smoke Call the 24-hour hour crisis hotline for domestic abuse at Magalis Breen MD Oct 10, 2016 08:31
--- NOTE | 2016-10-10 08:32 | HHI.DS ---
Discharge Summary Admission Date Oct 07, 2016 at 04:13 Discharge Date: Oct 11, 2016 Admitting Diagnosis CHF, SOB (1) Hypoxia ICD Code: R09.02 Diagnosis: Principal (2) CHF (congestive heart failure) ICD Code: I50.9 Diagnosis: Principal (3) Mitral regurgitation ICD Code: I34.0 Diagnosis: Principal (4) Elevated troponin ICD Code: R74.8 Diagnosis: Principal (5) Pleural effusion due to CHF (congestive heart failure) ICD Code: I50.9 Diagnosis: Principal Procedures thoracentesis Brief History - From Admission 86-year-old female with past medical history of DM, HLD, depression/insomnia, hypothyroidism, Hx breast CA who presented with shortness of breath. The patient states that she's been having worsening shortness of breath over the past month. She states yesterday the shortness of breath became severe and she could not find a position to catch her breath so she called the paramedics. She actually had an appointment to see her PCP about this problem today. She states the shortness breath is worse whenever she lays flat. She states occasionally she gets mild leg swelling, none currently. She states she does not exert herself, so she does not know if that makes the shortness of breath worse. She denies any chest pain. She has been having night sweats recently. She's also been having dry coughing. She has been following with a cattle rancher for a lung nodule seen on imaging 3 months ago, has follow-up imaging scheduled. She's not sure what her cattle rancher name is. She also believes that she had an ultrasound for chest 3 or 4 months ago, believes that was normal. CBC/BMP: 10/08/16 0615 10/09/16 0416 Significant Findings Laboratory Tests Test 10/07/16 10/07/16 10/07/16 10/07/16 08:40 10:24 15:03 19:08 Troponin I 0.48 NG/ML 0.71 NG/ML (0.02-0.05) (0.02-0.05) Red Blood Count 3.68 MIL/MM3 (4.00-5.30) Hemoglobin 11.3 GM/DL (11.6-15.3) Hematocrit 33.0 % (35.0-46.0) Blood Gas HCO3 27 mmol/L (22-26) Blood Gas Base Excess 3.4 mmol/L (-2-2) Arterial Blood pH 7.48 (7.380-7.420) Arterial Blood Partial 37 mmHg (38-42) Pressure CO2 Blood Gas Hemoglobin 11.7 G/DL (12.0-16.0) Test 10/08/16 10/09/16 10/09/16 06:15 04:16 19:30 Monocytes (%) (Auto) 10.4 % (0.0-8.0) Blood Urea Nitrogen 19 MG/DL (7-18) 31 MG/DL (7-18) Estimat Glomerular Filtration 55 ML/MIN (>89) 41 ML/MIN (>89) Rate Aspartate Amino Transf 39 U/L (15-37) (AST/SGOT) Total Protein 6.3 GM/DL (6.4-8.2) Albumin 3.3 GM/DL (3.4-5.0) HDL Cholesterol 72.6 MG/DL (40.0-60.0) Creatinine 1.23 MG/DL (0.50-1.00) Random Glucose 118 MG/DL (74-106) Pleural Fluid WBC 915 /MM3 (0-10) Pleural Fluid RBC 08121 /MM3 (0-0) Imaging Last Impressions Chest X-Ray 10/09/16 0000 Signed Impressions: Service Date/Time: Sunday, October 09, 2016 20:21 - CONCLUSION: 1. Improved aeration of the lungs status post thoracentesis. 2. No pneumothorax. Tj Aguilar MD CT Angiography 10/08/16 1842 Signed Impressions: Service Date/Time: September 08:19 - CONCLUSION: 1. No evidence of pulmonary embolism. 2. Bilateral effusions right greater than left Trevor Clemons MD Chest Ultrasound 10/08/16 0000 Signed Impressions: Service Date/Time: September 19:17 - CONCLUSION: Right pleural effusion confirmed sonographically and marked for subsequent thoracentesis. Tj Aguilar MD PE at Discharge GENERAL: Well-developed well-nourished. In no acute distress. SKIN: Warm and dry. No lesions noted. HEENT: Normocephalic. Pupils equal and round. Mucous membranes pink and moist. CARDIOVASCULAR: Regular rate and rhythm. No murmur appreciated. RESPIRATORY: No accessory muscle use. Clear to auscultation. Decreased breath sounds in the bases. GASTROINTESTINAL: Abdomen soft, non-tender, nondistended. Bowel sounds x4. MUSCULOSKELETAL: No obvious deformities. No clubbing or cyanosis. No edema. NEUROLOGICAL: Awake and alert. No focal neurological deficits. Moves upper and lower extremities spontaneously. Normal speech. PSYCHIATRIC: Appropriate mood and affect; insight and judgment normal. Hospital Course 86-year-old female with past medical history of DM, HLD, depression/insomnia, hypothyroidism, Hx breast CA who presented with shortness of breath NSTEMI: Troponin 0.14->0.48->0.71. EKG with NSR, lateral T-wave inversions, no previous EKGs for comparison. Evaluated by cardiology, Dr. Augustin, patient is on full dose Lovenox, recommended medical management. Aspirin, beta harsha, statin. Lipid profile reviewed, LDL 55 and favorable HDL. New-onset diastolic CHF secondary to mitral regurgitation: Presented with orthopnea, BNP 429, chest x-ray with bibasilar airspace disease and pleural effusions. Echocardiogram showed EF 55% with severely calcified mitral annulus with moderate to severe regurgitation. Diuresis with IV Lasix, decrease dose with increased creatinine. Monitor I's and O's. Cardiology consulted, started the patient on carvedilol and lisinopril. We'll decrease lisinopril dose with soft BP. Follow-up BMP. History of pulmonary nodule: With new pleural effusions as above. Continue Levaquin for now. Consulted pulmonology, recommended CTA chest. Chest CTA showed no PE, bilateral effusions right greater than left, and no nodules. O2 and nebs as needed. Pulmonology ordered chest ultrasound, showed right pleural effusion. S/P thoracentesis 10/09. Appreciate pulmonology input. Diabetes mellitus: Hemoglobin A1c 4.7. Not requiring any sliding scale here. Will decrease or DC home metformin. SSI with Accu-Cheks for now, but if blood glucoses remain low will DC. Other chronic medical conditions including hypothyroidism and insomnia: Stable at this time will continue home medications as indicated. DVT prophylaxis: On full dose Lovenox Discussed with the patient, nurse. PT recommends rehab , patient agrees to go to SNF says she lives alone. Improved, discharged in stable condition to SNF to follow up as OP with PCP and consultants. Pt Condition on Discharge: Stable Discharge Disposition: Discharge to SNF Discharge Time: > 30 minutes Discharge Instructions DIET: Follow Instructions for: Heart Healthy Diet Activities you can perform: Regular-No Restrictions Follow up Referrals: Cardiology - 1 Week PCP Follow-up - 3-5 Days Pulmonology - 1 Week with Jaja Franco MD New Medications: Aspirin DR (Aspirin EC) 81 Mg Tabdr 81 MG PO DAILY Blood Clot Prevention #30 TAB Levofloxacin (Levaquin) 250 Mg Tab 250 MG PO DAILY infection #3 TAB Lisinopril (Lisinopril) 5 Mg Tab 5 MG PO DAILY Blood Pressure Management #30 TAB Continued Medications: Levothyroxine (Levothyroxine) 25 Mcg Tab 25 MCG PO DAILY Thyroid #30 Ref 0 TAB Metformin (Metformin) 500 Mg Tab 500 MG PO DAILY With a meal Blood Sugar Management #30 Ref 0 TAB Simvastatin (Simvastatin) 5 Mg Tab 5 MG PO DAILY Cholesterol Management #30 Ref 0 TAB Tramadol (Tramadol) 50 Mg Tab 50 MG PO Q4H PRN PAIN #30 Ref 0 TAB (This prescription has been renewed) Trazodone (Trazodone) 50 Mg Tab 50 MG PO HS Control Depression #30 Ref 0 TAB (This prescription has been renewed ) Magalis Breen MD Oct 10, 2016 08:31
[2016-10-10] MEDS ORDERED: LISI-519 PO (08:34)
[2016-10-10] MEDS ORDERED: ASPI81TA11 PO (08:34)
[2016-10-10] MEDS ORDERED: LEVA250T PO (08:34)
[2016-10-10] MEDS ORDERED: TRAZ50TA12 PO (09:06)
[2016-10-10] MEDS ORDERED: TRAM50TA PO (09:06)
[2016-10-10 09:21] LABS: HEMATOCRIT 37.7 % (35.0-46.0); MEAN CELL VOLUME 91.2 FL (80.0-100.0); MEAN CORPUSCULAR HEMOGLOBIN 30.4 PG (27.0-34.0); MEAN CORPUSCULAR HGB CONC 33.3 % (32.0-36.0); PLATELET COUNT 171 TH/MM3 (150-450); RED BLOOD COUNT 4.13 MIL/MM3 (4.00-5.30); RED CELL DISTRIBUTION WIDTH 15.8 % (11.6-17.2); REVIEW FLAG FINAL; WHITE BLOOD COUNT 5.2 TH/MM3 (4.0-11.0)
[2016-10-10 11:39] LABS: BICARBONATE 25.8 MEQ/L (21.0-32.0); POTASSIUM 4.2 MEQ/L (3.5-5.1)
--- NOTE | 2016-10-10 14:16 | HHI.PR ---
Subjective Remarks She is better after thoracentesis. Off O2 . CXR is much better. Pleural fluid result pending. CTA chest shows Bilateral effusions and no Nodules Objective Vital Signs Date Time Temp Pulse Resp B/P Pulse Ox O2 Delivery O2 Flow Rate FiO2 10/10/16 12:00 97.9 80 18 95/50 97 10/10/16 11:57 Nasal Cannula 2.00 21 10/10/16 08:13 95 21 10/10/16 08:00 97.9 79 18 117/67 96 10/10/16 05:44 97.8 84 18 117/59 94 10/10/16 00:49 97.9 80 19 99/54 97 10/09/16 21:50 97.9 81 19 102/80 94 10/09/16 20:00 83 10/09/16 19:50 97 10/09/16 19:45 Nasal Cannula 2.00 10/09/16 16:00 97.8 90 16 98/53 90 I/O 10/09/16 10/09/16 10/09/16 10/10/16 10/10/16 10/10/16 07:00 15:00 23:00 07:00 15:00 23:00 Intake Total 600 ml 480 ml Output Total 650 ml 200 ml 400 ml Balance -50 ml 280 ml -400 ml Intake Oral 600 ml 480 ml Output Urine Total 650 ml 200 ml 400 ml # Bowel Movements 0 0 Result Diagram: 10/10/16 0847 10/10/16 0847 Objective Remarks GENERAL: This is average built elderly white female who is alert in no acute distress. HEENT: Head is normocephalic. Pupils are reactive and equal. Tongue is moist. Throat is not injected. NECK: Supple. No lymphadenopathy. No bruits or thyroid enlargement. CHEST: Decreased excursions with diminished breath sounds over the bases.Occ Crackles HEART: The heart sounds are regular S1-S2. No murmur. No S3 gallop. ABDOMEN: Soft. Protuberant without masses. No organomegaly or tenderness. EXTREMITIES: No edema. No calf tenderness. Reflexes 1+ with no gross motor deficits. NEUROLOGICAL: Cranial nerves are grossly intact. SKIN: No lesions observed. Assessment and Plan Assessment and Plan IMPRESSION 1. Pulmonary edema with basilar atelectasis. 2. History of lung nodule. 3. History of breast cancer status post radiation and chemotherapy and mastectomy. 4. Hyperlipidemia. 5. Diabetes mellitus type 2. Plan : 1. Resume lovenox 2. D/C O2. 3. Continue diuretics.and taper dose. 4. Albuterol nebs qid , PRN. 5. BMP in am. 6. PFT in am Jaja Franco MD Oct 10, 2016 14:16
[2016-10-10] MEDS: ENOXAPARIN SODIUM 80 MG/0.8 ML SYRINGE SQ SCH (17:07)
--- NOTE | 2016-10-10 21:53 | HHI.PR ---
Subjective Remarks Feeling better Objective Vital Signs Date Time Temp Pulse Resp B/P Pulse Ox O2 Delivery O2 Flow Rate FiO2 10/10/16 19:45 Nasal Cannula 2.00 10/10/16 16:00 98.0 80 18 97/56 97 10/10/16 15:16 97 21 10/10/16 12:00 97.9 80 18 95/50 97 10/10/16 11:57 Nasal Cannula 2.00 21 10/10/16 08:13 95 21 10/10/16 08:00 97.9 79 18 117/67 96 10/10/16 05:44 97.8 84 18 117/59 94 10/10/16 00:49 97.9 80 19 99/54 97 I/O 10/09/16 10/09/16 10/09/16 10/10/16 10/10/16 10/10/16 07:00 15:00 23:00 07:00 15:00 23:00 Intake Total 600 ml 480 ml 960 ml Output Total 650 ml 200 ml 400 ml Balance -50 ml 280 ml -400 ml 960 ml Intake Oral 600 ml 480 ml 960 ml Output Urine Total 650 ml 200 ml 400 ml # Voids 3 # Bowel Movements 0 0 1 Result Diagram: 10/10/16 0847 10/10/16 0847 Imaging Alert, fully oriented Lungs: ventilated, no rale, no crackle Abdomen: soft, no mass Ext: no edema Last Impressions Chest X-Ray 10/09/16 0000 Signed Impressions: Service Date/Time: Sunday, October 09, 2016 20:21 - CONCLUSION: 1. Improved aeration of the lungs status post thoracentesis. 2. No pneumothorax. Tj Aguilar MD CT Angiography 10/08/16 1842 Signed Impressions: Service Date/Time: September 08:19 - CONCLUSION: 1. No evidence of pulmonary embolism. 2. Bilateral effusions right greater than left Trevor Clemons MD Chest Ultrasound 10/08/16 0000 Signed Impressions: Service Date/Time: September 19:17 - CONCLUSION: Right pleural effusion confirmed sonographically and marked for subsequent thoracentesis. Tj Aguilar MD Current Medications Medications (Trade) Dose Ordered Sig/Eddie Route Start Time Stop Time Status Last Admin (NS Flush) 2 ml UNSCH PRN IV FLUSH 10/07/16 04:45 (NS Flush) 2 ml BID IV FLUSH 10/07/16 09:00 10/10/16 20:30 (Zofran Inj) 4 mg Q6H PRN IVP 10/07/16 04:45 (Dulcolax Supp) 10 mg DAILY PRN [place] 10/07/16 04:45 (Milk Of Magnesia Liq) 30 ml Q12H PRN PO 10/07/16 04:45 (Senokot) 17.2 mg Q12H PRN PO 10/07/16 04:45 (Narcan Inj) 0.4 mg UNSCH PRN IV 10/07/16 04:45 (Synthroid) 25 mcg DAILY@0600 PO 10/07/16 06:00 10/10/16 05:09 (Ultram) 50 mg Q4H PRN PO 10/07/16 04:45 (Desyrel) 50 mg HS PO 10/07/16 21:00 10/09/16 23:14 (Pravachol) 10 mg DAILY PO 10/07/16 09:00 10/10/16 08:23 (Ecotrin Ec) 81 mg DAILY PO 10/07/16 09:00 10/10/16 08:22 (D50w (Vial) Inj) 25 ml UNSCH PRN IV PUSH 10/07/16 05:00 (Glucagon Inj) 1 mg UNSCH PRN OTHER 10/07/16 05:00 (Lovenox Inj) 68 mg Q12H SQ 10/07/16 18:00 10/10/16 17:07 (Levaquin) 250 mg DAILY PO 10/09/16 09:00 10/10/16 08:22 (Prinivil) 5 mg DAILY PO 10/10/16 09:00 10/10/16 08:22 (KCl) 20 meq DAILY PO 10/10/16 09:00 10/10/16 08:23 (Lasix Inj) 20 mg DAILY IV PUSH 10/11/16 09:00 Assessment and Plan Problem List: (1) CHF (congestive heart failure) Status: Acute Plan: SOB significantly improve. Out of bed Ambulating. Waiting for bed at the rehab Can be DH when ok with the managing team (2) Pleural effusion due to CHF (congestive heart failure) Status: Acute Plan: Thoracocentesis yesterday. Doing better Problem Qualifiers (1) CHF (congestive heart failure): Qualified Code: I50.31 - Acute diastolic congestive heart failure Ashwin Castillo MD Oct 10, 2016 21:53
[2016-10-10] MEDS: traZODone HCL 50 MG TAB PO SCH (23:02)
[2016-10-11] VITALS: BP 101/52; PULSE 78; RESP 19; TEMP 97.2; O2SAT 93
[2016-10-11 04:00] VITALS: BP 113/56; PULSE 71; RESP 19; TEMP 98; O2SAT 95
[2016-10-11] MEDS: LEVOTHYROXINE SODIUM 25 MCG TAB PO SCH (05:03)
[2016-10-11] MEDS: ENOXAPARIN SODIUM 80 MG/0.8 ML SYRINGE SQ SCH (05:03)
[2016-10-11] MEDS: INSULIN ASPART SUPPLEMENTAL SCALE SQ SCH ×2 (07:00→11:00)
[2016-10-11] MEDS: RESP: ALBUTEROL 2.5 MG/IPRATROPIUM 0.5 MG NEB (SCH) NEB ×2 (07:45→12:13)
[2016-10-11 07:48] VITALS: O2SAT 92
[2016-10-11 08:00] VITALS: BP 102/59; PULSE 70; RESP 18; TEMP 97.6; O2SAT 97
[2016-10-11 08:21] LABS: BICARBONATE 25.2 MEQ/L (21.0-32.0); POTASSIUM 4.4 MEQ/L (3.5-5.1)
[2016-10-11 08:53] LABS: AUTOMATED NEUTROPHIL # 2.6 TH/MM3 (1.8-7.7); BASOPHIL % 0.9 % (0.0-2.0); EOSINOPHIL # 0.2 TH/MM3 (0-0.4); HEMATOCRIT 32.3 % (35.0-46.0); HEMO FLAGS DIFF FINAL; LYMPH % 24.8 % (9.0-44.0); LYMPHOCYTE # 1.1 TH/MM3 (1.0-4.8); MEAN CELL VOLUME 87.8 FL (80.0-100.0); MEAN CORPUSCULAR HEMOGLOBIN 30.7 PG (27.0-34.0); MEAN CORPUSCULAR HGB CONC 34.9 % (32.0-36.0); MONO % 9.9 % (0.0-8.0); NEUT % 59.4 % (16.0-70.0); PLATELET COUNT 143 TH/MM3 (150-450); RED BLOOD COUNT 3.68 MIL/MM3 (4.00-5.30); RED CELL DISTRIBUTION WIDTH 15.7 % (11.6-17.2); WHITE BLOOD COUNT 4.4 TH/MM3 (4.0-11.0)
[2016-10-11] MEDS ORDERED: FUROSEMIDE 20 MG/2 ML VIAL IV PUSH SCH (09:00)
[2016-10-11] MEDS: LISINOPRIL 5 MG TAB PO SCH (09:02)
[2016-10-11] MEDS: ASPIRIN EC 81 MG TABEC PO SCH (09:02)
[2016-10-11] MEDS: LEVOFLOXACIN 250 MG TAB PO SCH (09:03)
[2016-10-11] MEDS: PRAVASTATIN SOD 10 MG TAB PO SCH (09:04)
[2016-10-11] MEDS: POTASSIUM CHLORIDE 20 MEQ CONTROLLED RELEASE TAB PO SCH (09:04)
[2016-10-11] MEDS: SODIUM CHLORIDE 0.9% FLUSH 10 ML FLUSH IV FLUSH SCH (09:05)
[2016-10-11 12:00] VITALS: BP 107/57; PULSE 76; RESP 18; TEMP 98; O2SAT 96
--- NOTE | 2016-10-11 13:37 | HHI.PR ---
Subjective Remarks No acute events overnight. AVFSS. Patient states she feels well this morning. Denies any chest pain or shortness of breath. Is eating and drinking her normal. She is awaiting her ride to rehabilitation which should be here any minute. Objective Vitals Vital Signs Date Time Temp Pulse Resp B/P Pulse Ox O2 Delivery O2 Flow Rate FiO2 10/11/16 12:00 98.0 76 18 107/57 96 10/11/16 08:15 Room Air 10/11/16 08:00 97.6 70 18 102/59 97 10/11/16 07:48 92 21 10/11/16 04:00 98.0 71 19 113/56 95 10/11/16 00:00 97.2 78 19 101/52 93 10/10/16 20:02 83 10/10/16 20:00 98.2 85 19 118/58 95 10/10/16 19:45 Nasal Cannula 2.00 10/10/16 16:00 98.0 80 18 97/56 97 10/10/16 15:16 97 21 I/O 10/10/16 10/10/16 10/10/16 10/11/16 10/11/16 10/11/16 07:00 15:00 23:00 07:00 15:00 23:00 Intake Total 960 ml 240 ml 220 ml Output Total 400 ml 850 ml Balance -400 ml 960 ml 240 ml -630 ml Intake Oral 960 ml 240 ml 220 ml IV Total 0 ml 0 ml Output Urine Total 400 ml 850 ml # Voids 3 2 # Bowel Movements 1 0 Result Diagram: 10/11/16 0723 10/11/16 0723 Objective Remarks Gen.: No acute distress Head: Normocephalic. Atraumatic. EENT: Pupils equal round and reactive to light. Nose without drainage. Airway intact. Throat without injection. Cardiovascular: Regular rate and rhythm. No murmurs, rubs or gallops. Respiratory: Lungs clear to auscultation bilaterally. No wheezes or rhonchi. Abdomen: Soft, nontender, nondistended. No peritoneal signs. Musculoskeletal: No gross deformities. No edema. Skin: No obvious rashes or erythema. Neuro: Sensory and motor grossly intact. Cranial nerves II through XII grossly intact. Psych: Appropriate mood and affect A/P Problem List: (1) Hypoxia ICD Code: R09.02 Status: Acute (2) CHF (congestive heart failure) ICD Code: I50.9 Status: Acute (3) Mitral regurgitation ICD Code: I34.0 Status: Acute (4) Elevated troponin ICD Code: R74.8 Status: Acute (5) Pleural effusion due to CHF (congestive heart failure) ICD Code: I50.9 Status: Acute Assessment and Plan 86-year-old female with past medical history of DM, HLD, depression/insomnia, hypothyroidism, Hx breast CA who presented with shortness of breath NSTEMI: Troponin 0.14->0.48->0.71. EKG with NSR, lateral T-wave inversions, no previous EKGs for comparison. Evaluated by cardiology, Dr. Augustin, patient is on full dose Lovenox, recommended medical management. Aspirin, beta harsha, statin. Lipid profile reviewed, LDL 55 and favorable HDL. New-onset diastolic CHF secondary to mitral regurgitation: Presented with orthopnea, BNP 429, chest x-ray with bibasilar airspace disease and pleural effusions. Echocardiogram showed EF 55% with severely calcified mitral annulus with moderate to severe regurgitation. Diuresis with IV Lasix, decrease dose with increased creatinine. Monitor I's and O's. Cardiology consulted, started the patient on carvedilol and lisinopril. We'll decrease lisinopril dose with soft BP. Follow-up BMP. History of pulmonary nodule: With new pleural effusions as above. Continue Levaquin for now. Consulted pulmonology, recommended CTA chest. Chest CTA showed no PE, bilateral effusions right greater than left, and no nodules. O2 and nebs as needed. Pulmonology ordered chest ultrasound, showed right pleural effusion. S/P thoracentesis 10/09. Appreciate pulmonology input. Diabetes mellitus: Hemoglobin A1c 4.7. Not requiring any sliding scale here. Will decrease or DC home metformin. SSI with Accu-Cheks for now, but if blood glucoses remain low will DC. Other chronic medical conditions including hypothyroidism and insomnia: Stable at this time will continue home medications as indicated. DVT prophylaxis: On full dose Lovenox Discussed with the patient, nurse. PT recommends rehab , patient agrees to go to SNF says she lives alone. DC plan: DC to SNF today Problem Qualifiers (1) CHF (congestive heart failure): Qualified Code: I50.31 - Acute diastolic congestive heart failure (2) Mitral regurgitation: Qualified Code: I34.0 - Mitral valve insufficiency, unspecified etiology Anitra Ruiz MD R3 Oct 11, 2016 13:37
--- NOTE | 2016-10-13 19:41 | MP ---
cc: ROBYN FRANCO DATE OF SURGERY: 10/09/2016 PROCEDURE: Right thoracentesis PREOPERATIVE DIAGNOSIS Right pleural effusion POSTOPERATIVE DIAGNOSIS Right pleural effusion SURGEON Dr. Jordan Franco. PROCEDURE AND FINDINGS The patient's right posterior back was prepped with chlorhexidine solution following which sterile drapes were applied. 1% Xylocaine was then injected into the intercostal space in the posterior axillary line after which a small incision was made with a scalpel blade. Following this, a 14-gauge catheter was inserted into the pleural space and connected to a vacuum bottle. Approximately 500 cc of blood stained fluid was aspirated, at which time the flow stopped. The patient tolerated the procedure well. MD ALIYAH Davis/MATHEUS /7:43 PM /6:38 PM
== END 2016-10-11 14:01 | DRG 281 ==
LOC: NEPC 02:12 → NEDA 04:13 → NEDH 07:54 → N04A 14:19
PROVIDERS: ADMIT Family Medicine; ATTEND Family Medicine
PROC: 0W993ZX Drainage of Right Pleural Cavity, Percutaneous Approach, Diagnostic (ICD-10-PCS; principal; 2016-10-09)
DX: I50.31 Acute diastolic (congestive) heart failure (principal); I21.4 Non-ST elevation (NSTEMI) myocardial infarction; J90 Pleural effusion, not elsewhere classified; E11.9 Type 2 diabetes mellitus without complications; F32.9 Major depressive disorder, single episode, unspecified; E78.5 Hyperlipidemia, unspecified; Z79.84 Long term (current) use of oral hypoglycemic drugs; E03.9 Hypothyroidism, unspecified; G47.00 Insomnia, unspecified; R91.1 Solitary pulmonary nodule; I34.0 Nonrheumatic mitral (valve) insufficiency; M17.0 Bilateral primary osteoarthritis of knee; M19.012 Primary osteoarthritis, left shoulder; M19.011 Primary osteoarthritis, right shoulder; G89.29 Other chronic pain; Z87.891 Personal history of nicotine dependence
CPT/HCPCS: 32554; 36600; 71010; 71020; 71275; 76604; 80048; 80053; 80061; 82150; 82550; 82805; 82945; 82948; 83036; 83615; 83735; 83880; 83986; 84157; 84443; 84484; 85025; 85027; 85610; 85730; 87015; 87070; 87102; 87116; 87205; 87206; 88112; 88305; 89051; 93005; 93306; 94620; 94640; 94664; 96374; 96375; J1650; J1815; J1940; J2405; Q9967

== ENCOUNTER 2017-01-02 04:57 | Inpatient (IN) | payer OTHER, MEDICARE ==
[2017-01-02] VITALS (28 sets, daily range): BP systolic 78–122; BP diastolic 41–69; PULSE 76–131; RESP 12–32; TEMP 97.8–99; O2SAT 92–100
[~2017-01-02 04:57] MED LIST: ASPI81TA11 PO; LEVA250T PO; LEVO25TA4 PO; LISI-519 PO; METF500T PO; SIMV5TAB3 PO; TRAM50TA PO; TRAZ50TA12 PO
[2017-01-02] MEDS ORDERED: ONDANSETRON HCL 4 MG/2 ML VIAL ONE (04:58)
[2017-01-02] MEDS ORDERED: ONDANSETRON HCL 4 MG/2 ML VIAL IV PUSH ONE (05:15)
[2017-01-02] MEDS ORDERED: SODIUM CHLORIDE 0.9% FLUSH 10 ML FLUSH IVF PRN (05:15)
[2017-01-02] MEDS ORDERED: FUROSEMIDE 40 MG/4 ML VIAL IVP ONE (05:15)
--- NOTE | 2017-01-02 05:19 | PD ---
HPI Chief Complaint: Respiratory Distress Time Seen by Provider: 05:00 Travel History International Travel<30 days: No Contact w/Intl Traveler<30days: No Traveled to known affect area: No History of Present Illness HPI The patient is a 86-year-old female who presents emergency department via EMS for shortness of breath that started earlier this evening. The patient was awakened with shortness of breath and mild chest discomfort, described as tightness. The patient notes a history of congestive heart failure with recent admission, however, was recently taken off of her Lasix secondary to cramping. The patient's symptoms are worse when lying supine as well as walking. She notes minimal edema to lower extremities, but significant orthopnea. She denies any history of pulmonary embolism or DVT. The patient's marketing analytics lead is Dr. Flynn Augustin. The patient denied any diaphoresis, but did complain of mild nausea with one episode of vomiting upon arrival to the emergency department. Symptoms are moderate, worse with exertion and lying supine, with no current alleviating factors. PFSH Past Medical History Cancer: Yes Cardiovascular Problems: No High Cholesterol: Yes Congestive Heart Failure: Yes COPD: Yes Diabetes: Yes Patient Takes Glucophage: Yes (METFORMIN 01/01/17 @ 1200) Diminished Hearing: Yes (BILATERAL) Gastrointestinal Disorders: Yes Genitourinary: No Hypertension: Yes Musculoskeletal: No Neurologic: No Psychiatric: Yes (PATIENT TAKING LEXAPRO) Reproductive: No Thyroid Disease: Yes (HYPO) Tetanus Vaccination: Unknown Past Surgical History Abdominal Surgery: Yes (HERNIA REPAIR) Cholecystectomy: Yes Eye Surgery: Yes (CATARACT R EYE) Hysterectomy: Yes Mastectomy: Yes (R BREAST WITH IMPLANT) Other Surgery: Yes Social History Alcohol Use: No Tobacco Use: No Substance Use: No Allergies-Medications (Allergen,Severity, Reaction): Coded Allergies: Penicillin (Verified Allergy, Unknown, 01/02/17) Reported Meds & Prescriptions Reported Meds & Active Scripts Active Tramadol (Tramadol HCl) 50 Mg Tab 50 Mg PO Q4H PRN Trazodone (Trazodone HCl) 50 Mg Tab 50 Mg PO HS Lisinopril 5 Mg Tab 5 Mg PO DAILY Aspirin EC (Aspirin) 81 Mg Tabdr 81 Mg PO DAILY Reported Furosemide 40 Mg Tab 40 Mg PO DAILY Escitalopram (Escitalopram Oxalate) 20 Mg Tab 20 Mg PO DAILY Potassium Chloride ER (Potassium Chloride) 10 Meq Tab 10 Meq PO DAILY Simvastatin 5 Mg Tab 5 Mg PO DAILY Metformin (Metformin HCl) 500 Mg Tab 500 Mg PO DAILY With a meal Levothyroxine (Levothyroxine Sodium) 25 Mcg Tab 25 Mcg PO DAILY Review of Systems Except as stated in HPI: all other systems reviewed are Neg General / Constitutional: No: Fever Cardiovascular: Positive: Chest Pain or Discomfort, Dyspnea on exertion, No: Diaphoresis Respiratory: Positive: Cough (cough is clear to), Shortness of Breath, Orthopnea Gastrointestinal: Positive: Nausea, Vomiting, No: Abdominal Pain Musculoskeletal: Positive: Edema Physical Exam Narrative GENERAL: Awake, alert, pleasant 86 year-old female appears her stated age and is in moderate respiratory distress. SKIN: Focused skin assessment warm/dry. HEAD: Atraumatic. Normocephalic. EYES: Pupils equal and round. No scleral icterus. No injection or drainage. ENT: No nasal bleeding or discharge. Mucous membranes pink and moist. NECK: Trachea midline. No JVD. CARDIOVASCULAR: Regular, tachycardic with a heart rate of 130. RESPIRATORY: Tachypnea with a respiratory rate of 24. Diffuse rhonchi. GASTROINTESTINAL: Abdomen soft, non-tender, nondistended. MUSCULOSKELETAL: No obvious deformities. No clubbing. No cyanosis. Mild bilateral lower extremity pitting edema. NEUROLOGICAL: Awake and alert. No obvious cranial nerve deficits. Motor grossly within normal limits. Normal speech. PSYCHIATRIC: Appropriate mood and affect; insight and judgment normal. Data Data Last Documented VS Vital Signs Date Time Temp Pulse Resp B/P Pulse Ox O2 Delivery O2 Flow Rate FiO2 01/02/17 06:15 92 22 99/52 93 Nasal Cannula 4 01/02/17 05:38 97.8 01/02/17 05:00 100 Orders Ondansetron Inj (Zofran Inj) (01/02/17 04:58) Complete Blood Count With Diff (01/02/17 05:06) Comprehensive Metabolic Panel (01/02/17 05:06) B-Type Natriuretic Peptide (01/02/17 05:06) Act Partial Throm Time (Ptt) (01/02/17 05:06) Prothrombin Time / Inr (Pt) (01/02/17 05:06) Magnesium (Mg) (01/02/17 05:06) Ckmb (Isoenzyme) Profile (01/02/17 05:06) Troponin I (01/02/17 05:06) Iv Access Insert/Monitor (01/02/17 05:06) Electrocardiogram (01/02/17 05:06) Ecg Monitoring (01/02/17 05:06) Oximetry (01/02/17 05:06) Oxygen Administration (01/02/17 05:06) Chest, Single Ap (01/02/17 05:06) Sodium Chloride 0.9% Flush (Ns Flush) (01/02/17 05:15) Furosemide Inj (Lasix Inj) (01/02/17 05:15) Ondansetron Inj (Zofran Inj) (01/02/17 05:15) Aspirin Chew (Aspirin Chew) (01/02/17 06:15) Admit Order (Ed Use Only) (01/02/17 06:15) Labs Laboratory Tests Test 01/02/17 05:05 White Blood Count 11.8 TH/MM3 Red Blood Count 2.85 MIL/MM3 Hemoglobin 8.5 GM/DL Hematocrit 25.9 % Mean Corpuscular Volume 90.6 FL Mean Corpuscular Hemoglobin 29.6 PG Mean Corpuscular Hemoglobin 32.7 % Concent Red Cell Distribution Width 17.3 % Platelet Count 365 TH/MM3 Mean Platelet Volume 7.3 FL Neutrophils (%) (Auto) 67.0 % Lymphocytes (%) (Auto) 20.0 % Monocytes (%) (Auto) 6.7 % Eosinophils (%) (Auto) 5.2 % Basophils (%) (Auto) 1.1 % Neutrophils # (Auto) 7.9 TH/MM3 Lymphocytes # (Auto) 2.4 TH/MM3 Monocytes # (Auto) 0.8 TH/MM3 Eosinophils # (Auto) 0.6 TH/MM3 Basophils # (Auto) 0.1 TH/MM3 CBC Comment DIFF FINAL Differential Comment Prothrombin Time 10.1 SEC Prothromb Time International 0.9 RATIO Ratio Activated Partial 23.4 SEC Thromboplast Time Sodium Level 141 MEQ/L Potassium Level 4.1 MEQ/L Chloride Level 109 MEQ/L Carbon Dioxide Level 20.8 MEQ/L Anion Gap 11 MEQ/L Blood Urea Nitrogen 22 MG/DL Creatinine 1.10 MG/DL Estimat Glomerular Filtration 47 ML/MIN Rate Random Glucose 273 MG/DL Calcium Level 8.4 MG/DL Magnesium Level 2.0 MG/DL Total Bilirubin 0.6 MG/DL Aspartate Amino Transf 29 U/L (AST/SGOT) Alanine Aminotransferase 24 U/L (ALT/SGPT) Alkaline Phosphatase 101 U/L Total Creatine Kinase 71 U/L Troponin I 0.03 NG/ML B-Type Natriuretic Peptide 589 PG/ML Total Protein 6.6 GM/DL Albumin 3.2 GM/DL [facility] Medical Decision Making Medical Screen Exam Complete: Yes Emergency Medical Condition: Yes Medical Record Reviewed: Yes Interpretation(s) EKG reveals sinus tachycardia with a heart rate of 128. Nonspecific T-wave changes. Q wave noted in lead 3. Laboratory Tests Test 01/02/17 05:05 White Blood Count 11.8 TH/MM3 Red Blood Count 2.85 MIL/MM3 Hemoglobin 8.5 GM/DL Hematocrit 25.9 % Mean Corpuscular Volume 90.6 FL Mean Corpuscular Hemoglobin 29.6 PG Mean Corpuscular Hemoglobin 32.7 % Concent Red Cell Distribution Width 17.3 % Platelet Count 365 TH/MM3 Mean Platelet Volume 7.3 FL Neutrophils (%) (Auto) 67.0 % Lymphocytes (%) (Auto) 20.0 % Monocytes (%) (Auto) 6.7 % Eosinophils (%) (Auto) 5.2 % Basophils (%) (Auto) 1.1 % Neutrophils # (Auto) 7.9 TH/MM3 Lymphocytes # (Auto) 2.4 TH/MM3 Monocytes # (Auto) 0.8 TH/MM3 Eosinophils # (Auto) 0.6 TH/MM3 Basophils # (Auto) 0.1 TH/MM3 CBC Comment DIFF FINAL Differential Comment Prothrombin Time 10.1 SEC Prothromb Time International 0.9 RATIO Ratio Activated Partial 23.4 SEC Thromboplast Time Sodium Level 141 MEQ/L Potassium Level 4.1 MEQ/L Chloride Level 109 MEQ/L Carbon Dioxide Level 20.8 MEQ/L Anion Gap 11 MEQ/L Blood Urea Nitrogen 22 MG/DL Creatinine 1.10 MG/DL Estimat Glomerular Filtration 47 ML/MIN Rate Random Glucose 273 MG/DL Calcium Level 8.4 MG/DL Magnesium Level 2.0 MG/DL Total Bilirubin 0.6 MG/DL Aspartate Amino Transf 29 U/L (AST/SGOT) Alanine Aminotransferase 24 U/L (ALT/SGPT) Alkaline Phosphatase 101 U/L Total Creatine Kinase 71 U/L Troponin I 0.03 NG/ML B-Type Natriuretic Peptide 589 PG/ML Total Protein 6.6 GM/DL Albumin 3.2 GM/DL Last Impressions Chest X-Ray 01/02/17 0506 Signed Impressions: Service Date/Time: Monday, January 02, 2017 05:17 - CONCLUSION: Development of Bibasilar air space disease. Treatment and followup to resolution. Paul Nascimento MD Differential Diagnosis Differential diagnosis includes pulmonary edema, congestive heart failure, cardiomyopathy, ACS, pneumonia, sepsis, pulmonary embolism, COPD, bronchitis. Narrative Course IV was established, labs were drawn and sent, and the patient was placed on cardiac telemetry monitoring and continuous pulse oximetry monitoring. EKG was ordered and interpreted. Chest x-ray was obtained. The patient was administered Lasix 40 mg intravenously. Chest x-rays consistent with CHF. BNP is elevated at 589. Patient received Lasix and was able to be weaned off of nonrebreather to 4 L O2 via nasal cannula with an O2 sat of 94%. Troponin is negative. The patient's symptoms did improve. However, patient was still hypoxic, therefore, will require admission for diuresis until she is off of oxygen. The patient has [employer], therefore, [facility] Hospitalist were paged for admission. Physician Communication Physician Communication [facility] Hospitalist were paged for admission. I discussed the patient with Dr. Sue who agrees with admission. Diagnosis Primary Impression: CHF (congestive heart failure) Qualified Code: I50.9 - Acute on chronic congestive heart failure, unspecified congestive heart failure type Additional Impression: Hypoxia Admitting Information Admitting Physician Requests: Admit Condition: Stable Sarath Reed MD Jan 02, 2017 05:19
[2017-01-02 05:20] LABS: AUTOMATED NEUTROPHIL # 7.9 TH/MM3 (1.8-7.7); BASOPHIL # 0.1 TH/MM3 (0-0.2); BASOPHIL % 1.1 % (0.0-2.0); EOSINOPHIL # 0.6 TH/MM3 (0-0.4); EOSINOPHIL % 5.2 % (0.0-4.0); HEMATOCRIT 25.9 % (35.0-46.0); HEMO FLAGS DIFF FINAL; LYMPHOCYTE # 2.4 TH/MM3 (1.0-4.8); MEAN CELL VOLUME 90.6 FL (80.0-100.0); MEAN CORPUSCULAR HEMOGLOBIN 29.6 PG (27.0-34.0); MEAN CORPUSCULAR HGB CONC 32.7 % (32.0-36.0); MONO % 6.7 % (0.0-8.0); PLATELET COUNT 365 TH/MM3 (150-450); RED BLOOD COUNT 2.85 MIL/MM3 (4.00-5.30); RED CELL DISTRIBUTION WIDTH 17.3 % (11.6-17.2); WHITE BLOOD COUNT 11.8 TH/MM3 (4.0-11.0)
[2017-01-02 05:31] LABS: APTT (PATIENT) 23.4 SEC (24.3-30.1); INTERNATIONAL NORMALIZED RATIO 0.9 RATIO; PROTHROMBIN TIME - PATIENT 10.1 SEC (9.8-11.6)
[2017-01-02 05:35] LABS: ALT (GPT) 24 U/L (10-53); ANION GAP 11 MEQ/L (5-15); AST (GOT) 29 U/L (15-37); BICARBONATE 20.8 MEQ/L (21.0-32.0); BLOOD UREA NITROGEN 22 MG/DL (7-18); CHLORIDE 109 MEQ/L (98-107); GLOMERULAR FILTRATION RATE 47 ML/MIN (>89); POTASSIUM 4.1 MEQ/L (3.5-5.1); SODIUM (NA) 141 MEQ/L (136-145)
[2017-01-02 05:39] LABS: ALKALINE PHOSPHATASE 101 U/L (45-117); TOTAL BILIRUBIN ADULT 0.6 MG/DL (0.2-1.0)
[2017-01-02] MEDS ORDERED: ESCI20TA PO (05:48)
[2017-01-02] MEDS ORDERED: FURO40TA PO (05:48)
[2017-01-02] MEDS ORDERED: POTA10TA2 PO (05:48)
[2017-01-02 05:53] LABS: CREATINE KINASE 71 U/L (26-192)
[2017-01-02] MEDS ORDERED: ASPIRIN 81 MG CHEW TAB CHEW ONE (06:15)
--- NOTE | 2017-01-02 06:17 | RADRPT ---
EXAM DATE/TIME: 01/02/2017 05:17 [facility] COMPARISON: CHEST SINGLE AP, October 09, 2016, 20:21. INDICATIONS : Shortness of breath. MEDICAL HISTORY : Chronic obstructive pulmonary disease. SURGICAL HISTORY : Mastectomy, right. ENCOUNTER: Initial ACUITY: 1 day PAIN SCORE: 0/10 LOCATION: Bilateral chest FINDINGS: A single view of the chest demonstrates bibasilar airspace disease greater right lower lobe. Heart no rmal in size. Osseous structures are intact. Calcified mediastinal lymph nodes. CONCLUSION: Development of Bibasilar air space disease. Treatment and followup to resolution. Paul Nascimento MD on January 02, 2017 at 6:14 Board Certified Radiologist. This report was verified electronically.
[2017-01-02] MEDS ORDERED: BISACODYL 10 MG SUPP RECTAL PRN (06:30)
[2017-01-02] MEDS ORDERED: DEXTROSE 50% IN WATER 50 ML VIAL(D50) IV PRN (06:30)
[2017-01-02] MEDS ORDERED: SENNOSIDES 8.6 MG TAB PO PRN (06:30)
[2017-01-02] MEDS ORDERED: ACETAMINOPHEN 325 MG TAB PO PRN (06:30)
[2017-01-02] MEDS ORDERED: SODIUM CHLORIDE 0.9% FLUSH 10 ML FLUSH IV FLUSH PRN (06:30)
[2017-01-02] MEDS ORDERED: ACETAMINOPHEN/HYDROcodone 325 MG/5 MG TAB PO PRN (06:30)
[2017-01-02] MEDS ORDERED: GLUCAGON 1 MG/ML VIAL OTHER PRN (06:30)
[2017-01-02] MEDS ORDERED: ACETAMINOPHEN/HYDROcodone 325 MG/10 MG TAB PO PRN (06:30)
[2017-01-02] MEDS ORDERED: LACTULOSE SYRUP 20 GM/30 ML CUP PO PRN (06:30)
[2017-01-02] MEDS ORDERED: MAGNESIUM HYDROXIDE SUSP 30 ML CUP PO PRN (06:30)
[2017-01-02] MEDS: LEVOTHYROXINE SODIUM 25 MCG TAB PO SCH (06:50)
[2017-01-02] MEDS: INSULIN ASPART SUPPLEMENTAL SCALE SQ SCH ×4 (07:53→20:58)
--- NOTE | 2017-01-02 08:26 | HHI.HP ---
Shortness of breath HPI [facility] Physician Merari Hopkins M.D. Admission Diagnosis congestive heart failure, hypoxemia Diagnoses: Chief Complaint: SOB Travel History International Travel<30 Days: No Contact w/Intl Traveler <30 Da: No Traveled to Known Affected Are: No History of Present Illness This is a pleasant 86 y/o Female who came to ER due to Shortness of breath that started one day before coming to ER, The patient was awakened with shortness of breath and mild chest discomfort, described as tightness. The patient notes a history of congestive heart failure with recent admission, however, was recently taken off of her Lasix secondary to cramping. The patient's symptoms are worse when lying supine as well as walking. She notes minimal edema to lower extremities, but significant orthopnea. She denies any history of pulmonary embolism or DVT. The patient's center manager is Dr. Flynn Augustin. The patient denied any diaphoresis, but did complain of mild nausea with one episode of vomiting upon arrival to the emergency department. Symptoms are moderate, worse with exertion and lying supine, with no current alleviating factors. As we know she has Hyperlipidemia, CHF, DM II, Hypoacusis, Hypertension, Depression,Hypothyroidism The patient was seen in her bedroom in the presence of nurse Dante and her Daughter Mrs. Anjali Lynn, the patient woke up at 4 am with Shortness of breath, also productive cough, mild worsening Acute Kidney Injury on chronic kidney failure stage III. Review of Systems Respiratory: COMPLAINS OF: Cough, Sputum production, Shortness of breath Except as stated in HPI: all other systems reviewed are Neg Past Family Social History Past Medical History Hyperlipidemia COPD CHF DM II Hypoacusis Hypertension GERD Depression Hypothyroidism Past Surgical History Hernia Repair Cholecystectomy Cataract Right eye RIGO Right Breast Mastectomy Reported Medications Reported Meds & Active Scripts Active Tramadol (Tramadol HCl) 50 Mg Tab 50 Mg PO Q4H PRN Trazodone (Trazodone HCl) 50 Mg Tab 50 Mg PO HS Lisinopril 5 Mg Tab 5 Mg PO DAILY Aspirin EC (Aspirin) 81 Mg Tabdr 81 Mg PO DAILY Reported Furosemide 40 Mg Tab 40 Mg PO DAILY Escitalopram (Escitalopram Oxalate) 20 Mg Tab 20 Mg PO DAILY Potassium Chloride ER (Potassium Chloride) 10 Meq Tab 10 Meq PO DAILY Simvastatin 5 Mg Tab 5 Mg PO DAILY Metformin (Metformin HCl) 500 Mg Tab 500 Mg PO DAILY With a meal Levothyroxine (Levothyroxine Sodium) 25 Mcg Tab 25 Mcg PO DAILY Allergies: Coded Allergies: Penicillin (Verified Allergy, Unknown, 01/02/17) Active Ordered Medications Current Medications Medications (Trade) Dose Ordered Sig/Eddie Route Start Time Stop Time Status Last Admin (Lasix Inj) 40 mg BID@09,18 IV PUSH 01/02/17 09:00 (D50w (Vial) Inj) 50 ml UNSCH PRN IV 01/02/17 06:30 (Glucagon Inj) 1 mg UNSCH PRN OTHER 01/02/17 06:30 (NS Flush) 2 ml UNSCH PRN IV FLUSH 01/02/17 06:30 (NS Flush) 2 ml BID IV FLUSH 01/02/17 09:00 (Heparin Inj) 5,000 units Q12H SQ 01/02/17 09:00 (Tylenol) 650 mg Q6H PRN PO 01/02/17 06:30 ([place] 5-325 Mg) 1 tab Q4H PRN PO 01/02/17 06:30 ([place] 10-325 Mg) 1 tab Q4H PRN PO 01/02/17 06:30 (Regla-Colace) 1 tab BID PO 01/02/17 09:00 (Milk Of Magnesia Liq) 30 ml Q12H PRN PO 01/02/17 06:30 (Senokot) 17.2 mg Q12H PRN PO 01/02/17 06:30 (Dulcolax Supp) 10 mg DAILY PRN RECTAL 01/02/17 06:30 (Lactulose Liq) 30 ml DAILY PRN PO 01/02/17 06:30 (Ecotrin Ec) 81 mg DAILY PO 01/02/17 09:00 (Lexapro) 20 mg DAILY PO 01/02/17 09:00 (Synthroid) 25 mcg DAILY@0600 PO 01/02/17 06:30 01/02/17 06:50 (Desyrel) 50 mg HS PO 01/02/17 21:00 (Pravachol) 10 mg DAILY PO 01/02/17 09:00 Family History Father with Pulmonary Emboli, Sister with Hypertension and Brothers with DM Social History Lives alone her Daughter states with her at night and Denies any Toxic habits. Physical Exam Vital Signs Vital Signs Date Time Temp Pulse Resp B/P Pulse Ox O2 Delivery O2 Flow Rate FiO2 01/02/17 07:15 79 21 91/53 98 Nasal Cannula 4 01/02/17 07:15 79 21 91/53 98 Nasal Cannula 4 01/02/17 07:15 98 Nasal Cannula 4 01/02/17 06:15 92 22 99/52 93 Nasal Cannula 4 01/02/17 06:00 98 22 104/53 95 Nasal Cannula 4 01/02/17 05:45 104 24 113/51 92 Nasal Cannula 4 01/02/17 05:38 97.8 106 32 119/56 93 Non-Rebreather 15 01/02/17 05:26 100 Nasal Cannula 4.00 01/02/17 05:00 94 15.00 100 01/02/17 05:00 100 Non-Rebreather 15 01/02/17 04:59 131 27 122/69 99 Physical Exam GENERAL: Awake, alert, No acute distress. SKIN: Focused skin assessment warm/dry. HEAD: Atraumatic. Normocephalic. EYES: Pupils equal and round. No scleral icterus. No injection or drainage. ENT: No nasal bleeding or discharge. Mucous membranes pink and moist. NECK: Trachea midline. No JVD. CARDIOVASCULAR: Regular, tachycardic RESPIRATORY: Decreased breath sounds bilateral, no wheezing or crackles. GASTROINTESTINAL: Abdomen soft, non-tender, nondistended. MUSCULOSKELETAL: No obvious deformities. No clubbing. No cyanosis. Mild bilateral lower extremity pitting edema. NEUROLOGICAL: Awake and alert. No obvious cranial nerve deficits. Motor grossly within normal limits. Normal speech. PSYCHIATRIC: Appropriate mood and affect; insight and judgment normal. Laboratory Laboratory Tests Test 01/02/17 05:05 White Blood Count 11.8 Red Blood Count 2.85 Hemoglobin 8.5 Hematocrit 25.9 Mean Corpuscular Volume 90.6 Mean Corpuscular Hemoglobin 29.6 Mean Corpuscular Hemoglobin 32.7 Concent Red Cell Distribution Width 17.3 Platelet Count 365 Mean Platelet Volume 7.3 Neutrophils (%) (Auto) 67.0 Lymphocytes (%) (Auto) 20.0 Monocytes (%) (Auto) 6.7 Eosinophils (%) (Auto) 5.2 Basophils (%) (Auto) 1.1 Neutrophils # (Auto) 7.9 Lymphocytes # (Auto) 2.4 Monocytes # (Auto) 0.8 Eosinophils # (Auto) 0.6 Basophils # (Auto) 0.1 CBC Comment DIFF FINAL Differential Comment Prothrombin Time 10.1 Prothromb Time International 0.9 Ratio Activated Partial 23.4 Thromboplast Time Sodium Level 141 Potassium Level 4.1 Chloride Level 109 Carbon Dioxide Level 20.8 Anion Gap 11 Blood Urea Nitrogen 22 Creatinine 1.10 Estimat Glomerular Filtration 47 Rate Random Glucose 273 Calcium Level 8.4 Magnesium Level 2.0 Total Bilirubin 0.6 Aspartate Amino Transf 29 (AST/SGOT) Alanine Aminotransferase 24 (ALT/SGPT) Alkaline Phosphatase 101 Total Creatine Kinase 71 Troponin I 0.03 B-Type Natriuretic Peptide 589 Total Protein 6.6 Albumin 3.2 Result Diagram: 01/02/17 0505 01/02/17 0505 Imaging Last Impressions Chest X-Ray 01/02/17 0506 Signed Impressions: Service Date/Time: Monday, January 02, 2017 05:17 - CONCLUSION: Development of Bibasilar air space disease. Treatment and followup to resolution. Paul Nascimento MD Chest CT 01/02/17 0000 Signed Impressions: Service Date/Time: Monday, January 02, 2017 09:03 - CONCLUSION: 1. Bibasilar pulmonary infiltrates, right greater than left. 2. Small to moderate right pleural effusion. Small left pleural effusion. Marcos Kee MD Assessment and Plan Assessment and Plan 1. Respiratory Insufficiency multifactorial the patient has history of CHF, Oxygen, Lasix IV, CXR and CT scan of the chest positive for basilar infiltrates,was seen by customer energy specialist and recommended to give some IV fluids, not clear for CHF as the reason for this actual symptoms, her BNP was 589, troponin negative, recommended to treat her Pneumonia 2. Pneumonia has bilateral pulmonary infiltrates, will give Bronchodilator, Mucolytic and incentive spirometry, given Levaquin taken blood cultures and sputum culture, Legionella antigen and Pneumococcal antigen. 3. Hyperlipidemia to continue Home medicines 4. DM II continue sliding scale last Hemoglobin A1C on September this year was 4.7 5. Hypoacusis by history 6. Hypertension at this time hypotensive discontinued Lasix by customer energy specialist. Lisinopril on hold 7. GERD on Carafate. 8. Depression to continue Home medicines 9. Hypothyroidism continue Hormonal replacement 10. Acute kidney Injury on chronic kidney disease III asked by Cardiology to start some IV fluids will given gentle hydration and follow. DVT prophylaxis with Heparin Discussed with patient, Daughter Mrs. Anjali Lynn, all questions answered to the best of my abilities. Code Status Full code. Physician Certification 2 Midnight Certification Type: Admission for Inpatient Services Order for Inpatient Services The services are ordered in accordance with Medicare regulations or non- Medicare payer requirements, as applicable. In the case of services not specified as inpatient-only, they are appropriately provided as inpatient services in accordance with the 2-midnight benchmark. Estimated LOS (days): 3 days is the estimated time the patient will need to remain in the hospital, assuming treatment plan goals are met and no additional complications. Post-Hospital Plan: Not yet determined Antonio Griffin MD Jan 02, 2017 08:26
[2017-01-02] MEDS: HEPARIN SODIUM - SQ 10,000 UNITS/ML VIAL SQ SCH ×2 (09:00→20:58)
[2017-01-02] MEDS ORDERED: FUROSEMIDE 40 MG/4 ML VIAL IV PUSH SCH (09:00)
--- NOTE | 2017-01-02 09:22 | RADRPT ---
EXAM DATE/TIME: 01/02/2017 09:03 [facility] COMPARISON: CHEST SINGLE AP, January 02, 2017, 5:17. INDICATIONS : Shortness of breath. RADIATION DOSE: 8.45 CTDIvol (mGy) MEDICAL HISTORY : Carcinoma, breast. Chronic obstructive pulmonary disease. SURGICAL HISTORY : Cholecystectomy. ENCOUNTER: Initial ACUITY: 1 day PAIN SCALE: 0/10 LOCATION: Bilateral chest TECHNIQUE: Volumetric scanning of the chest was performed. Using automated exposure control and adjustment of t he mA and/or kV according to patient size, radiation dose was kept as low as reasonably achievable to obtain optimal diagnostic quality images. DICOM format image data is available electronically for r eview and comparison. FINDINGS: LUNGS: Pulmonary infiltrate probably in the lung bases bilaterally, right greater than left. The upper lung garcia are grossly clear. PLEURAE: There is a small to moderate right pleural effusion. There is a small left pleural effusion. MEDIASTINUM: The heart and great vessels demonstrate no acute abnormality. There is no mediastinal or hilar lymph adenopathy. Atherosclerotic changes of the aorta. Coronary calcifications. AXILLAE: Within normal limits. No lymphadenopathy. MUSCULOSKELETAL: Bony degenerative changes. MISCELLANEOUS: The visualized upper abdominal organs demonstrate no acute abnormality. Single right-sided breast imp lant. CONCLUSION: 1. Bibasilar pulmonary infiltrates, right greater than left. 2. Small to moderate right pleural effusion. Small left pleural effusion. Marcos Kee MD on January 02, 2017 at 9:17 Board Certified Radiologist. This report was verified electronically.
[2017-01-02] MEDS: DOCUSATE SODIUM 50 MG/SENNA 8.6 MG TAB PO SCH ×2 (10:44→20:57)
[2017-01-02] MEDS: PRAVASTATIN SOD 10 MG TAB PO SCH (10:44)
[2017-01-02] MEDS: ESCITALOPRAM OXALATE 20 MG TAB PO SCH (10:44)
[2017-01-02] MEDS: ASPIRIN EC 81 MG TABEC PO SCH (10:44)
[2017-01-02] MEDS: SODIUM CHLORIDE 0.9% FLUSH 10 ML FLUSH IV FLUSH SCH ×2 (10:45→20:57)
--- NOTE | 2017-01-02 12:03 | EKG ---
Date Performed: 01/02/2017 Time Performed: 05:06:53 PTAGE: 86 years EKG: SINUS TACHYCARDIA LOW QRS VOLTAGE IN PRECORDIAL LEADS POSSIBLE ANTERIOR MYOCARDIAL INFARCTI ON NONSPECIFIC ST-T CHANGES Compared to previous tracing, the rate is faster. ABNORMAL ECG PREVIOUS TRACING : 10/07/2016 09.00 DOCTOR: Trevor Albright Interpretating Date/Time 01/02/2017 12:03:20
--- NOTE | 2017-01-02 12:15 | MB ---
cc: CELIA DUDLEY MD DATE OF CONSULTATION: REASON FOR CONSULTATION: Shortness of breath. HISTORY OF PRESENT ILLNESS The patient is a pleasant 86 year-old woman who is seeing my partner Dr. Augustin for a history of normal ejection fraction congestive heart failure and who presented with cough, shortness of breath and low blood pressures. She has held her Lasix due to these very low blood pressures and also severe leg cramps. Upon admission she was given IV Lasix but found to have a pulmonary infiltrates with small pleural effusions her blood pressures have also been quite low. She says she is breathing much better than on admission, she denies any current shortness of breath, chest pain, lightheadedness, dizziness. PAST MEDICAL HISTORY Normal ejection fraction. Congestive heart failure COPD Diabetes Hypertension. CURRENT MEDICATIONS 1. Trazodone. 2. Lasix 40 mg IV b.i.d. 3. Aspirin 81 milligrams daily. ALLERGIES PENICILLIN PHYSICAL EXAMINATION VITAL SIGNS: Afebrile, pulse 79, respiratory 90 teen BP 86/51 satting 100 on 3 liters. IN GENERAL: This is a pleasant elderly woman in no distress. NECK: No JVD. LUNGS: Clear auscultation bilaterally. CARDIOVASCULAR SYSTEM: Regular rate and rhythm. No murmurs appreciated. ABDOMEN: Benign. EXTREMITIES: No edema. LABORATORY DATA White count 11.8, hematocrit 25.9, platelets 365. Sodium 141, potassium [id number], bicarb 20.8, BUN 22, creatinine 1.1. BNP is 789, troponin is 0.03. CT chest showed bibasilar infiltrates. EKG showed sinus tachycardia at [address] changes. IMPRESSION: 1. Shortness of breath. This patient has shortness of breath, mildly elevated white count and a cough productive of sputum all of which seemed consistent with the diagnosis of pneumonia. Her moderately elevated B-type natriuretic peptide is not particularly impressive and while certainly possible she had some concomitant congestive heart failure. I do not believe that is the primary diagnosis. Furthermore she is quite hypotensive and the last blood pressure was actually in the 70s systolic. Thus I will discontinue her IV Lasix, advise oral hydration and IV if necessary. Her pneumonia will be managed by her primary medical team. Further recommendations based on her clinical course. Thank you again for the opportunity to participate in this patients care. MD Sumanth Varner /9:48 AM /12:08 PM
[2017-01-02] MEDS ORDERED: LEVOFLOXACIN 750 MG PREMIX INJ 150 ML IV SCH (16:00)
[2017-01-02] MEDS: RESP: ALBUTEROL 2.5 MG/IPRATROPIUM 0.5 MG NEB (SCH) NEB ×3 (17:53→23:16)
[2017-01-02] MEDS: SODIUM CHLOR 0.9% 1000 ML INJ 1,000 ML IV SCH (18:01)
[2017-01-02] MEDS: guaiFENesin E.R. 600 MG TAB PO SCH (20:56)
[2017-01-02] MEDS: traZODone HCL 50 MG TAB PO SCH (23:19)
[2017-01-03] VITALS (29 sets, daily range): BP systolic 84–112; BP diastolic 46–63; PULSE 70–116; RESP 18–20; TEMP 98–98.6; O2SAT 95–99
[2017-01-03] MEDS: RESP: ALBUTEROL 2.5 MG/IPRATROPIUM 0.5 MG NEB (SCH) NEB ×6 (03:16→23:29)
[2017-01-03] MEDS: SODIUM CHLOR 0.9% 1000 ML INJ 1,000 ML IV SCH (03:55)
[2017-01-03 05:02] LABS: AUTOMATED NEUTROPHIL # 3.6 TH/MM3 (1.8-7.7); BASOPHIL % 0.6 % (0.0-2.0); EOSINOPHIL # 0.1 TH/MM3 (0-0.4); EOSINOPHIL % 1.5 % (0.0-4.0); HEMATOCRIT 21.4 % (35.0-46.0); HEMO FLAGS DIFF FINAL; LYMPH % 15.1 % (9.0-44.0); LYMPHOCYTE # 0.7 TH/MM3 (1.0-4.8); MEAN CELL VOLUME 88.8 FL (80.0-100.0); MEAN CORPUSCULAR HEMOGLOBIN 30.2 PG (27.0-34.0); MEAN CORPUSCULAR HGB CONC 34.1 % (32.0-36.0); MONO % 8.7 % (0.0-8.0); NEUT % 74.1 % (16.0-70.0); PLATELET COUNT 179 TH/MM3 (150-450); RED BLOOD COUNT 2.42 MIL/MM3 (4.00-5.30); RED CELL DISTRIBUTION WIDTH 16.8 % (11.6-17.2); WHITE BLOOD COUNT 4.9 TH/MM3 (4.0-11.0)
[2017-01-03 05:40] LABS: ALKALINE PHOSPHATASE 74 U/L (45-117); ALT (GPT) 20 U/L (10-53); ANION GAP 10 MEQ/L (5-15); AST (GOT) 25 U/L (15-37); BLOOD UREA NITROGEN 25 MG/DL (7-18); CHLORIDE 109 MEQ/L (98-107); GLOMERULAR FILTRATION RATE 48 ML/MIN (>89); POTASSIUM 3.7 MEQ/L (3.5-5.1); SODIUM (NA) 141 MEQ/L (136-145); TOTAL BILIRUBIN ADULT 0.6 MG/DL (0.2-1.0)
[2017-01-03] MEDS: LEVOTHYROXINE SODIUM 25 MCG TAB PO SCH (05:53)
[2017-01-03] MEDS: INSULIN ASPART SUPPLEMENTAL SCALE SQ SCH ×4 (06:29→20:24)
[2017-01-03] MEDS: PRAVASTATIN SOD 10 MG TAB PO SCH (08:40)
[2017-01-03] MEDS: SODIUM CHLORIDE 0.9% FLUSH 10 ML FLUSH IV FLUSH SCH ×2 (08:41→20:18)
[2017-01-03] MEDS: guaiFENesin E.R. 600 MG TAB PO SCH ×2 (08:41→20:18)
[2017-01-03] MEDS: DOCUSATE SODIUM 50 MG/SENNA 8.6 MG TAB PO SCH ×2 (08:41→20:18)
[2017-01-03] MEDS: ASPIRIN EC 81 MG TABEC PO SCH (08:41)
[2017-01-03] MEDS: ESCITALOPRAM OXALATE 20 MG TAB PO SCH (08:41)
[2017-01-03] MEDS: HEPARIN SODIUM - SQ 10,000 UNITS/ML VIAL SQ SCH ×2 (08:42→20:18)
--- NOTE | 2017-01-03 10:31 | PD.CARD.PN ---
Subjective Subjective Remarks Pt feeling much better Objective Medications Administered Medications Medications (Trade) Dose Ordered Sig/Eddie Route PRN Reason Start Time Stop Time Status Last Admin Dose Admin Sodium Chloride (NS Flush) 2 ml BID IV FLUSH 01/02/17 09:00 01/03/17 08:41 Heparin Sodium (Porcine) (Heparin Inj) 5,000 units Q12H SQ 01/02/17 09:00 01/03/17 08:42 Senna/Docusate Sodium (Regla-Colace) 1 tab BID PO 01/02/17 09:00 01/03/17 08:41 Aspirin (Ecotrin Ec) 81 mg DAILY PO 01/02/17 09:00 01/03/17 08:41 Escitalopram Oxalate (Lexapro) 20 mg DAILY PO 01/02/17 09:00 01/03/17 08:41 Levothyroxine Sodium (Synthroid) 25 mcg DAILY@0600 PO 01/02/17 06:30 01/03/17 05:53 Trazodone HCl (Desyrel) 50 mg HS PO 01/02/17 21:00 01/02/17 23:19 Pravastatin Sodium 10 mg 10 mg DAILY PO 01/02/17 09:00 01/03/17 08:40 Levofloxacin/ Dextrose (Levaquin 750 Mg Premix Inj) 150 ml @ 100 mls/hr Q48H IV 01/02/17 16:00 01/02/17 18:00 Guaifenesin 600 mg 600 mg BID PO 01/02/17 21:00 01/03/17 08:41 Sodium Chloride (NS 1000 ml Inj) 1,000 ml @ 84 mls/hr [id number] IV 01/02/17 16:00 01/03/17 03:55 Vital Signs / I&O Vital Signs Date Time Temp Pulse Resp B/P Pulse Ox O2 Delivery O2 Flow Rate FiO2 01/03/17 07:59 96 Nasal Cannula 3.00 01/03/17 07:01 92 01/03/17 06:02 70 01/03/17 05:07 98 01/03/17 04:37 96 01/03/17 03:34 103 01/03/17 03:18 98.3 100 102/58 99 01/03/17 02:00 92 01/03/17 01:00 98 01/03/17 00:24 101 01/02/17 23:16 99 Nasal Cannula 3.00 01/02/17 23:00 99.0 84 14 92/50 98 01/02/17 23:00 82 01/02/17 22:00 94 01/02/17 21:00 82 01/02/17 20:00 80 01/02/17 19:46 98 Nasal Cannula 3.00 01/02/17 19:00 98.5 84 12 100/54 100 01/02/17 19:00 83 01/02/17 18:01 84 01/02/17 17:01 93 01/02/17 16:01 98.1 84 18 98/54 96 01/02/17 16:00 76 01/02/17 15:00 76 01/02/17 14:00 76 01/02/17 13:00 88 01/02/17 12:00 78 01/02/17 11:01 98.3 79 18 83/50 95 01/02/17 11:00 80 I/O 01/02/17 01/02/17 01/02/17 01/03/17 01/03/17 01/03/17 07:00 15:00 23:00 07:00 15:00 23:00 Intake Total 720 ml 720 ml Output Total 450 ml 450 ml Balance 270 ml 270 ml Intake Oral 720 ml 720 ml Output Urine Total 450 ml 450 ml # Voids 3 # Bowel Movements 1 Physical Exam GENERAL: This is a well-nourished, well-developed patient, in no apparent distress. CARDIOVASCULAR: Regular rate and rhythm without murmurs, gallops, or rubs. RESPIRATORY: Clear to auscultation. Breath sounds equal bilaterally. No wheezes , rales, or rhonchi. GASTROINTESTINAL: Abdomen soft, non-tender, nondistended. Normal active bowel sounds MUSCULOSKELETAL: Extremities without clubbing, cyanosis, or edema. NEURO: Alert & Oriented x4 to person, place, time, situation. Moves all ext x4 Laboratory Laboratory Tests Test 01/03/17 04:30 White Blood Count 4.9 TH/MM3 Red Blood Count 2.42 MIL/MM3 Hemoglobin 7.3 GM/DL Hematocrit 21.4 % Mean Corpuscular Volume 88.8 FL Mean Corpuscular Hemoglobin 30.2 PG Mean Corpuscular Hemoglobin 34.1 % Concent Red Cell Distribution Width 16.8 % Platelet Count 179 TH/MM3 Mean Platelet Volume 7.2 FL Neutrophils (%) (Auto) 74.1 % Lymphocytes (%) (Auto) 15.1 % Monocytes (%) (Auto) 8.7 % Eosinophils (%) (Auto) 1.5 % Basophils (%) (Auto) 0.6 % Neutrophils # (Auto) 3.6 TH/MM3 Lymphocytes # (Auto) 0.7 TH/MM3 Monocytes # (Auto) 0.4 TH/MM3 Eosinophils # (Auto) 0.1 TH/MM3 Basophils # (Auto) 0.0 TH/MM3 CBC Comment DIFF FINAL Differential Comment Sodium Level 141 MEQ/L Potassium Level 3.7 MEQ/L Chloride Level 109 MEQ/L Carbon Dioxide Level 22.0 MEQ/L Anion Gap 10 MEQ/L Blood Urea Nitrogen 25 MG/DL Creatinine 1.08 MG/DL Estimat Glomerular Filtration 48 ML/MIN Rate Random Glucose 119 MG/DL Calcium Level 7.8 MG/DL Total Bilirubin 0.6 MG/DL Aspartate Amino Transf 25 U/L (AST/SGOT) Alanine Aminotransferase 20 U/L (ALT/SGPT) Alkaline Phosphatase 74 U/L Total Protein 5.7 GM/DL Albumin 2.7 GM/DL Imaging Last Impressions Chest X-Ray 01/02/17 0506 Signed Impressions: Service Date/Time: Monday, January 02, 2017 05:17 - CONCLUSION: Development of Bibasilar air space disease. Treatment and followup to resolution. Paul Nascimento MD Chest CT 01/02/17 0000 Signed Impressions: Service Date/Time: Monday, January 02, 2017 09:03 - CONCLUSION: 1. Bibasilar pulmonary infiltrates, right greater than left. 2. Small to moderate right pleural effusion. Small left pleural effusion. Marcos Kee MD Assessment and Plan Problem List: (1) PNA (pneumonia) Assessment and Plan: on abx, mgt per medical team (2) CHF (congestive heart failure) Assessment and Plan: appeared dry on admission, lasix stopped and gentle hydration given Assessment and Plan cardiac issues are stable, will sign off and be available as needed, please call with questions. Problem Qualifiers (1) CHF (congestive heart failure): Qualified Code: I50.9 - Acute on chronic congestive heart failure, unspecified congestive heart failure type Mack William MD Jan 03, 2017 10:31
--- NOTE | 2017-01-03 10:54 | HHI.PR ---
Subjective Remarks This is a pleasant 86 y/o Female who came to ER due to Shortness of breath that started one day before coming to ER, The patient was awakened with shortness of breath and mild chest discomfort, described as tightness. The patient notes a history of congestive heart failure with recent admission, however, was recently taken off of her Lasix secondary to cramping. The patient's symptoms are worse when lying supine as well as walking. She notes minimal edema to lower extremities, but significant orthopnea. She denies any history of pulmonary embolism or DVT. The patient's assurance manager insurance is Dr. Flynn Augustin. The patient denied any diaphoresis, but did complain of mild nausea with one episode of vomiting upon arrival to the emergency department. Symptoms are moderate, worse with exertion and lying supine, with no current alleviating factors. As we know she has Hyperlipidemia, CHF, DM II, Hypoacusis, Hypertension, Depression,Hypothyroidism The patient was seen in her bedroom in the presence of nurse Naomie Dante and her Daughter Mrs. Anjali Lynn, the patient woke up at 4 am with Shortness of breath, also productive cough, mild worsening Acute Kidney Injury on chronic kidney failure stage III. 01/03: Seen in her bedroom in the presence of her Daughter no new issues, no nausea, vomit or diarrhea, continue antibiotics, plan for discharge in am tomorrow after dose of Levaquin given and will continue as outpatient. no complaint. Objective Vital Signs Date Time Temp Pulse Resp B/P Pulse Ox O2 Delivery O2 Flow Rate FiO2 01/03/17 10:01 116 01/03/17 09:00 98 01/03/17 08:45 98.2 94 18 84/55 95 01/03/17 08:00 94 01/03/17 07:59 96 Nasal Cannula 3.00 01/03/17 07:01 92 01/03/17 06:02 70 01/03/17 05:07 98 01/03/17 04:37 96 01/03/17 03:34 103 01/03/17 03:18 98.3 100 102/58 99 01/03/17 02:00 92 01/03/17 01:00 98 01/03/17 00:24 101 01/02/17 23:16 99 Nasal Cannula 3.00 01/02/17 23:00 99.0 84 14 92/50 98 01/02/17 23:00 82 01/02/17 22:00 94 01/02/17 21:00 82 01/02/17 20:00 80 01/02/17 19:46 98 Nasal Cannula 3.00 01/02/17 19:00 98.5 84 12 100/54 100 01/02/17 19:00 83 01/02/17 18:01 84 01/02/17 17:01 93 01/02/17 16:01 98.1 84 18 98/54 96 01/02/17 16:00 76 01/02/17 15:00 76 01/02/17 14:00 76 01/02/17 13:00 88 01/02/17 12:00 78 01/02/17 11:01 98.3 79 18 83/50 95 01/02/17 11:00 80 I/O 01/02/17 01/02/17 01/02/17 01/03/17 01/03/17 01/03/17 07:00 15:00 23:00 07:00 15:00 23:00 Intake Total 720 ml 720 ml Output Total 450 ml 450 ml Balance 270 ml 270 ml Intake Oral 720 ml 720 ml Output Urine Total 450 ml 450 ml # Voids 3 # Bowel Movements 1 Result Diagram: 01/03/17 0430 01/03/17 0430 Imaging Last Impressions Chest X-Ray 01/02/17 0506 Signed Impressions: Service Date/Time: Monday, January 02, 2017 05:17 - CONCLUSION: Development of Bibasilar air space disease. Treatment and followup to resolution. Paul Nascimento MD Chest CT 01/02/17 0000 Signed Impressions: Service Date/Time: Monday, January 02, 2017 09:03 - CONCLUSION: 1. Bibasilar pulmonary infiltrates, right greater than left. 2. Small to moderate right pleural effusion. Small left pleural effusion. Marcos Kee MD Procedures None Other Results Laboratory Tests Test 01/02/17 01/03/17 05:05 04:30 Prothrombin Time 10.1 SEC Prothromb Time International 0.9 RATIO Ratio Activated Partial 23.4 SEC Thromboplast Time Magnesium Level 2.0 MG/DL Total Creatine Kinase 71 U/L Troponin I 0.03 NG/ML B-Type Natriuretic Peptide 589 PG/ML White Blood Count 4.9 TH/MM3 Red Blood Count 2.42 MIL/MM3 Hemoglobin 7.3 GM/DL Hematocrit 21.4 % Mean Corpuscular Volume 88.8 FL Mean Corpuscular Hemoglobin 30.2 PG Mean Corpuscular Hemoglobin 34.1 % Concent Red Cell Distribution Width 16.8 % Platelet Count 179 TH/MM3 Mean Platelet Volume 7.2 FL Neutrophils (%) (Auto) 74.1 % Lymphocytes (%) (Auto) 15.1 % Monocytes (%) (Auto) 8.7 % Eosinophils (%) (Auto) 1.5 % Basophils (%) (Auto) 0.6 % Neutrophils # (Auto) 3.6 TH/MM3 Lymphocytes # (Auto) 0.7 TH/MM3 Monocytes # (Auto) 0.4 TH/MM3 Eosinophils # (Auto) 0.1 TH/MM3 Basophils # (Auto) 0.0 TH/MM3 CBC Comment DIFF FINAL Differential Comment Sodium Level 141 MEQ/L Potassium Level 3.7 MEQ/L Chloride Level 109 MEQ/L Carbon Dioxide Level 22.0 MEQ/L Anion Gap 10 MEQ/L Blood Urea Nitrogen 25 MG/DL Creatinine 1.08 MG/DL Estimat Glomerular Filtration 48 ML/MIN Rate Random Glucose 119 MG/DL Calcium Level 7.8 MG/DL Total Bilirubin 0.6 MG/DL Aspartate Amino Transf 25 U/L (AST/SGOT) Alanine Aminotransferase 20 U/L (ALT/SGPT) Alkaline Phosphatase 74 U/L Total Protein 5.7 GM/DL Albumin 2.7 GM/DL Objective Remarks GENERAL: Awake, alert, No acute distress. SKIN: Focused skin assessment warm/dry. HEAD: Atraumatic. Normocephalic. EYES: Pupils equal and round. No scleral icterus. No injection or drainage. ENT: No nasal bleeding or discharge. Mucous membranes pink and moist. NECK: Trachea midline. No JVD. CARDIOVASCULAR: Regular, tachycardic RESPIRATORY: Decreased breath sounds bilateral, no wheezing or crackles. GASTROINTESTINAL: Abdomen soft, non-tender, nondistended. MUSCULOSKELETAL: No obvious deformities. No clubbing. No cyanosis. Mild bilateral lower extremity pitting edema. NEUROLOGICAL: Awake and alert. No obvious cranial nerve deficits. Motor grossly within normal limits. Normal speech. PSYCHIATRIC: Appropriate mood and affect; insight and judgment normal. Medications and IVs Current Medications Medications (Trade) Dose Ordered Sig/Eddie Route Start Time Stop Time Status Last Admin (D50w (Vial) Inj) 50 ml UNSCH PRN IV 01/02/17 06:30 (Glucagon Inj) 1 mg UNSCH PRN OTHER 01/02/17 06:30 (NS Flush) 2 ml UNSCH PRN IV FLUSH 01/02/17 06:30 (NS Flush) 2 ml BID IV FLUSH 01/02/17 09:00 01/03/17 08:41 (Heparin Inj) 5,000 units Q12H SQ 01/02/17 09:00 01/03/17 08:42 (Tylenol) 650 mg Q6H PRN PO 01/02/17 06:30 ([place] 5-325 Mg) 1 tab Q4H PRN PO 01/02/17 06:30 ([place] 10-325 Mg) 1 tab Q4H PRN PO 01/02/17 06:30 (Regla-Colace) 1 tab BID PO 01/02/17 09:00 01/03/17 08:41 (Milk Of Magnesia Liq) 30 ml Q12H PRN PO 01/02/17 06:30 (Senokot) 17.2 mg Q12H PRN PO 01/02/17 06:30 (Dulcolax Supp) 10 mg DAILY PRN RECTAL 01/02/17 06:30 (Lactulose Liq) 30 ml DAILY PRN PO 01/02/17 06:30 (Ecotrin Ec) 81 mg DAILY PO 01/02/17 09:00 01/03/17 08:41 (Lexapro) 20 mg DAILY PO 01/02/17 09:00 01/03/17 08:41 (Synthroid) 25 mcg DAILY@0600 PO 01/02/17 06:30 01/03/17 05:53 (Desyrel) 50 mg HS PO 01/02/17 21:00 01/02/17 23:19 Pravastatin Sodium 10 mg 10 mg DAILY PO 01/02/17 09:00 01/03/17 08:40 (Levaquin 750 Mg Premix Inj) 150 ml @ 100 mls/hr Q48H IV 01/02/17 16:00 01/02/17 18:00 Guaifenesin 600 mg 600 mg BID PO 01/02/17 21:00 01/03/17 08:41 (NS 1000 ml Inj) 1,000 ml @ 84 mls/hr [id number] IV 01/02/17 16:00 01/03/17 03:55 A/P Assessment and Plan 1. Respiratory Insufficiency multifactorial the patient has history of CHF, Oxygen, Lasix IV, CXR and CT scan of the chest positive for basilar infiltrates,was seen by renal medicine specialist and recommended to give some IV fluids, not clear for CHF as the reason for this actual symptoms, her BNP was 589, troponin negative, recommended to treat her Pneumonia continue Levaquin and respiratory therapy as needed, will try to discharge in am tomorrow. 2. Pneumonia has bilateral pulmonary infiltrates, will give Bronchodilator, Mucolytic and incentive spirometry, given Levaquin taken blood cultures and sputum culture, Legionella antigen and Pneumococcal antigen. 3. Hyperlipidemia to continue Home medicines 4. DM II continue sliding scale last Hemoglobin A1C on September this year was 4.7 5. Hypoacusis by history 6. Hypertension at this time hypotensive discontinued Lasix by renal medicine specialist. Lisinopril on hold 7. GERD on Carafate. 8. Depression to continue Home medicines 9. Hypothyroidism continue Hormonal replacement 10. Acute kidney Injury on chronic kidney disease III asked by Cardiology to start some IV fluids will given gentle hydration and follow. she is eating and drinking now will decrease IV fluids to 60 ml per hour DVT prophylaxis with Heparin Discussed with patient, Daughter Mrs. Anjali Lynn, all questions answered to the best of my abilities. Discussed with nurse Mr. Dante Aguayo. Code Status Full code. Discharge Planning Expected by tomorrow. Antonio rGiffin MD Jan 03, 2017 10:54
[2017-01-03] MEDS: traZODone HCL 50 MG TAB PO SCH (20:17)
[2017-01-04] VITALS (27 sets, daily range): BP systolic 93–118; BP diastolic 53–71; PULSE 81–114; RESP 18–20; TEMP 98.1–98.4; O2SAT 92–100
[2017-01-04] MEDS: RESP: ALBUTEROL 2.5 MG/IPRATROPIUM 0.5 MG NEB (SCH) NEB ×5 (03:22→20:31)
[2017-01-04] MEDS: LEVOTHYROXINE SODIUM 25 MCG TAB PO SCH (05:21)
[2017-01-04] MEDS: INSULIN ASPART SUPPLEMENTAL SCALE SQ SCH ×4 (06:05→21:00)
[2017-01-04 07:32] LABS: BICARBONATE 21.3 MEQ/L (21.0-32.0); MAGNESIUM 2.2 MG/DL (1.5-2.5); POTASSIUM 3.9 MEQ/L (3.5-5.1)
[2017-01-04] MEDS: ASPIRIN EC 81 MG TABEC PO SCH (08:58)
[2017-01-04] MEDS: ESCITALOPRAM OXALATE 20 MG TAB PO SCH (08:58)
[2017-01-04] MEDS: guaiFENesin E.R. 600 MG TAB PO SCH ×2 (08:58→21:37)
[2017-01-04] MEDS: PRAVASTATIN SOD 10 MG TAB PO SCH (08:58)
[2017-01-04] MEDS: HEPARIN SODIUM - SQ 10,000 UNITS/ML VIAL SQ SCH ×2 (08:58→21:38)
[2017-01-04] MEDS: DOCUSATE SODIUM 50 MG/SENNA 8.6 MG TAB PO SCH ×2 (08:58→21:00)
[2017-01-04] MEDS: SODIUM CHLORIDE 0.9% FLUSH 10 ML FLUSH IV FLUSH SCH ×2 (08:59→21:37)
[2017-01-04] MEDS ORDERED: LEVA750T9 PO (12:30)
[2017-01-04] MEDS ORDERED: FURO20TA PO (12:30)
--- NOTE | 2017-01-04 14:03 | HHI.PR ---
Subjective Remarks This is a pleasant 86 y/o Female who came to ER due to Shortness of breath that started one day before coming to ER, The patient was awakened with shortness of breath and mild chest discomfort, described as tightness. The patient notes a history of congestive heart failure with recent admission, however, was recently taken off of her Lasix secondary to cramping. The patient's symptoms are worse when lying supine as well as walking. She notes minimal edema to lower extremities, but significant orthopnea. She denies any history of pulmonary embolism or DVT. The patient's apartment leasing agent is Dr. Flynn Augsutin. The patient denied any diaphoresis, but did complain of mild nausea with one episode of vomiting upon arrival to the emergency department. Symptoms are moderate, worse with exertion and lying supine, with no current alleviating factors. As we know she has Hyperlipidemia, CHF, DM II, Hypoacusis, Hypertension, Depression,Hypothyroidism The patient was seen in her bedroom in the presence of nurse Naomie Dante and her Daughter Mrs. Anjali Lynn, the patient woke up at 4 am with Shortness of breath, also productive cough, mild worsening Acute Kidney Injury on chronic kidney failure stage III. 01/03: Seen in her bedroom in the presence of her Daughter no new issues, , continue antibiotics, plan for discharge in am tomorrow after dose of Levaquin given and will continue as outpatient. no complaint. 01/04: Stable in her bedroom, seen by trading specialist no further recommendations, no nausea, vomit or diarrhea, health insurance specialist discontinued Lasix and signed off the case, no further recommendations the patient is improving her condition, will take a new CXR and follow if improving will discharge Home later continue present care at this time. Objective Vital Signs Date Time Temp Pulse Resp B/P Pulse Ox O2 Delivery O2 Flow Rate FiO2 01/04/17 13:00 91 01/04/17 12:00 88 01/04/17 11:51 96 01/04/17 11:00 90 01/04/17 11:00 98.3 90 18 106/66 94 01/04/17 10:00 98 01/04/17 09:00 98 01/04/17 08:21 97 01/04/17 08:00 94 01/04/17 07:00 94 01/04/17 07:00 98.2 102 20 118/71 95 01/04/17 07:00 95 Room Air 01/04/17 06:00 90 01/04/17 05:00 92 01/04/17 04:00 Room Air 01/04/17 04:00 98.3 95 18 102/55 93 01/04/17 04:00 95 01/04/17 03:00 93 01/04/17 02:00 90 01/04/17 01:00 94 01/04/17 00:00 91 01/04/17 00:00 Room Air 01/04/17 00:00 98.2 91 20 107/60 97 01/03/17 23:00 94 01/03/17 22:00 92 01/03/17 21:00 99 01/03/17 20:35 99 21 01/03/17 20:00 98.0 98 20 106/63 98 01/03/17 20:00 98 01/03/17 18:01 98 01/03/17 17:00 92 01/03/17 16:01 90 01/03/17 15:30 98.2 92 18 112/57 98 01/03/17 15:00 86 I/O 01/03/17 01/03/17 01/03/17 01/04/17 01/04/17 01/04/17 07:00 15:00 23:00 07:00 15:00 23:00 Intake Total 720 ml 1933 ml 840 ml Output Total 450 ml 1000 ml 850 ml Balance 270 ml 933 ml -10 ml Intake Oral 720 ml 480 ml 240 ml IV Total 1453 ml 600 ml Output Urine Total 450 ml 1000 ml 850 ml # Voids 4 # Bowel Movements 0 0 Result Diagram: 01/03/17 0430 01/04/17 0624 Imaging Last Impressions Chest X-Ray 01/02/17 0506 Signed Impressions: Service Date/Time: Monday, January 02, 2017 05:17 - CONCLUSION: Development of Bibasilar air space disease. Treatment and followup to resolution. Paul Nascimento MD Chest CT 01/02/17 0000 Signed Impressions: Service Date/Time: Monday, January 02, 2017 09:03 - CONCLUSION: 1. Bibasilar pulmonary infiltrates, right greater than left. 2. Small to moderate right pleural effusion. Small left pleural effusion. Marcos Kee MD Procedures None Other Results Laboratory Tests Test 01/02/17 01/03/17 01/04/17 05:05 04:30 06:24 Prothrombin Time 10.1 SEC Prothromb Time International 0.9 RATIO Ratio Activated Partial 23.4 SEC Thromboplast Time Total Creatine Kinase 71 U/L Troponin I 0.03 NG/ML B-Type Natriuretic Peptide 589 PG/ML White Blood Count 4.9 TH/MM3 Red Blood Count 2.42 MIL/MM3 Hemoglobin 7.3 GM/DL Hematocrit 21.4 % Mean Corpuscular Volume 88.8 FL Mean Corpuscular Hemoglobin 30.2 PG Mean Corpuscular Hemoglobin 34.1 % Concent Red Cell Distribution Width 16.8 % Platelet Count 179 TH/MM3 Mean Platelet Volume 7.2 FL Neutrophils (%) (Auto) 74.1 % Lymphocytes (%) (Auto) 15.1 % Monocytes (%) (Auto) 8.7 % Eosinophils (%) (Auto) 1.5 % Basophils (%) (Auto) 0.6 % Neutrophils # (Auto) 3.6 TH/MM3 Lymphocytes # (Auto) 0.7 TH/MM3 Monocytes # (Auto) 0.4 TH/MM3 Eosinophils # (Auto) 0.1 TH/MM3 Basophils # (Auto) 0.0 TH/MM3 CBC Comment DIFF FINAL Differential Comment Total Bilirubin 0.6 MG/DL Aspartate Amino Transf 25 U/L (AST/SGOT) Alanine Aminotransferase 20 U/L (ALT/SGPT) Alkaline Phosphatase 74 U/L Total Protein 5.7 GM/DL Albumin 2.7 GM/DL Sodium Level 140 MEQ/L Potassium Level 3.9 MEQ/L Chloride Level 110 MEQ/L Carbon Dioxide Level 21.3 MEQ/L Anion Gap 9 MEQ/L Blood Urea Nitrogen 20 MG/DL Creatinine 0.89 MG/DL Estimat Glomerular Filtration 60 ML/MIN Rate Random Glucose 114 MG/DL Calcium Level 8.2 MG/DL Magnesium Level 2.2 MG/DL Objective Remarks GENERAL: Awake, alert, No acute distress. SKIN: Focused skin assessment warm/dry. HEAD: Atraumatic. Normocephalic. EYES: Pupils equal and round. No scleral icterus. No injection or drainage. ENT: No nasal bleeding or discharge. Mucous membranes pink and moist. NECK: Trachea midline. No JVD. CARDIOVASCULAR: Regular, tachycardic RESPIRATORY: Decreased breath sounds bilateral, no wheezing or crackles. GASTROINTESTINAL: Abdomen soft, non-tender, nondistended. MUSCULOSKELETAL: No obvious deformities. No clubbing. No cyanosis. Mild bilateral lower extremity pitting edema. NEUROLOGICAL: Awake and alert. No obvious cranial nerve deficits. Motor grossly within normal limits. Normal speech. PSYCHIATRIC: Appropriate mood and affect; insight and judgment normal. Medications and IVs Current Medications Medications (Trade) Dose Ordered Sig/Eddie Route Start Time Stop Time Status Last Admin (D50w (Vial) Inj) 50 ml UNSCH PRN IV 01/02/17 06:30 (Glucagon Inj) 1 mg UNSCH PRN OTHER 01/02/17 06:30 (NS Flush) 2 ml UNSCH PRN IV FLUSH 01/02/17 06:30 (NS Flush) 2 ml BID IV FLUSH 01/02/17 09:00 01/04/17 08:59 (Heparin Inj) 5,000 units Q12H SQ 01/02/17 09:00 01/04/17 08:58 (Tylenol) 650 mg Q6H PRN PO 01/02/17 06:30 ([place] 5-325 Mg) 1 tab Q4H PRN PO 01/02/17 06:30 ([place] 10-325 Mg) 1 tab Q4H PRN PO 01/02/17 06:30 (Regla-Colace) 1 tab BID PO 01/02/17 09:00 01/04/17 08:58 (Milk Of Magnesia Liq) 30 ml Q12H PRN PO 01/02/17 06:30 (Senokot) 17.2 mg Q12H PRN PO 01/02/17 06:30 (Dulcolax Supp) 10 mg DAILY PRN RECTAL 01/02/17 06:30 (Lactulose Liq) 30 ml DAILY PRN PO 01/02/17 06:30 (Ecotrin Ec) 81 mg DAILY PO 01/02/17 09:00 01/04/17 08:58 (Lexapro) 20 mg DAILY PO 01/02/17 09:00 01/04/17 08:58 (Synthroid) 25 mcg DAILY@0600 PO 01/02/17 06:30 01/04/17 05:21 (Desyrel) 50 mg HS PO 01/02/17 21:00 01/03/17 20:17 Pravastatin Sodium 10 mg 10 mg DAILY PO 01/02/17 09:00 01/04/17 08:58 (Levaquin 750 Mg Premix Inj) 150 ml @ 100 mls/hr Q48H IV 01/02/17 16:00 01/02/17 18:00 (Mucinex Er) 600 mg BID PO 01/02/17 21:00 01/04/17 08:58 A/P Assessment and Plan 1. Respiratory Insufficiency multifactorial the patient has history of CHF, Oxygen, Lasix IV, CXR and CT scan of the chest positive for basilar infiltrates,was seen by health insurance specialist and recommended to give some IV fluids, not clear for CHF as the reason for this actual symptoms, her BNP was 589, troponin negative, recommended to treat her Pneumonia continue Levaquin and respiratory therapy as needed, will take a new CXR if improving will discharge Home. 2. Pneumonia has bilateral pulmonary infiltrates, will give Bronchodilator, Mucolytic and incentive spirometry, given Levaquin taken blood cultures and sputum culture, Legionella antigen and Pneumococcal antigen. negative cultures. 3. Hyperlipidemia to continue Home medicines 4. DM II continue sliding scale last Hemoglobin A1C on September this year was 4.7 5. Hypoacusis by history 6. Hypertension at this time hypotensive discontinued Lasix by health insurance specialist. Lisinopril on hold, will discharge home on no medicines she is been controlled, discontinued IV fluids at this time. 7. GERD on Carafate. 8. Depression to continue Home medicines 9. Hypothyroidism continue Hormonal replacement 10. Acute kidney Injury Improved with IV fluids. DVT prophylaxis with Heparin Discussed with patient, and nurse Miss Kelly appreciated, all questions answered to the best of my abilities. Code Status Full code. Discharge Planning Discharge home if new CXR within normal limits. Antonio Griffin MD Jan 04, 2017 14:03
--- NOTE | 2017-01-04 14:58 | RADRPT ---
EXAM DATE/TIME: 01/04/2017 14:47 [facility] COMPARISON: CT THORAX W/O CONTRAST, January 02, 2017, 9:03. CHEST SINGLE AP, January 02, 2017, 5:17. INDICATIONS : Short of breath. MEDICAL HISTORY : None. SURGICAL HISTORY : None. ENCOUNTER: Subsequent ACUITY: 4 - 6 days PAIN SCORE: 0/10 LOCATION: Bilateral chest FINDINGS: Bibasilar infiltrates and effusions are grossly stable. Cardiac contours are unchanged. There is dege nerative change in the spine and shoulders. CONCLUSION: Stable basilar infiltrates and effusions. Jhonathan Schaefer MD on January 04, 2017 at 14:51 Board Certified Radiologist. This report was verified electronically.
[2017-01-04] MEDS ORDERED: LEVOFLOXACIN 750 MG PREMIX INJ 150 ML IV SCH (15:00)
--- NOTE | 2017-01-04 20:40 | RADRPT ---
EXAM DATE/TIME: 01/04/2017 20:15 [facility] COMPARISON: US CHEST RIGHT, October 08, 2016, 19:17. INDICATIONS : Pleural effusion. MEDICAL HISTORY : Hypercholesterolemia. Hypertension. Chronic obstructive pulmonary disease. Hypothyroidism. Congestive heart failure. Inflammatory bowel disease. Diabetes. Carcinoma, unspecified. SURGICAL HISTORY : Hysterectomy. Mastectomy, right. Hernia repair. ENCOUNTER: Initial ACUITY: 2 days PAIN SCORE: 0/10 LOCATION: Right chest MEASUREMENTS: SKIN TO PARIETAL PLEURA: 1.54 cm SKIN TO MAX SAFE DEPTH: 3.8 cm ESTIMATED FLUID VOLUME: 564.4 cc FLUID COMPOSITION: simple FINDINGS: Pleural effusion as above. A ying was placed on the skin surface superficial to the pleural fluid col lection. CONCLUSION: Moderate right effusion. Max Frazier MD on January 04, 2017 at 20:37 Board Certified Radiologist. This report was verified electronically.
[2017-01-04] MEDS: traZODone HCL 50 MG TAB PO SCH (21:37)
[2017-01-05] VITALS (23 sets, daily range): BP systolic 97–119; BP diastolic 50–70; PULSE 88–115; RESP 16–20; TEMP 97.6–98.4; O2SAT 79–99
[2017-01-05] MEDS: RESP: ALBUTEROL 2.5 MG/IPRATROPIUM 0.5 MG NEB (SCH) NEB ×4 (00:04→11:37)
[2017-01-05] MEDS: LEVOTHYROXINE SODIUM 25 MCG TAB PO SCH (05:46)
[2017-01-05] MEDS: INSULIN ASPART SUPPLEMENTAL SCALE SQ SCH ×3 (05:49→16:12)
[2017-01-05] MEDS: ESCITALOPRAM OXALATE 20 MG TAB PO SCH (08:14)
[2017-01-05] MEDS: HEPARIN SODIUM - SQ 10,000 UNITS/ML VIAL SQ SCH (08:14)
[2017-01-05] MEDS: PRAVASTATIN SOD 10 MG TAB PO SCH (08:14)
[2017-01-05] MEDS: DOCUSATE SODIUM 50 MG/SENNA 8.6 MG TAB PO SCH (08:14)
[2017-01-05] MEDS: SODIUM CHLORIDE 0.9% FLUSH 10 ML FLUSH IV FLUSH SCH (08:15)
[2017-01-05] MEDS: ASPIRIN EC 81 MG TABEC PO SCH (08:15)
[2017-01-05] MEDS: guaiFENesin E.R. 600 MG TAB PO SCH (09:07)
--- NOTE | 2017-01-05 10:07 | HHI.PR ---
Subjective Remarks This is a pleasant 86 y/o Female who came to ER due to Shortness of breath that started one day before coming to ER, The patient was awakened with shortness of breath and mild chest discomfort, described as tightness. The patient notes a history of congestive heart failure with recent admission, however, was recently taken off of her Lasix secondary to cramping. The patient's symptoms are worse when lying supine as well as walking. She notes minimal edema to lower extremities, but significant orthopnea. She denies any history of pulmonary embolism or DVT. The patient's public information director is Dr. Flynn Augustin. The patient denied any diaphoresis, but did complain of mild nausea with one episode of vomiting upon arrival to the emergency department. Symptoms are moderate, worse with exertion and lying supine, with no current alleviating factors. As we know she has Hyperlipidemia, CHF, DM II, Hypoacusis, Hypertension, Depression,Hypothyroidism The patient was seen in her bedroom in the presence of nurse Mr. Howell and her Daughter Mrs. Anjali Lynn, the patient woke up at 4 am with Shortness of breath, also productive cough, mild worsening Acute Kidney Injury on chronic kidney failure stage III. 01/03: Seen in her bedroom in the presence of her Daughter no new issues, , continue antibiotics, plan for discharge in am tomorrow after dose of Levaquin given and will continue as outpatient. no complaint. 01/04: Stable in her bedroom, seen by staffing specialist no further recommendations, training development specialist discontinued Lasix and signed off the case, no further recommendations the patient is improving her condition, will take a new CXR and follow if improving will discharge Home later continue present care at this time. 01/05: Seen in her bedroom in the presence of her Daughter, no nausea, vomit or diarrhea, was recommended yesterday for sustainable agriculture specialist and seen by sustainable agriculture specialist Doctor Sharon Agree with Thoracentesis, discussed today with her Primary sustainable agriculture specialist Doctor Salvador he will see the patient later today. today she is having more Shortness of breath. Objective Vital Signs Date Time Temp Pulse Resp B/P Pulse Ox O2 Delivery O2 Flow Rate FiO2 01/05/17 09:00 104 01/05/17 08:00 92 01/05/17 07:51 97 01/05/17 07:00 91 01/05/17 07:00 97.6 101 18 119/66 97 01/05/17 06:00 90 01/05/17 05:00 95 01/05/17 04:00 88 01/05/17 03:00 94 01/05/17 03:00 98.2 98 16 101/50 97 01/05/17 02:00 97 01/05/17 01:00 94 01/05/17 00:08 94 21 01/05/17 00:06 94 21 01/05/17 00:00 90 01/04/17 23:00 114 01/04/17 23:00 98.1 92 18 93/53 96 01/04/17 22:00 98 01/04/17 21:00 100 01/04/17 20:31 92 21 01/04/17 20:00 104 01/04/17 19:00 104 01/04/17 19:00 96 Room Air 01/04/17 19:00 98.3 90 20 96/56 96 01/04/17 18:00 81 01/04/17 17:00 94 01/04/17 16:00 93 01/04/17 15:00 88 01/04/17 15:00 98.4 86 18 98/54 100 01/04/17 14:00 84 01/04/17 13:00 91 01/04/17 12:00 88 01/04/17 11:51 96 01/04/17 11:00 90 01/04/17 11:00 98.3 90 18 106/66 94 I/O 01/04/17 01/04/17 01/04/17 01/05/17 01/05/17 01/05/17 07:00 15:00 23:00 07:00 15:00 23:00 Intake Total 840 ml 1382 ml 480 ml Output Total 850 ml 900 ml Balance -10 ml 1382 ml -420 ml Intake Oral 240 ml 840 ml 480 ml IV Total 600 ml 542 ml Output Urine Total 850 ml 900 ml # Voids 4 # Bowel Movements 0 1 Result Diagram: 01/03/17 0430 01/04/17 0624 Imaging Last Impressions Chest X-Ray 01/04/17 1347 Signed Impressions: Service Date/Time: Wednesday, January 04, 2017 14:47 - CONCLUSION: Stable basilar infiltrates and effusions. Jhonathan Schaefer MD Chest Ultrasound 01/04/17 0000 Signed Impressions: Service Date/Time: Wednesday, January 04, 2017 20:15 - CONCLUSION: Moderate right effusion. Max Frazier MD Chest CT 01/02/17 0000 Signed Impressions: Service Date/Time: Monday, January 02, 2017 09:03 - CONCLUSION: 1. Bibasilar pulmonary infiltrates, right greater than left. 2. Small to moderate right pleural effusion. Small left pleural effusion. Marcos Kee MD Procedures None Other Results Laboratory Tests Test 01/02/17 01/03/17 01/04/17 05:05 04:30 06:24 Prothrombin Time 10.1 SEC Prothromb Time International 0.9 RATIO Ratio Activated Partial 23.4 SEC Thromboplast Time Total Creatine Kinase 71 U/L Troponin I 0.03 NG/ML B-Type Natriuretic Peptide 589 PG/ML White Blood Count 4.9 TH/MM3 Red Blood Count 2.42 MIL/MM3 Hemoglobin 7.3 GM/DL Hematocrit 21.4 % Mean Corpuscular Volume 88.8 FL Mean Corpuscular Hemoglobin 30.2 PG Mean Corpuscular Hemoglobin 34.1 % Concent Red Cell Distribution Width 16.8 % Platelet Count 179 TH/MM3 Mean Platelet Volume 7.2 FL Neutrophils (%) (Auto) 74.1 % Lymphocytes (%) (Auto) 15.1 % Monocytes (%) (Auto) 8.7 % Eosinophils (%) (Auto) 1.5 % Basophils (%) (Auto) 0.6 % Neutrophils # (Auto) 3.6 TH/MM3 Lymphocytes # (Auto) 0.7 TH/MM3 Monocytes # (Auto) 0.4 TH/MM3 Eosinophils # (Auto) 0.1 TH/MM3 Basophils # (Auto) 0.0 TH/MM3 CBC Comment DIFF FINAL Differential Comment Total Bilirubin 0.6 MG/DL Aspartate Amino Transf 25 U/L (AST/SGOT) Alanine Aminotransferase 20 U/L (ALT/SGPT) Alkaline Phosphatase 74 U/L Total Protein 5.7 GM/DL Albumin 2.7 GM/DL Sodium Level 140 MEQ/L Potassium Level 3.9 MEQ/L Chloride Level 110 MEQ/L Carbon Dioxide Level 21.3 MEQ/L Anion Gap 9 MEQ/L Blood Urea Nitrogen 20 MG/DL Creatinine 0.89 MG/DL Estimat Glomerular Filtration 60 ML/MIN Rate Random Glucose 114 MG/DL Calcium Level 8.2 MG/DL Magnesium Level 2.2 MG/DL Objective Remarks GENERAL: Awake, alert, No acute distress. SKIN: Focused skin assessment warm/dry. HEAD: Atraumatic. Normocephalic. EYES: Pupils equal and round. No scleral icterus. No injection or drainage. ENT: No nasal bleeding or discharge. Mucous membranes pink and moist. NECK: Trachea midline. No JVD. CARDIOVASCULAR: Regular, tachycardic RESPIRATORY: Decreased breath sounds bilateral, accentuated on the right base. GASTROINTESTINAL: Abdomen soft, non-tender, nondistended. MUSCULOSKELETAL: No obvious deformities. No clubbing. No cyanosis. Mild bilateral lower extremity pitting edema. NEUROLOGICAL: Awake and alert. No obvious cranial nerve deficits. Motor grossly within normal limits. Normal speech. PSYCHIATRIC: Appropriate mood and affect; insight and judgment normal. Medications and IVs Current Medications Medications (Trade) Dose Ordered Sig/Eddie Route Start Time Stop Time Status Last Admin (D50w (Vial) Inj) 50 ml UNSCH PRN IV 01/02/17 06:30 (Glucagon Inj) 1 mg UNSCH PRN OTHER 01/02/17 06:30 (NS Flush) 2 ml UNSCH PRN IV FLUSH 01/02/17 06:30 (NS Flush) 2 ml BID IV FLUSH 01/02/17 09:00 01/05/17 08:15 (Heparin Inj) 5,000 units Q12H SQ 01/02/17 09:00 01/05/17 08:14 (Tylenol) 650 mg Q6H PRN PO 01/02/17 06:30 ([place] 5-325 Mg) 1 tab Q4H PRN PO 01/02/17 06:30 ([place] 10-325 Mg) 1 tab Q4H PRN PO 01/02/17 06:30 (Regla-Colace) 1 tab BID PO 01/02/17 09:00 01/05/17 08:14 (Milk Of Magnesia Liq) 30 ml Q12H PRN PO 01/02/17 06:30 (Senokot) 17.2 mg Q12H PRN PO 01/02/17 06:30 (Dulcolax Supp) 10 mg DAILY PRN RECTAL 01/02/17 06:30 (Lactulose Liq) 30 ml DAILY PRN PO 01/02/17 06:30 (Ecotrin Ec) 81 mg DAILY PO 01/02/17 09:00 01/05/17 08:15 (Lexapro) 20 mg DAILY PO 01/02/17 09:00 01/05/17 08:14 (Synthroid) 25 mcg DAILY@0600 PO 01/02/17 06:30 01/05/17 05:46 (Desyrel) 50 mg HS PO 01/02/17 21:00 01/04/17 21:37 (Pravachol) 10 mg DAILY PO 01/02/17 09:00 01/05/17 08:14 Guaifenesin 600 mg 600 mg BID PO 01/02/17 21:00 01/05/17 09:07 (Levaquin 750 Mg Premix Inj) 150 ml @ 100 mls/hr Q24H IV 01/04/17 15:00 01/04/17 15:11 A/P Assessment and Plan 1. Respiratory Insufficiency multifactorial the patient has history of CHF, Oxygen, Lasix IV, CXR and CT scan of the chest positive for basilar infiltrates,was seen by training development specialist and recommended to give some IV fluids, not clear for CHF as the reason for this actual symptoms, her BNP was 589, troponin negative, recommended to treat her Pneumonia continue Levaquin and respiratory therapy as needed, new Chest X ray continue with moderate Pleural Effusion, on the right side, asked for Thoracentesis and followed by sustainable agriculture specialist. 2. Pneumonia has bilateral pulmonary infiltrates, will give Bronchodilator, Mucolytic and incentive spirometry, given Levaquin taken blood cultures and sputum culture, Legionella antigen and Pneumococcal antigen. negative cultures. continue Levaquin 3. Hyperlipidemia to continue Home medicines 4. DM II continue sliding scale last Hemoglobin A1C on September this year was 4.7 5. Hypoacusis by history 6. Hypertension Mild Hypotension on hold Lisinopril and diuretics. 7. GERD on Carafate. 8. Depression to continue Home medicines 9. Hypothyroidism continue Hormonal replacement 10. Acute kidney Injury Improved with IV fluids. DVT prophylaxis with Heparin Discussed with patient her Daughter and nurse Miss Kelly marlon, all questions answered to the best of my abilities. Code Status Full code. Discharge Planning Awaiting final recommendations by sustainable agriculture specialist for discharge. Antonio Griffin MD Jan 05, 2017 10:07
--- NOTE | 2017-01-05 10:25 | MB ---
cc: DELORES MCLEOD, DATE OF CONSULTATION: 01/04/[address] Toth REASON FOR CONSULTATION Evaluate for pleural effusion. HISTORY OF PRESENT ILLNESS: Miss Quinones is a 86-year-old white female with a history of congestive heart failure, diabetes mellitus, CA of the breast. The patient was taking Lasix. She started getting more short of breath and also has low blood pressure. Her Lasix was discontinued. She did not have any chest pain. No fever or chills. No night sweats. She has cough and congestion, small amount of sputum production. She was seen the emergency room she had a workup done. Her CT scan of the chest shows she has bibasilar pulmonary infiltrates with bilateral pleural effusion, right more than the left. LABORATORY FINDINGS: Her CBC showed WBC count for 0.9, hemoglobin 7.3, 921.4 mCi at the 179, sodium 140, potassium 3.9, chloride 110, CO2 21, BUN 20, 8089. Troponin INR is 019. PAST MEDICAL HISTORY: Past medical history is significant for history of congestive heart failure, diabetes mellitus, hypertension, CA of the breast status post right mastectomy and breast. Prior history of CA of the uterus status post hysterectomy ovariectomy. A history of left breast lumpectomy, cholecystectomy and appendectomy. MEDICATIONS She is currently taking 1. Levaquin 750 mg of. 2. Trazodone 50 mg at night time. 3. Mucinex 4. Dulcolax 5. Nebulizer treatment. 6. Heparin 5000 q. 12-hour 7. Pravachol 10 mg a day 8. Insulin on sliding scale. 9. [place] 10/325 p.r.n. for pain 10. Levothyroxine 25 mcg a day. 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 FAMILY HISTORY: Family she is a . She had three children, one son with throat cancer. She has one son and one daughter. REVIEW OF SYSTEMS Normocephalic, atraumatic she has lost weight. No DVT or pulmonary embolism. No seizure, stroke or epilepsy. PHYSICAL EXAMINATION: IN GENERAL: A pleasant elderly female not in acute distress. VITAL SIGNS: Blood pressure 98/54, heart rate 93, respirations 16, temperature 98.4 HEAD, EYES, EARS, NOSE, AND THROAT: Examination unremarkable. She has left eye cataract and has markedly decreased vision has a right eye cataract surgery done. Oral mucosa, nasal mucosa normal. No discharge. CHEST: he has dull percussion with decreased breath sound on the right base. CARDIOVASCULAR SYSTEM: S1, S2 is normal. ABDOMEN: Soft, nondistended. Bowel sounds are present EXTREMITIES: No edema. IMPRESSION 1. Bilateral pleural effusion more on the right than on the left 2. Bibasilar lung infiltrate. 3. Congestive heart failure 4. Borderline decreased blood pressure 5. History of CA of the breast status post mastectomy, chemotherapy and radiation treatment. 6. History of CA of the uterus status post hysterectomy. 7. Anxiety depression 8. Diabetes mellitus. PLAN Discussed with the patient she will need thoracentesis was seen with ultrasound of the chest, if she has significant effusion proceed with thoracentesis. Continue antibiotic, diuretics are on hold because of low blood pressure. The further treatment will depend on the course in the hospital. Thank you Dr. Toth for this consultation.. MD KRISTINA Chambers/brian /7:08 PM /9:59 AM
--- NOTE | 2017-01-05 14:29 | RADRPT ---
EXAM DATE/TIME: 01/05/2017 13:28 [facility] COMPARISON: No previous studies available for comparison. INDICATIONS : Right pleural effusion. MEDICAL HISTORY : Hypothyroidism. Hypertension. Hypercholesterolemia. COPD. SURGICAL HISTORY : Cholecystectomy Hysterectomy. Hernia repair. Right breast implant. ENCOUNTER: Subsequent ACUITY: 1 day PAIN SCORE: 3/10 LOCATION: Right chest. FLUID: Total volume of 800 cc of rick. fluid was removed. Fluid was sent to lab for ordered studies. TECHNIQUE: 1. Ultrasound guidance for thoracentesis. 2. Thoracentesis. The risks, benefits, and alternatives to ultrasound guided thoracentesis were explained to the patien t in lay simple terms, including the risk of bleeding and infection. Written and verbal informed con sent was obtained. Appropriate area for thoracentesis was marked under ultrasound guidance with the patient in the uprig ht position. Overlying skin was prepped and draped in the usual sterile fashion and with local anest hetic, a dermatotomy was made with an 11 blade scalpel. A 6 [place] thoracentesis catheter was placed in the pleural space and fluid was removed. Catheter was then removed and a sterile dressing applie d. There were no immediate complications. The patient tolerated the procedure well and the left the ultrasound suite in stable condition. Chest radiograph is to be obtained. CONCLUSION: Uncomplicated ultrasound guided thoracentesis. Tj Aguilar MD on January 05, 2017 at 14:27 Board Certified Radiologist. This report was verified electronically.
--- NOTE | 2017-01-05 14:29 | RADRPT ---
EXAM DATE/TIME: 01/05/2017 14:02 [facility] COMPARISON: CHEST PA & LAT, January 04, 2017, 14:47. INDICATIONS : Post right thoracentesis. MEDICAL HISTORY : Carcinoma, breast. Chronic obstructive pulmonary disease. SURGICAL HISTORY : Cholecystectomy. ENCOUNTER: Subsequent ACUITY: 3 days PAIN SCORE: 0/10 LOCATION: Bilateral chest FINDINGS: A single frontal expiratory view of the chest was performed. Bibasilar patchiness is again noted. No evidence of pneumothorax. Mediastinal structures are in the midline. The cardio-mediastinal contours and bronchopulmonary markings are unremarkable for an expiratory exam . Osseous structures are intact. CONCLUSION: No pneumothorax identified status post right thoracentesis. Bibasilar patchiness is s table. Tj Aguilar MD on January 05, 2017 at 14:25 Board Certified Radiologist. This report was verified electronically.
[2017-01-05 16:00] LABS: PLEURAL FLUID LYMPHS 87 %
[2017-01-05] MEDS ORDERED: RESP: ALBUTEROL 2.5 MG/IPRATROPIUM 0.5 MG NEB (SCH) NEB (16:00)
--- NOTE | 2017-01-05 16:45 | HHI.DS ---
Discharge Summary Admission Date Jan 02, 2017 at 06:16 Discharge Date: Jan 05, 2017 Admitting Diagnosis congestive heart failure, hypoxemia (1) PNA (pneumonia) ICD Code: J18.9 Diagnosis: Principal (2) Acute renal insufficiency ICD Code: N28.9 Diagnosis: Principal (3) Hypoxia ICD Code: R09.02 Diagnosis: Principal (4) Pleural effusion due to CHF (congestive heart failure) ICD Code: I50.9 Diagnosis: Principal Procedures Thoracentesis Right Lung. Brief History - From Admission This is a pleasant 86 y/o Female who came to ER due to Shortness of breath that started one day before coming to ER, The patient was awakened with shortness of breath and mild chest discomfort, described as tightness. The patient notes a history of congestive heart failure with recent admission, however, was recently taken off of her Lasix secondary to cramping. The patient's symptoms are worse when lying supine as well as walking. She notes minimal edema to lower extremities, but significant orthopnea. She denies any history of pulmonary embolism or DVT. The patient's supervisor jewelry department is Dr. Flynn Augustin. The patient denied any diaphoresis, but did complain of mild nausea with one episode of vomiting upon arrival to the emergency department. Symptoms are moderate, worse with exertion and lying supine, with no current alleviating factors. As we know she has Hyperlipidemia, CHF, DM II, Hypoacusis, Hypertension, Depression,Hypothyroidism The patient was seen in her bedroom in the presence of nurse Dante and her Daughter Mrs. Anjali Lynn, the patient woke up at 4 am with Shortness of breath, also productive cough, mild worsening Acute Kidney Injury on chronic kidney failure stage III. CBC/BMP: 01/03/17 0430 01/04/17 0624 Significant Findings Laboratory Tests Test 01/03/17 01/04/17 01/04/17 04:30 06:24 13:50 Red Blood Count 2.42 MIL/MM3 (4.00-5.30) Hemoglobin 7.3 GM/DL (11.6-15.3) Hematocrit 21.4 % (35.0-46.0) Neutrophils (%) (Auto) 74.1 % (16.0-70.0) Monocytes (%) (Auto) 8.7 % (0.0-8.0) Lymphocytes # (Auto) 0.7 TH/MM3 (1.0-4.8) Chloride Level 109 MEQ/L 110 MEQ/L (98-107) (98-107) Blood Urea Nitrogen 25 MG/DL (7-18) 20 MG/DL (7-18) Creatinine 1.08 MG/DL (0.50-1.00) Estimat Glomerular Filtration 48 ML/MIN (>89) 60 ML/MIN (>89) Rate Random Glucose 119 MG/DL 114 MG/DL (74-106) (74-106) Calcium Level 7.8 MG/DL 8.2 MG/DL (8.5-10.1) (8.5-10.1) Total Protein 5.7 GM/DL (6.4-8.2) Albumin 2.7 GM/DL (3.4-5.0) Pleural Fluid WBC 92 /MM3 (0-10) Pleural Fluid RBC 1484 /MM3 (0-0) Imaging Last Impressions Thoracentesis Ultrasound 01/05/17 0000 Signed Impressions: Service Date/Time: Thursday, January 05, 2017 13:28 - CONCLUSION: Uncomplicated ultrasound guided thoracentesis. Tj Aguilar MD Chest X-Ray 01/05/17 0000 Signed Impressions: Service Date/Time: Thursday, January 05, 2017 14:02 - CONCLUSION: No pneumothorax identified status post right thoracentesis. Bibasilar patchiness is stable. Tj Aguilar MD Chest Ultrasound 01/04/17 0000 Signed Impressions: Service Date/Time: Wednesday, January 04, 2017 20:15 - CONCLUSION: Moderate right effusion. Max Frazier MD Chest CT 01/02/17 0000 Signed Impressions: Service Date/Time: Monday, January 02, 2017 09:03 - CONCLUSION: 1. Bibasilar pulmonary infiltrates, right greater than left. 2. Small to moderate right pleural effusion. Small left pleural effusion. Marcos Kee MD PE at Discharge GENERAL: Awake, alert, No acute distress. SKIN: Focused skin assessment warm/dry. HEAD: Atraumatic. Normocephalic. EYES: Pupils equal and round. No scleral icterus. No injection or drainage. ENT: No nasal bleeding or discharge. Mucous membranes pink and moist. NECK: Trachea midline. No JVD. CARDIOVASCULAR: Regular, tachycardic RESPIRATORY: Decreased breath sounds bilateral, accentuated on the right base. GASTROINTESTINAL: Abdomen soft, non-tender, nondistended. MUSCULOSKELETAL: No obvious deformities. No clubbing. No cyanosis. Mild bilateral lower extremity pitting edema. NEUROLOGICAL: Awake and alert. No obvious cranial nerve deficits. Motor grossly within normal limits. Normal speech. PSYCHIATRIC: Appropriate mood and affect; insight and judgment normal. Hospital Course This is a pleasant 86 y/o Female who came to ER due to Shortness of breath that started one day before coming to ER, The patient was awakened with shortness of breath and mild chest discomfort, described as tightness. The patient notes a history of congestive heart failure with recent admission, however, was recently taken off of her Lasix secondary to cramping. The patient's symptoms are worse when lying supine as well as walking. She notes minimal edema to lower extremities, but significant orthopnea. She denies any history of pulmonary embolism or DVT. The patient's supervisor jewelry department is Dr. Flynn Augustin. The patient denied any diaphoresis, but did complain of mild nausea with one episode of vomiting upon arrival to the emergency department. Symptoms are moderate, worse with exertion and lying supine, with no current alleviating factors. As we know she has Hyperlipidemia, CHF, DM II, Hypoacusis, Hypertension, Depression,Hypothyroidism The patient was seen in her bedroom in the presence of nurse Mr. Howell and her Daughter Mrs. Anjali Lynn, the patient woke up at 4 am with Shortness of breath, also productive cough, mild worsening Acute Kidney Injury on chronic kidney failure stage III. 01/03: Seen in her bedroom in the presence of her Daughter no new issues, , continue antibiotics, plan for discharge in am tomorrow after dose of Levaquin given and will continue as outpatient. no complaint. 01/04: Stable in her bedroom, seen by computer system specialist no further recommendations, histology specialist discontinued Lasix and signed off the case, no further recommendations the patient is improving her condition, will take a new CXR and follow if improving will discharge Home later continue present care at this time. 6/27: Seen in her bedroom in the presence of her Daughter, no nausea, vomit or diarrhea, was recommended yesterday for animal care specialist and seen by animal care specialist Doctor Sharon Agree with Thoracentesis, discussed today with her Primary animal care specialist Doctor Franco he will see the patient later today. today she is having more Shortness of breath. Seen by Doctor Franco at this time and recommended after Thoracentesis, if no Pneumothorax and was proved by CXR no Pneumothorax he was called and he states discharge the patient and follow in his office in two weeks. will follow with PCP also Assessment and Plan 1. Respiratory Insufficiency multifactorial the patient has history of CHF, Oxygen, Lasix IV, CXR and CT scan of the chest positive for basilar infiltrates,was seen by histology specialist and recommended to give some IV fluids, not clear for CHF as the reason for this actual symptoms, her BNP was 589, troponin negative, recommended to treat her Pneumonia continue Levaquin and respiratory therapy as needed, new Chest X ray continue with moderate Pleural Effusion, on the right side, status post Thoracentesis, no pneumothorax after procedure, evaluated by Doctor Salvador animal care specialist and recommended to discharge home now and follow with him in two weeks. 2. Pneumonia has bilateral pulmonary infiltrates, will give Bronchodilator, Mucolytic and incentive spirometry, given Levaquin taken blood cultures and sputum culture, Legionella antigen and Pneumococcal antigen. negative cultures. continue Levaquin 3. Hyperlipidemia to continue Home medicines 4. DM II continue sliding scale last Hemoglobin A1C on September this year was 4.7 continue home medicines. 5. Hypoacusis by history 6. Hypertension Mild Hypotension on hold Lisinopril and diuretics. will need to be followed by her Primary care physician and titrate this medicines as needed. 7. GERD on Carafate. 8. Depression to continue Home medicines 9. Hypothyroidism continue Hormonal replacement 10. Acute kidney Injury Improved with IV fluids were discontinued. DVT prophylaxis with Heparin Discussed with patient her Daughter and nurse Miss Kelly appreciated, all questions answered to the best of my abilities. Code Status Full code. Discharge Planning okay to discharge by animal care specialist Doctor Jhonathan Franco appreciated input and recommendations by specialist. Pt Condition on Discharge: Good Discharge Disposition: Discharge Home Discharge Time: > 30 minutes Discharge Instructions DIET: Follow Instructions for: Heart Healthy Diet, Diabetic Diet Activities you can perform: Regular-No Restrictions Antonio Griffin MD Jan 05, 2017 16:45
--- NOTE | 2017-01-06 06:49 | MB ---
cc: JanYARELIROBYN DATE OF CONSULTATION 01/05/2017 REASON FOR CONSULTATION Respiratory distress and pleural effusions. HISTORY OF PRESENT ILLNESS This is an 86-year-old white female with a history of recurrent pleural effusions and CHF. She has previously had a thoracentesis done. The patient was on Lasix but had to stop it recently since her blood pressure was low and following that the patient developed some cough, congestion, wheezing and orthopnea. A CT scan of the chest showed bibasilar pulmonary infiltrates and pleural effusion smaller on the right side. The patient was sent for an ultrasound examination of the chest which showed a moderate sized effusion on the right about 550 cc. The patient denies hemoptysis, night sweats, or fevers. She has had diabetes and hypertension and a history of breast cancer with right mastectomy. OTHER PAST HISTORY Includes a history of: 1. Breast cancer 2. History of hysterectomy for cancer of the uterus. 3. Left breast lumpectomy 4. Cholecystectomy 5. Appendectomy ALLERGIES PENICILLIN MEDICATION LIST Included: 1. Trazodone 50 mg at bedtime 2. Mucinex one tablet b.i.d. 3. Nebulizer therapy three times a day with DuoNeb 4. Heparin twice daily 5. Vancomycin as ordered HABITS The patient never smoked. No significant alcohol use. She worked as a health care education administrator. FAMILY HISTORY Noncontributory REVIEW OF SYSTEMS Patient has lost weight. She has headaches, dizziness, postnasal drip. She has epigastric distress and nausea with no urinary symptoms. No leg or calf muscle pains. She has some joint pains of her extremities. REVIEW OF SYSTEMS The patient has had weight loss. She has had mild leg swelling. She has urinary frequency and she has epigastric distress with reflux. The other system review is negative x6 systems. PHYSICAL EXAMINATION This is a thinly built elderly white female in no acute distress. VITAL SIGNS: Blood pressure 100/60, pulse 92, respirations are 18, temperature 97.5. HEENT: Head normocephalic. Pupils reactive. Tongue moist. Nasal mucosa injected. Throat is clear. NECK: Supple with mild venous distension at 45 degrees. Trachea midline. No thyroid enlargement. CHEST: Equal movements with decreased breath sounds at the bases, mostly the right side with occasional crackles. Wheezes throughout both lung garcia with bibasilar crackles. HEART: The heart sounds are irregular S1 and S2. No murmur. No S3. ABDOMEN: Soft, scaphoid and benign. No masses or organomegaly. EXTREMITIES: No edema. Mild varicosities, decreased pulses. Reflexes are 1+ with no gross motor deficits. NEUROLOGIC: Cranial nerves grossly intact. RECTAL: Exam is deferred. IMPRESSION 1. Bilateral pleural effusions, more on the right 2. Bibasilar atelectasis 3. CHF with cardiomyopathy 4. Hypotension PLAN The patient has been placed on O2 at two liters. She will be sent for an ultrasound-guided thoracentesis and radiology. A chest x-ray to be repeated after thoracentesis. Diuretic therapy to be continued daily and inhaled Ventolin 2 puffs q.i.d. p.r.n. If the O2 sats improve, the oxygen with will be weaned off today and she could be followed as an outpatient. Thank you Dr. Toth for this consultation. MD ALIYAH Davis/THELMA /11:18 PM /6:37 AM
[2017-01-06] MEDS ORDERED: LEVOFLOXACIN 500 MG TAB PO SCH (09:00)
[2017-01-07 15:13] LABS: BODY FLUID LDH 66 U/L (()); BODY FLUID LDH SOURCE PLEURAL (())
== END 2017-01-05 17:36 | disposition home or self-care (01) | DRG 194 ==
LOC: NEPE 04:57 → NEDA 06:16 → HCIS 08:24
PROVIDERS: ADMIT Internal Medicine; ATTEND Internal Medicine
PROC: 0W993ZZ Drainage of Right Pleural Cavity, Percutaneous Approach (ICD-10-PCS; principal; 2017-01-05)
DX: J18.9 Pneumonia, unspecified organism (principal); I13.0 Hypertensive heart and chronic kidney disease with heart failure and stage 1 through stage 4 chronic kidney disease, or unspecified chronic kidney disease; N17.9 Acute kidney failure, unspecified; J44.0 Chronic obstructive pulmonary disease with (acute) lower respiratory infection; I50.9 Heart failure, unspecified; I42.9 Cardiomyopathy, unspecified; J98.11 Atelectasis; E11.22 Type 2 diabetes mellitus with diabetic chronic kidney disease; N18.3 Chronic kidney disease, stage 3 (moderate); E03.9 Hypothyroidism, unspecified; E78.5 Hyperlipidemia, unspecified; R09.02 Hypoxemia; F41.8 Other specified anxiety disorders; K21.9 Gastro-esophageal reflux disease without esophagitis; H91.90 Unspecified hearing loss, unspecified ear; Z85.3 Personal history of malignant neoplasm of breast; Z85.42 Personal history of malignant neoplasm of other parts of uterus; Z90.11 Acquired absence of right breast and nipple; Z90.710 Acquired absence of both cervix and uterus
CPT/HCPCS: 32555; 71010; 71020; 71250; 76604; 80048; 80053; 82150; 82550; 82945; 82948; 83615; 83735; 83880; 83986; 84157; 84484; 85025; 85610; 85730; 87040; 87070; 87205; 87449; 89051; 93005; 94150; 94640; 96374; 96375; C1729; J1644; J1815; J1940; J1956; J2405; J7030